=== PATIENT | male | born 1945 | race Caucasian/White ===

== ENCOUNTER 2016-10-15 07:33 | Day surgery (SDC) | payer MEDICARE, OTHER ==
[~2016-10-15 07:33] MED LIST: LACTATED RINGERS 1,000 ML IV ONE; SIMETHICONE 40 MG/0.6 ML 30 ML BOTTLE PO ONE
[2016-10-15] MEDS ORDERED: MIDAZOLAM 2 MG/2 ML VIAL IVP ONE (08:10)
[2016-10-15] MEDS ORDERED: fentaNYL 250 MCG/5 ML VIAL IVP ONE (08:10)
== END 2016-10-15 07:34 | disposition home or self-care (01) ==
PROC: 0DBP8ZX Excision of Rectum, Via Natural or Artificial Opening Endoscopic, Diagnostic (ICD-10-PCS; principal; 2016-10-15 08:30)
DX: Z12.11 Encounter for screening for malignant neoplasm of colon (principal); K62.1 Rectal polyp; K64.8 Other hemorrhoids; Z80.0 Family history of malignant neoplasm of digestive organs
CPT/HCPCS: 45380; A9270; J3010; J7120

== ENCOUNTER 2017-04-08 12:19 | Outpatient (CLI) | payer MEDICARE, OTHER | END 2017-04-08 12:20 | disposition critical access hospital (66) | LOC: EMS 12:19 | PROVIDERS: ATTEND Surgery | DX: R40.4 Transient alteration of awareness (principal); W01.198A Fall on same level from slipping, tripping and stumbling with subsequent striking against other object, initial encounter; Y93.89 Activity, other specified; Y92.89 Other specified places as the place of occurrence of the external cause | CPT/HCPCS: A0425; A0427 ==

== ENCOUNTER 2017-04-08 12:23 | Emergency (ER) | payer MEDICARE, OTHER ==
--- NOTE | 2017-04-08 12:38 | ED Physician Documentation ---
PD HPI Fall - Stated complaint Stated Complaint: GLF - Chief complaint Chief Complaint: General - History obtained from History obtained from: Patient, EMS - History of Present Illness Mechanism of injury: Lost balance Fall distance: Standing position (fell backward) Where injury occurred: Home Injury(ies) location: Head Associated symptoms: LOC (few seconds, about 30 seconds, per family, then was dazed for minutes more. Seemed cleared by EMS arrival.). No: Neck pain, Weakness, Paresthesias, Dyspnea, Nausea / vomiting Worsens with: Palpation Contributing factors: No: Anticoagulated, Intoxicated Similar symptoms before: Has not had sx before Recently seen: Not recently seen Review of Systems Constitutional: denies: Fever, Chills Nose: denies: Rhinorrhea / runny nose, Congestion Throat: denies: Sore throat Cardiac: denies: Chest pain / pressure Respiratory: denies: Cough GI: denies: Abdominal Pain, Nausea, Vomiting Skin: reports: Abrasion (s). denies: Laceration (s) Neurologic: denies: Focal weakness, Numbness, Headache PD PAST MEDICAL HISTORY - Past Medical History Past Medical History: Yes Cardiovascular: None Respiratory: None Neuro: Multiple sclerosis GI: None : None HEENT: None Psych: None Musculoskeletal: Osteoporosis Derm: None Other Past Medical History: MS - Past Surgical History General: Colonoscopy Ortho: Spine surgery - Present Medications Home Medications: Ambulatory Orders Medication Instructions Recorded Confirmed Interferon Beta-1A [Avonex Pen] 30 mcg IM ONCE 10/12/16 04/08/17 Levothyroxine Sodium [Synthroid] 112 mcg PO DAILY 10/12/16 04/08/17 Multivitamin [Multiple Vitamins] 1 each PO DAILY 10/12/16 04/08/17 Calcium Acetate 667 mg PO DAILY 04/08/17 04/08/17 - Allergies Allergies/Adverse Reactions: Allergies Allergy/AdvReac Type Severity Reaction Status Date / Time No Known Drug Allergies Allergy Verified 10/12/16 14:10 - Social History Does the pt smoke?: No Smoking Status: Never smoker PD ED PE NORMAL - Vitals Vital signs reviewed: Yes - General General: Alert and oriented X 3, No acute distress, Well developed/nourished - HEENT HEENT: PERRL, EOMI, Other (mild tenderness with abrasion occiput. ) - Neck Neck: Supple, no meningeal sign, No bony TTP, No adenopathy, Other (full ROM without neck pain nor neuro symptoms. Alert and conversant. ) - Cardiac Cardiac: RRR, No murmur - Respiratory Respiratory: Clear bilaterally - Abdomen Abdomen: Soft, Non tender - Back Back: No spinal TTP - Derm Derm: Normal color, Warm and dry - Extremities Extremities: No tenderness to palpate, Normal ROM s pain - Neuro Neuro: Alert and oriented X 3, auto servicer 2-12 intact, No motor deficit, No sensory deficit, Normal speech, Other - Psych Psych: Normal mood, Normal affect Results - Vitals Vitals: Oxygen O2 Source Room air - Rads (name of study) head CT Radiology: Prelim report reviewed (normal for age. No bleeding. ) PD MEDICAL DECISION MAKING - ED course Complexity details: reviewed results, considered differential (brief concussive symptoms and seems okay now. CT normal. No blood thinners. ), d/w patient Departure - Departure Disposition: 01 Home, Self Care Clinical Impression: Fall from slip, trip, or stumble Qualifiers: Encounter type: initial encounter Qualified Code(s): W01.0XXA - Fall on same level from slipping, tripping and stumbling without subsequent striking against object, initial encounter Mild concussion Qualifiers: Encounter type: initial encounter Loss of consciousness presence/duration: with LOC of 30 min or less Qualified Code(s): S06.0X1A - Concussion with loss of consciousness of 30 minutes or less, initial encounter Condition: Stable Record reviewed to determine appropriate education?: Yes Instructions: ED Concussion Follow-Up: Johana Cortes MD [Primary Care Provider] - Comments: Tylenol if needed for headache or pains. Cleanse the abrasion on her scalp twice daily and apply some antibiotic ointment or some ointment so does not get dry and hard. Recheck if signs of worse head injury. Expect likely some mild headaches, slight confusion, worsened balance mildly for 2-3 days. Discharge Date/Time: 04/08/17 14:06
--- NOTE | 2017-04-08 13:39 | CT Preliminary Report ---
Exam: CT Head W/O IMPRESSION: 1. Chronic white matter disease without significant change given difference in technique compared to 2008. 2. No acute hemorrhage or fracture. 3. Ethmoid sinus inflammatory disease. [facility] SITE ID: [id number]
--- NOTE | 2017-04-08 13:42 | CT Report ---
EXAM: CT HEAD EXAM DATE: 04/08/2017 01:28 PM. CLINICAL HISTORY: Fall with struck head, some concussive sxs. COMPARISON: Brain MRI 01/09/2008. TECHNIQUE: Multiaxial CT images were obtained from the foramen magnum to the vertex. IV contrast: Non e. Reformats: Coronal. In accordance with CT protocol optimization, one or more of the following dose reduction techniques w ere utilized for this exam: automated exposure control, adjustment of mA and/or KV based on patient s ize, or use of iterative reconstructive technique. FINDINGS: Parenchyma: There is mild to moderate periventricular white matter hypodensity. Negative for acute he morrhage. No midline shift or mass effect. Extraaxial Spaces: No abnormal subdural or epidural fluid collection. Ventricles: Normal in size and position. Sinuses: There is ethmoid sinus mucosal thickening. Mastoid sinuses are clear. Bones: No evidence of fracture or calvarial defect. Other: None. IMPRESSION: 1. Chronic white matter disease without significant change given difference in technique compared to 2007. 2. No acute hemorrhage or fracture. 3. Ethmoid sinus inflammatory disease. [facility] Referring Provider Line: [phone] SITE ID: [id number]
[2017-04-08 14:00] VITALS: BP 143/81
== END 2017-04-08 14:06 | disposition home or self-care (01) ==
LOC: EDUNIT# → ED 12:23
DX: S06.0X1A Concussion with loss of consciousness of 30 minutes or less, initial encounter (principal); S00.01XA Abrasion of scalp, initial encounter; W01.0XXA Fall on same level from slipping, tripping and stumbling without subsequent striking against object, initial encounter; Y92.019 Unspecified place in single-family (private) house as the place of occurrence of the external cause; G35 Multiple sclerosis; M81.0 Age-related osteoporosis without current pathological fracture
CPT/HCPCS: 70450; 99283

== ENCOUNTER 2019-12-28 18:51 | Outpatient (CLI) | payer MEDICARE | END 2019-12-28 18:52 | disposition home or self-care (01) | LOC: COV 18:51 | PROVIDERS: ATTEND Family Medicine | DX: R05 Cough (principal); R19.7 Diarrhea, unspecified | CPT/HCPCS: 81599 ==

== ENCOUNTER 2021-06-10 11:51 | Emergency (ER) | payer MEDICARE ==
[2021-06-10 12:02] VITALS: BP 134/72
--- NOTE | 2021-06-10 12:26 | ED Physician Documentation ---
History of Present Illness - Stated complaint Stated Complaint: CATH ISSUES - Chief complaint Chief Complaint: General - History obtained from History obtained from: Patient - Additonal information Additional information: He has had a catheter in for about a week now for BPH and urinary retention. He needs a new leg bag because the leg bag is leaking. The catheter is not leaking itself. Review of Systems Constitutional: reports: Reviewed and negative Eyes: reports: Reviewed and negative Ears: reports: Reviewed and negative Nose: reports: Reviewed and negative PD PAST MEDICAL HISTORY - Past Medical History Cardiovascular: None Respiratory: None GI: None : None HEENT: None Psych: None Musculoskeletal: Osteoporosis Derm: None - Past Surgical History General: Colonoscopy Ortho: Spine surgery - Present Medications Home Medications: Ambulatory Orders Medication Instructions Recorded Confirmed Interferon Beta-1A [Avonex Pen] 30 mcg IM ONCE 10/12/16 04/08/17 Levothyroxine Sodium [Synthroid] 112 mcg PO DAILY 10/12/16 04/08/17 Multivitamin [Multiple Vitamins] 1 each PO DAILY 10/12/16 04/08/17 Calcium Acetate 667 mg PO DAILY 04/08/17 04/08/17 - Allergies Allergies/Adverse Reactions: Allergies Allergy/AdvReac Type Severity Reaction Status Date / Time No Known Drug Allergies Allergy Verified 06/10/21 12:01 - Social History Does the pt smoke?: No Smoking Status: Never smoker PD ED PE NORMAL - Vitals Vital signs reviewed: Yes - General General: Alert and oriented X 3, No acute distress - Male Male : Other (Boateng catheter in place with some leakage from the leg bag, the leg bag was replaced during examination. There is no leaking near the penis itself.) - Neuro Neuro: Alert and oriented X 3, Normal speech Results - Vitals Vitals: Vital Signs - 24 hr 06/10/21 11:54 Temperature 36.3 C L Heart Rate 66 Respiratory 18 Rate Blood Pressure 134/72 H O2 Saturation 97 Oxygen O2 Source Room air Departure - Departure Disposition: 01 Home, Self Care Clinical Impression: Boateng catheter problem Qualifiers: Encounter type: initial encounter Qualified Code(s): T83.9XXA - Unspecified complication of genitourinary prosthetic device, implant and graft, initial encounter Condition: Good Record reviewed to determine appropriate education?: Yes Instructions: ED Catheter Care Boateng, Leg Bag Care Me
== END 2021-06-10 12:30 | disposition home or self-care (01) ==
LOC: ED 11:51
DX: Z46.89 Encounter for fitting and adjustment of other specified devices (principal); Y73.2 Prosthetic and other implants, materials and accessory gastroenterology and urology devices associated with adverse incidents; N40.1 Benign prostatic hyperplasia with lower urinary tract symptoms; R33.8 Other retention of urine
CPT/HCPCS: 99281; 99283

== ENCOUNTER 2021-08-18 20:17 | Emergency (ER) | payer MEDICARE ==
[2021-08-18 20:24] VITALS: BP 165/82
--- NOTE | 2021-08-18 21:20 | ED Physician Documentation ---
History of Present Illness - Stated complaint Stated Complaint: OBSTRUCTED CAMACHO CATH - Chief complaint Chief Complaint: Abd Pain - History obtained from History obtained from: Patient - Additonal information Additional information: 75-year-old man with history of BPH with chronic indwelling camacho presents with inability to drain the Camacho since about 1 PM today. Denies fever, back pain, abdominal pain, hematuria. Does endorse gradual onset increasing suprapubic fullness over the day today. Review of Systems Constitutional: denies: Fever GI: reports: Abdominal Pain : reports: Unable to Void. denies: Hematuria PD PAST MEDICAL HISTORY - Past Medical History Cardiovascular: None Respiratory: None GI: None : None HEENT: None Psych: None Musculoskeletal: Osteoporosis Derm: None - Past Surgical History General: Colonoscopy Ortho: Spine surgery - Present Medications Home Medications: Ambulatory Orders Medication Instructions Recorded Confirmed Interferon Beta-1A [Avonex Pen] 30 mcg IM ONCE 10/12/16 04/08/17 Levothyroxine Sodium [Synthroid] 112 mcg PO DAILY 10/12/16 04/08/17 Multivitamin [Multiple Vitamins] 1 each PO DAILY 10/12/16 04/08/17 Calcium Acetate 667 mg PO DAILY 04/08/17 04/08/17 - Allergies Allergies/Adverse Reactions: Allergies Allergy/AdvReac Type Severity Reaction Status Date / Time No Known Drug Allergies Allergy Verified 08/18/21 20:24 - Social History Does the pt smoke?: No Smoking Status: Never smoker PD ED PE NORMAL - Vitals Vital signs reviewed: Yes - General General: Alert and oriented X 3, No acute distress, Well developed/nourished - HEENT HEENT: Atraumatic, PERRL, EOMI - Abdomen Abdomen: Other (suprapubic fullness, relieved s/p camacho irrigation with immediate release of at least 500cc urine) - Back Back: No CVA TTP - Derm Derm: Normal color, Warm and dry - Extremities Extremities: No deformity - Neuro Neuro: Alert and oriented X 3 Results - Vitals Vitals: Vital Signs - 24 hr 08/18/21 20:21 Temperature 36.3 C L Heart Rate 88 Respiratory 18 Rate Blood Pressure 165/82 H O2 Saturation 97 Oxygen O2 Source Room air PD MEDICAL DECISION MAKING - ED course ED course: 75yM p/w camacho blockage, resolved s/p irrigation. return precautions given. plan to f/u with urology. Departure - Departure Disposition: 01 Home, Self Care Clinical Impression: Malfunction of Camacho catheter Condition: Good Instructions: ED Catheter Care Camacho Comments: You were seen in the emergency department for evaluation of your camacho catheter which was not draining. We irrigated and unblocked it and it is draining well now. Please follow up for your upcoming urology appointment and return to the ED if you have any other issues or concerns. Nice meeting you!
== END 2021-08-18 21:26 | disposition home or self-care (01) ==
LOC: ED 20:17
DX: T83.091A Other mechanical complication of indwelling urethral catheter, initial encounter (principal); R10.9 Unspecified abdominal pain; N40.0 Benign prostatic hyperplasia without lower urinary tract symptoms
CPT/HCPCS: 51798; 99281; 99282

== ENCOUNTER 2021-09-05 20:39 | Emergency (ER) | payer MEDICARE ==
--- NOTE | 2021-09-06 00:08 | ED Physician Documentation ---
History of Present Illness - Stated complaint Stated Complaint: MALE - Chief complaint Chief Complaint: General - History obtained from History obtained from: Patient - Additonal information Additional information: 75-year-old man with chronic urinary retention from BPH presents after having his Boateng removed today. Patient was given coud catheter but was unable to self cath and so came to the emergency department. Asymptomatic aside from some mild suprapubic fullness. Review of Systems Constitutional: denies: Fever, Chills GI: denies: Abdominal Pain : denies: Dysuria, Frequency PD PAST MEDICAL HISTORY - Past Medical History Past Medical History: Yes Cardiovascular: None Respiratory: None GI: None : Retention HEENT: None Psych: None Musculoskeletal: Osteoporosis Derm: None - Past Surgical History General: Colonoscopy Ortho: Spine surgery - Present Medications Home Medications: Ambulatory Orders Medication Instructions Recorded Confirmed Interferon Beta-1A [Avonex Pen] 30 mcg IM ONCE 10/12/16 04/08/17 Levothyroxine Sodium [Synthroid] 112 mcg PO DAILY 10/12/16 04/08/17 Multivitamin [Multiple Vitamins] 1 each PO DAILY 10/12/16 04/08/17 Calcium Acetate 667 mg PO DAILY 04/08/17 04/08/17 - Allergies Allergies/Adverse Reactions: Allergies Allergy/AdvReac Type Severity Reaction Status Date / Time No Known Drug Allergies Allergy Verified 09/05/21 20:41 - Social History Does the pt smoke?: No Smoking Status: Never smoker PD ED PE NORMAL - Vitals Vital signs reviewed: Yes - General General: Alert and oriented X 3, No acute distress, Well developed/nourished - HEENT HEENT: PERRL, EOMI - Abdomen Abdomen: Non tender, Non distended - Derm Derm: Normal color, Warm and dry - Extremities Extremities: No deformity - Neuro Neuro: Alert and oriented X 3 Results - Vitals Vitals: Vital Signs - 24 hr 09/05/21 09/05/21 20:41 22:38 Temperature 36.5 C Heart Rate 76 78 Respiratory 16 16 Rate Blood Pressure 150/80 H 133/79 H O2 Saturation 99 98 Oxygen O2 Source Room air PD MEDICAL DECISION MAKING - ED course ED course: 75-year-old man presents with acute on chronic urinary retention. Catheter placed without difficulty. Return precautions given. Plan to follow-up with his urologist. Departure - Departure Disposition: Home, Self Care Clinical Impression: Acute on chronic urinary retention Condition: Good Instructions: Leg Bag Care Dc Comments: You were seen in the emergency department for Boateng placement. Please follow-up with your urologist. Return to the emergency department if you have new or worsening symptoms or other concerns.
[2021-09-06 00:19] VITALS: BP 135/78
== END 2021-09-06 00:21 | disposition home or self-care (01) ==
LOC: ED 20:39
DX: N40.1 Benign prostatic hyperplasia with lower urinary tract symptoms (principal); R33.8 Other retention of urine
CPT/HCPCS: 51702; 51798; 99282; 99283

== ENCOUNTER 2022-02-09 08:00 | Outpatient (CLI) | payer MEDICARE ==
[2022-02-09 16:13] LABS: EOSINOPHILS # (AUTO) 0.2 10^3/uL (0.0-0.7); EOSINOPHILS % (AUTO) 5.2 %; HCT - HEMATOCRIT 43.2 % (42.0-52.0); HGB - HEMOGLOBIN 14.1 g/dL (14.0-18.0); LYMPHOCYTES # (AUTO) 1.3 10^3/uL (1.5-3.5); LYMPHOCYTES % (AUTO) 32.7 %; MEAN CORPUSCULAR HEMOGLOBIN 29.4 pg (27.0-31.0); MEAN CORPUSCULAR HGB CONC 32.6 g/dL (32.0-36.0); MEAN CORPUSCULAR VOLUME 90.2 fL (80.0-94.0); MEAN PLATELET VOLUME 10.7 fL (7.4-11.4); MONOCYTES # (AUTO) 0.6 10^3/uL (0.0-1.0); MONOCYTES % (AUTO) 15.5 %; NEUTROPHILS # (AUTO) 1.8 10^3/uL (1.5-6.6); NEUTROPHILS % (AUTO) 45.3 %; PLT - PLATELET COUNT 245 10^3/uL (130-450); RED BLOOD COUNT 4.79 10^6/uL (4.70-6.10); RED CELL DISTRIBUTION WIDTH 13.8 % (12.0-15.0); WHITE BLOOD COUNT 3.9 x10^3/uL (4.8-10.8)
[2022-02-09 16:30] LABS: ALBUMIN 4.2 g/dL (3.2-5.5); ALBUMIN/GLOBULIN RATIO 1.3 (1.0-2.2); CALCIUM 9.1 mg/dL (8.5-10.3); CREATININE 0.6 mg/dL (0.6-1.2); POTASSIUM 4.3 mmol/L (3.5-5.0); TOTAL PROTEIN 7.5 g/dL (6.7-8.2)
== END 2022-02-09 23:59 | disposition home or self-care (01) ==
LOC: LAB.R 08:00
PROVIDERS: ATTEND Internal Medicine
DX: Z00.00 Encounter for general adult medical examination without abnormal findings (principal); N40.0 Benign prostatic hyperplasia without lower urinary tract symptoms; E03.9 Hypothyroidism, unspecified; R73.01 Impaired fasting glucose; G35 Multiple sclerosis; M85.80 Other specified disorders of bone density and structure, unspecified site; Z79.899 Other long term (current) drug therapy; E55.9 Vitamin D deficiency, unspecified
CPT/HCPCS: 80053; 82306; 84153; 84443; 85025

== ENCOUNTER 2023-01-11 20:41 | Outpatient (CLI) | payer MEDICARE | END 2023-01-11 20:42 | disposition EMS.NT | LOC: EMS 20:41 | DX: R55 Syncope and collapse (principal) ==

== ENCOUNTER 2024-05-04 10:36 | Emergency (ER) | payer MEDICARE ==
--- NOTE | 2024-05-04 11:21 | ED Physician Documentation ---
History of Present Illness - Stated complaint Stated Complaint: BACK PX,RT SHOULDER PX - Chief complaint Chief Complaint: Back Pain - History obtained from History obtained from: Patient, Family - Additonal information Additional information: 78-year-old gentleman with history of MS currently stable without immunologic therapy presents accompanied by daughter. Prior to patient arrival Dr. Mulligan who is his next-door neighbor came by and told me some information about him to. 3 weeks ago he fell. Since then he has been having severe right shoulder pain and difficulty with range of motion but he also got COVID a few weeks ago which he feels he is better from, but admits to poor appetite with weight loss of unclear amount. He says he had a routine physical a few weeks ago with normal exam and basic labs at that time. He has had increasing dependence on using walking sticks to help with balance and shuffling gait. PD PAST MEDICAL HISTORY - Past Medical History Cardiovascular: None Respiratory: None Neuro: Multiple sclerosis GI: None : Retention HEENT: None Psych: None Musculoskeletal: Osteoporosis, Chronic back pain Derm: None - Past Surgical History General: Colonoscopy Ortho: Spine surgery - Present Medications Home Medications: Ambulatory Orders Medication Instructions Recorded Confirmed Interferon Beta-1A [Avonex Pen] 30 mcg IM ONCE 10/12/16 04/08/17 Levothyroxine Sodium [Synthroid] 112 mcg PO DAILY 10/12/16 04/08/17 Multivitamin [Multiple Vitamins] 1 each PO DAILY 10/12/16 04/08/17 Calcium Acetate 667 mg PO DAILY 04/08/17 04/08/17 Ciprofloxacin HCl [Cipro] 500 mg PO BID #20 tablet 05/04/24 - Allergies Allergies/Adverse Reactions: Allergies Allergy/AdvReac Type Severity Reaction Status Date / Time No Known Drug Allergies Allergy Verified 05/04/24 11:05 - Social History Does the pt smoke?: No Smoking Status: Never smoker Does the pt drink ETOH?: Yes Does the pt have substance abuse?: No PD ED PE NORMAL - Vitals Vital signs reviewed: Yes - General General: Alert and oriented X 3, No acute distress - HEENT HEENT: PERRL, EOMI - Neck Neck: Supple, no meningeal sign, No bony TTP - Cardiac Cardiac: RRR, No murmur - Respiratory Respiratory: No respiratory distress, Clear bilaterally - Abdomen Abdomen: Non tender - Back Back: No spinal TTP - Extremities Extremities: Other (Right shoulder is severely tender without deformity. He can abduct to about 90 degrees and no better.) - Neuro Neuro: Alert and oriented X 3, loan review analyst 2-12 intact, Normal speech Eye Opening: Spontaneous Motor: Obeys Commands Verbal: Oriented GCS Score: 15 - Psych Psych: Normal mood, Normal affect Results - Vitals Vitals: Vital Signs - 24 hr 05/04/24 05/04/24 10:57 13:48 Temperature 37.2 C 36.8 C Heart Rate 88 86 Respiratory 18 18 Rate Blood Pressure 130/95 H 111/56 L O2 Saturation 95 96 Oxygen O2 Source Room air - Labs Labs: Laboratory Tests 05/04/24 05/04/24 05/04/24 11:35 11:35 13:28 WBC 13.6 H RBC 4.87 Hgb 14.2 Hct 41.2 L MCV 84.6 MCH 29.2 MCHC 34.5 RDW 14.7 Plt Count 105 L MPV 11.2 Neut # (Auto) 12.1 H Lymph # (Auto) 0.4 L Allen # (Auto) 0.8 Eos # (Auto) 0.0 Baso # (Auto) 0.1 Absolute Nucleated RBC 0.00 Nucleated RBC % 0.0 Sodium 131 L Potassium 4.3 Chloride 98 L Carbon Dioxide 27 Anion Gap 6.0 BUN 58 H Creatinine 1.1 Estimated GFR (MDRD) 65 L Glucose 138 H Calcium 8.6 Total Bilirubin 2.3 H AST 42 ALT 33 Alkaline Phosphatase 206 H Total Protein 6.2 L Albumin 3.0 L Globulin 3.2 Albumin/Globulin Ratio 0.9 L Urine Color DARK YELLOW Urine Clarity CLOUDY Urine pH 8.0 H Ur Specific [place] 1.015 Urine Protein 100 H Urine Glucose (UA) NEGATIVE Urine Ketones NEGATIVE Urine Occult Blood LARGE H Urine Nitrite POSITIVE H Urine Bilirubin SMALL H Urine Urobilinogen 1 (NORMAL) Ur Leukocyte Esterase LARGE H Urine RBC TNTC H Urine WBC >25 H Ur Squamous Epith Cells NONE SEEN Amorphous Sediment Few Urine Bacteria Many H Urine Mucus Moderate Strands Ur Microscopic Review INDICATED Urine Culture Comments INDICATED - Rads (name of study) Three-view x-ray of the right shoulder demonstrates severe glenohumeral osteoarthritis without acute abnormality Relevant Findings:: Final report received, EMP independent interpretation of test PD Medical Decision Making - ED course ED course: 78-year-old gentleman with severe right shoulder pain and back pain, weight loss and worsening gait. Workup demonstrates leukocytosis, CMP notable for mild hyponatremia with mild elevation in bilirubin and alkaline phosphatase. CT imaging demonstrates potentially chronic aspiration or bronchitis. He thinks bronchitis from recent COVID. Also multiple kidney and bladder stones with potentially obstructing stone on the right and a very large nonobstructing stone on the left. He does self cath for large prostate. Subsequently given the pyuria present I discussed the case by phone with Dr. Arnett, our urologist and he reviewed the images. He does not feel that the patient needs urgent intervention or cystoscopy and I agree and that the patient certainly does not appear toxic but agreed with antibiotics and outpatient follow-up. Departure - Departure Disposition: Home, Self Care Clinical Impression: Pyelonephritis, Kidney stone on right side, Kidney stone on left side Osteoarthritis, shoulder Qualifiers: Osteoarthritis type: primary Laterality: right Qualified Code(s): M19.011 - Primary osteoarthritis, right shoulder Condition: Good Record reviewed to determine appropriate education?: Yes Instructions: Pyelonephritis Dc Follow-Up: Darrel Arnett MD [Provider Admit Priv/Credential] - [facility] [Provider Group] Prescriptions: Ciprofloxacin HCl [Cipro] 500 mg PO BID #20 tablet Comments: For the osteoarthritis I would recommend Tylenol over Aleve. That said you been taking Aleve without apparent ill effect so that seems okay as well. Tylenol does have less side effects though. You do have the kidney infection in the kidney stones. I have talked with our urologist who wants to see you in the clinic, and we are performing a urine culture. If a resistant organism is identified we will call you. That said you should still start the current antibiotics with second dose being tonight, first dose given in the emergency department. As far as the shoulder goes you can follow-up with our orthopedic surgeons for further evaluation and treatment. Return for new or worsening symptoms. Discharge Date/Time: 05/04/24 14:37
[2024-05-04] MEDS: ACETAMINOPHEN 500 MG TABLET PO STA (11:29)
--- NOTE | 2024-05-04 11:36 | XRAY Report ---
PROCEDURE: Shoulder 2+V RT INDICATIONS: R shoulder pain TECHNIQUE: 3 views of the shoulder were acquired. COMPARISON: None. FINDINGS: Bones: No fractures or dislocations. No suspicious bony lesions. Severe glenohumeral joint degenera tive change with osteophytosis and joint space loss. Visualized ribs appear intact. Soft tissues: No suspicious soft tissue calcifications. The visualized lungs are within normal limi ts. IMPRESSION: Severe glenohumeral joint degenerative arthritis. No acute bony abnormality. Reviewed by: Saurabh Duenas MD on 05/04/2024 11:35 AM PDT Approved by: Saurabh Duenas MD on 05/04/2024 11:35 AM PDT Station ID: [id number]
[2024-05-04 11:43] LABS: BASOPHILS # (AUTO) 0.1 10^3/uL (0.0-0.1); BASOPHILS % (AUTO) 0.6 %; EOSINOPHILS % (AUTO) 0.3 %; HCT - HEMATOCRIT 41.2 % (42.0-52.0); HGB - HEMOGLOBIN 14.2 g/dL (14.0-18.0); LYMPHOCYTES # (AUTO) 0.4 10^3/uL (1.5-3.5); LYMPHOCYTES % (AUTO) 2.7 %; MEAN CORPUSCULAR HEMOGLOBIN 29.2 pg (27.0-31.0); MEAN CORPUSCULAR HGB CONC 34.5 g/dL (32.0-36.0); MEAN CORPUSCULAR VOLUME 84.6 fL (80.0-94.0); MEAN PLATELET VOLUME 11.2 fL (7.4-11.4); MONOCYTES # (AUTO) 0.8 10^3/uL (0.0-1.0); MONOCYTES % (AUTO) 5.9 %; NEUTROPHILS # (AUTO) 12.1 10^3/uL (1.5-6.6); NEUTROPHILS % (AUTO) 89.1 %; PLT - PLATELET COUNT 105 10^3/uL (130-450); RED BLOOD COUNT 4.87 10^6/uL (4.70-6.10); RED CELL DISTRIBUTION WIDTH 14.7 % (12.0-15.0); WHITE BLOOD COUNT 13.6 x10^3/uL (4.8-10.8)
[2024-05-04 11:56] LABS: ALBUMIN/GLOBULIN RATIO 0.9 (1.0-2.2); BILIRUBIN,TOTAL 2.3 mg/dL (0.2-1.0); CALCIUM 8.6 mg/dL (8.5-10.3); CREATININE 1.1 mg/dL (0.6-1.3); POTASSIUM 4.3 mmol/L (3.5-4.5); TOTAL PROTEIN 6.2 g/dL (6.4-8.9)
--- NOTE | 2024-05-04 13:05 | CT Report ---
PROCEDURE: Abdomen/Pelvis WO INDICATIONS: weight loss, back pain TECHNIQUE: A CT scan of the abdomen and pelvis was performed without the use of intravenous contrast. Images we re recorded and evaluated at appropriate window settings. Reformats: coronal and sagittal. For radiat ion dose reduction, the following was used: automated exposure control, adjustment of mA and/or kV ac cording to patient size. COMPARISON: None. FINDINGS: Image quality: Diagnostic. Lower chest: Separately dictated. Liver: Hepatic cyst in segment 2/3. Additional subcentimeter hypoattenuating lesions are present, too small to characterize by CT, but probably small cysts. Gallbladder: Surgically absent. Biliary tree: No intrahepatic or extrahepatic dilation, accounting for age. Spleen: No splenomegaly. Pancreas: No pancreatic ductal dilation. Adrenals: No adrenal nodule. Kidneys and ureters: The right kidney is edematous, the microcatheter hydronephrosis. There is a 3 mm stone in the extrarenal pelvis (series 2, image 72). Additional moderate burden of small nonobstruct ing nephrolithiasis. 2.2 x 1.3 cm stone within the left extrarenal pelvis of the left kidney, without hydronephrosis. The right renal pelvis appears hyperattenuating. Stomach, bowel and peritoneum: No gastric or small bowel dilation. No abnormal wall thickening. No pa thologic free fluid. Lymph nodes: No central or retroperitoneal adenopathy. Vessels: No infrarenal aortic aneurysm. Reproductive organs: Prostatomegaly. Bladder: Bladder wall thickness is normal, accounting for underdistention. Numerous punctate bladder stones. Pelvic lymph nodes: No adenopathy by size criteria. Bones: No aggressive osseous abnormality. Degenerative changes of the spine. Other: No significant ventral or inguinal hernia. IMPRESSION: 3 mm stone in the right renal pelvis, resulting in moderate hydronephrosis. This is probably obstruct ing. Alternatively, there could be an obstructing mass in the right renal pelvis given weight loss an d hyperattenuation of the renal pelvis. Blood products is also a consideration. Consider urology refe rral for further management, as CT IVP or direct visualization may be necessary. Numerous bladder stones. 2.2 x 1.3 cm stone in the left extra renal pelvis, without hydronephrosis. Reviewed by: Brenden Cortez MD on 05/04/2024 1:04 PM PDT Approved by: Brenden Cortez MD on 05/04/2024 1:04 PM PDT Station ID: [id number]
--- NOTE | 2024-05-04 13:12 | CT Report ---
PROCEDURE: Chest WO INDICATIONS: weight loss, back pain TECHNIQUE: A CT scan of the chest was performed. Intravenous contrast media was not administered. Images were re corded and evaluated at appropriate window settings. Reformats: axial MIP of the chest, coronal and s agittal. For radiation dose reduction, the following was used: automated exposure control, adjustment of mA and/or kV according to patient size. COMPARISON: Same day CT abdomen pelvis FINDINGS: Image quality: Diagnostic. Chest wall and lower neck: No thyroid nodule which requires sonographic follow up. No axillary or sup raclavicular adenopathy by size. Lungs and pleura: No consolidation. No pleural effusions. No pneumothorax. Dependent tree-in-bud nod ules and centrilobular nodules in the upper lobes. Mild bibasilar atelectasis. Mediastinum: Heart size is normal. No pericardial effusion. No large vessel abnormality. No mediastin al adenopathy by size criteria. Three-vessel coronary artery calcifications. Bones: No aggressive osseous abnormality. Upper Abdomen: Separately dictated. IMPRESSION: Dependent tree-in-bud nodules and centrilobular nodules in the upper lobes. Findings favor either asp iration or infectious bronchiolitis. Correlate with risk factors for aspiration. Consider 3 month fol low-up to ensure resolution. Please see same day abdominal CT for further discussion. Reviewed by: Brenden Cortez MD on 05/04/2024 1:11 PM PDT Approved by: Brenden Cortez MD on 05/04/2024 1:11 PM PDT Station ID: [id number]
[2024-05-04 13:40] LABS: BILIRUBIN,URINE SMALL (NEGATIVE); GLUCOSE, URINE (UA) NEGATIVE (NEGATIVE); KETONES,URINE (UA) NEGATIVE (NEGATIVE); LEUKOCYTE ESTERASE, URINE LARGE (NEGATIVE); NITRITE,URINE POSITIVE (NEGATIVE); OCCULT BLOOD,URINE LARGE (NEGATIVE); PROTEIN,URINE 100 mg/dL (NEGATIVE); UROBILINOGEN,URINE 1 (NORMAL) E.U./dL (NORMAL)
[2024-05-04 13:42] LABS: CLARITY,URINE CLOUDY (CLEAR)
[2024-05-04 13:59] VITALS: BP 111/56; O2SAT 96
[2024-05-04] MEDS: CIPROFLOXACIN 250 MG TABLET PO STA (14:02)
[2024-05-04 14:23] LABS: AMORPHOUS SEDIMENT,UR Few /LPF; BACTERIA,URINE Many /HPF (None Seen); MUCUS,URINE Moderate Strands; RBC,URINE TNTC /HPF (0-5); SQUAMOUS EPITHELIAL CELL,UR NONE SEEN (<= Few); WBC,URINE >25 /HPF (0-3)
== END 2024-05-04 14:37 | disposition home or self-care (01) ==
LOC: ED 10:36
DX: N12 Tubulo-interstitial nephritis, not specified as acute or chronic (principal); N20.0 Calculus of kidney; M19.011 Primary osteoarthritis, right shoulder
CPT/HCPCS: 36415; 71250; 73030; 74176; 80053; 81001; 85025; 87077; 87086; 87181; 99284; A9270; 81003

== ENCOUNTER 2024-05-05 10:43 | Outpatient (CLI) | payer MEDICARE | END 2024-05-05 10:44 | disposition critical access hospital (66) | LOC: EMS 10:43 | DX: R25.1 Tremor, unspecified (principal); M54.50 Low back pain, unspecified; R44.8 Other symptoms and signs involving general sensations and perceptions | CPT/HCPCS: A0425; A0429 ==

== ENCOUNTER 2024-05-05 10:48 | Inpatient (IN) | payer MEDICARE ==
--- NOTE | 2024-05-05 11:15 | ED Physician Documentation ---
History of Present Illness - Stated complaint Stated Complaint: BACK PX/KIDNEY STONES - Chief complaint Chief Complaint: General - History obtained from History obtained from: Patient, EMS - Additonal information Additional information: 78-year-old gentleman with history of chronic stable MS and large prostate necessitating self cathing. I saw him yesterday for variety of complaints, but he was found to have modest leukocytosis with potentially obstructing right high ureterolith and a positive urinalysis. Urology was consulted and he was placed on Cipro. This morning he is very weak and started having shaking chills. Still has a lot of back pain but really only with movement, declines pain medication at rest. No measured fever at home. PD PAST MEDICAL HISTORY - Past Medical History Past Medical History: Yes Cardiovascular: None Respiratory: None Neuro: Multiple sclerosis GI: None : Retention, Kidney stones HEENT: None Psych: None Musculoskeletal: Osteoporosis, Chronic back pain Derm: None - Past Surgical History Past Surgical History: Yes General: Colonoscopy Ortho: Spine surgery - Present Medications Home Medications: Ambulatory Orders Medication Instructions Recorded Confirmed Levothyroxine Sodium [Synthroid] 112 mcg PO DAILY 10/12/16 05/05/24 Ciprofloxacin HCl [Cipro] 500 mg PO BID #20 tablet 05/04/24 05/05/24 Tamsulosin [Flomax] 0.8 mg PO DAILY 05/05/24 05/05/24 methocarbamoL [Methocarbamol] 750 mg PO TID PRN 05/05/24 05/05/24 - Allergies Allergies/Adverse Reactions: Allergies Allergy/AdvReac Type Severity Reaction Status Date / Time No Known Drug Allergies Allergy Verified 05/05/24 10:55 - Social History Does the pt smoke?: No Smoking Status: Never smoker Does the pt drink ETOH?: Yes Does the pt have substance abuse?: No PD ED PE NORMAL - Vitals Vital signs reviewed: Yes - General General: Alert and oriented X 3, Other (He appears weak and ill albeit not toxic per se.) - Neck Neck: Supple, no meningeal sign, No bony TTP - Cardiac Cardiac: Other (Mild resting tachycardia, regular without murmur) - Respiratory Respiratory: No respiratory distress, Clear bilaterally - Abdomen Abdomen: Non tender - Extremities Extremities: No edema, No calf tenderness / cord - Neuro Neuro: Alert and oriented X 3 Results - Vitals Vitals: Vital Signs - 24 hr 05/05/24 05/05/24 10:55 11:04 Temperature 36.7 C Heart Rate 109 H 105 H Respiratory 16 28 H Rate Blood Pressure 183/65 H 138/52 H O2 Saturation 98 95 Oxygen O2 Source Room air - Labs Labs: Laboratory Tests 05/05/24 05/05/24 05/05/24 11:23 11:23 11:23 WBC 12.2 H RBC 5.01 Hgb 14.4 Hct 41.8 L MCV 83.4 MCH 28.7 MCHC 34.4 RDW 14.9 Plt Count 98 L MPV 11.4 Sodium 133 L Potassium 4.6 H Chloride 101 Carbon Dioxide 22 Anion Gap 10.0 BUN 58 H Creatinine 1.0 Estimated GFR (MDRD) 72 L Glucose 80 Lactic Acid < 0.2 L Calcium 8.3 L Total Bilirubin 3.3 H AST 42 ALT 38 Alkaline Phosphatase 361 H Total Protein 6.1 L Albumin 2.9 L Globulin 3.2 Albumin/Globulin Ratio 0.9 L PD Medical Decision Making - ED course ED course: This is a 78-year-old gentleman with BPH who self caths with stable MS who I saw yesterday for a variety of complaints but he did have a positive urinalysis and a small potentially obstructing stone on the right. Today he returns weaker with shaking chills and is tachypneic and tachycardic and appears ill. Repeat blood work was done with white count about the same, he has no abdominal tenderness. I discussed the case again with Dr. Arnett, her urologist by phone who recommends admission on IV antibiotics after blood cultures and plans for an intervention later in the day and spoke with the hospitalist at 11:57 AM. Departure - Departure Disposition: 66 [facility] DC/Xfer Clinical Impression: Kidney stone on right side, Pyelonephritis Condition: Serious Forms: PCP List
[2024-05-05 11:36] LABS: BASOPHILS % (AUTO) 0.6 %; EOSINOPHILS % (AUTO) 0.1 %; HCT - HEMATOCRIT 41.8 % (42.0-52.0); HGB - HEMOGLOBIN 14.4 g/dL (14.0-18.0); LYMPHOCYTES % (AUTO) 2.4 %; MEAN CORPUSCULAR HEMOGLOBIN 28.7 pg (27.0-31.0); MEAN CORPUSCULAR HGB CONC 34.4 g/dL (32.0-36.0); MEAN CORPUSCULAR VOLUME 83.4 fL (80.0-94.0); MEAN PLATELET VOLUME 11.4 fL (7.4-11.4); MONOCYTES % (AUTO) 0.6 %; NEUTROPHILS % (AUTO) 94.2 %; PLT - PLATELET COUNT 98 10^3/uL (130-450); RED BLOOD COUNT 5.01 10^6/uL (4.70-6.10); RED CELL DISTRIBUTION WIDTH 14.9 % (12.0-15.0); WHITE BLOOD COUNT 12.2 x10^3/uL (4.8-10.8)
[2024-05-05 11:40] LABS: ABNORMAL LYMPHS % (MANUAL) 0 %
[2024-05-05 11:47] LABS: ALBUMIN 2.9 g/dL (3.2-5.5); ALBUMIN/GLOBULIN RATIO 0.9 (1.0-2.2); BILIRUBIN,TOTAL 3.3 mg/dL (0.2-1.0); CALCIUM 8.3 mg/dL (8.5-10.3); POTASSIUM 4.6 mmol/L (3.5-4.5); TOTAL PROTEIN 6.1 g/dL (6.4-8.9)
[2024-05-05] MEDS: cefTRIAXone 1 GM VIAL IVP STA (12:00)
[2024-05-05] MEDS ORDERED: SODIUM CHLORIDE 0.9% 1,000 ML IV STA (12:05)
[2024-05-05 12:16] LABS: BAND NEUTROPHILS % (MANUAL) 22 %; DIFFERENTIAL COMMENT MANUAL DIFFERENTIAL; LYMPHOCYTES # (MANUAL) 0.7 10^3/uL (1.5-3.5); LYMPHOCYTES % (MANUAL) 2 %; NEUTROPHILS # (MANUAL) 11.5 10^3/uL (1.5-6.6); RBC MORPHOLOGY (MULTIPLE) 2+ ANISOCYTOSIS (NORMAL); REACTIVE LYMPHS % (MANUAL) 4 %
[2024-05-05] MEDS: SODIUM CHLORIDE 0.9% 1,000 ML IV STA (12:17)
--- NOTE | 2024-05-05 14:26 | CONSULTATION NOTE ---
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 He states he has had urological issues with longstanding kidney stones and did require interventions including ureteroscopy and stents in the past. He has not had any issues for several years. He does have BPH and urinary retention requiring clean intermittent catheterization which he performs himself. More recently he has had an acute deconditioning and worsening of symptoms. He states he is significantly fatigued along with worsening right-sided back pain over the last few weeks. He did have a fall a few weeks ago. He has also shoulder pain. He was diagnosed with COVID a few weeks ago and has had poor appetite since then as well. Family members and friends were worried about his deconditioning and sent him to the ER yesterday. This showed evidence of a mild leukocytosis along with concern for UTI. He did have a CT scan which showed a 2 cm left UPJ stone without any evidence of obstruction. He also had a 3 mm right UPJ stone with possible evidence of obstruction. His CT scan was reviewed by myself which showed an edematous right kidney with inflammation. The stone did not seem obstructing to my view. I recommended treating him with empiric antibiotics as he was otherwise hemodynamically stable and afebrile. He was sent home on ciprofloxacin. I called his daughter today to get him in to be seen on . However, since then he has worsened with shaking chills at home. For this reason he was sent to the ER. Here he was tachycardic and tachypneic. Though his blood pressure was elevated and strong. He is afebrile. The urine culture from yesterday grew out gram-negative rods. At the time my evaluation he feels much better after some IV fluids and a dose of Rocephin History - Past Medical History Cardiovascular: reports: None Respiratory: reports: None Neuro: reports: Multiple sclerosis GI: reports: None : reports: Retention, Kidney stones HEENT: reports: None Psych: reports: None Musculoskeletal: reports: Osteoporosis, Chronic back pain Derm: reports: None MRSA Hx?: No - Past Surgical History General: reports: Colonoscopy Ortho: reports: Spine surgery Meds/Allgy - Home Medications Home Medications: Ambulatory Orders Medication Instructions Recorded Confirmed Levothyroxine Sodium [Synthroid] 112 mcg PO DAILY 10/12/16 05/05/24 Ciprofloxacin HCl [Cipro] 500 mg PO BID #20 tablet 05/04/24 05/05/24 Tamsulosin [Flomax] 0.8 mg PO DAILY 05/05/24 05/05/24 methocarbamoL [Methocarbamol] 750 mg PO TID PRN 05/05/24 05/05/24 - Allergies Allergies/Adverse Reactions: Allergies Allergy/AdvReac Type Severity Reaction Status Date / Time No Known Drug Allergies Allergy Verified 05/05/24 10:55 Exam - Vital Signs Vital Signs: Vital Signs x48h Temp Pulse Resp BP Pulse Ox 05/05/24 12:38 104 H 20 113/60 94 05/05/24 11:04 105 H 28 H 138/52 H 95 05/05/24 10:55 36.7 C 109 H 16 183/65 H 98 - Physical Exam General Appearance: positive: No acute distress Respiratory: positive: No respiratory distress Cardiovascular: positive: Tachycardia Conclusion and Plan - Lab Results Laboratory Results 05/05/24 11:23: Lactic Acid < 0.2 L 05/05/24 11:23: Sodium 133 L, Potassium 4.6 H, Chloride 101, Carbon Dioxide 22, Anion Gap 10.0, BUN 58 H, Creatinine 1.0, Estimated GFR (MDRD) 72 L, Glucose 80, Calcium 8.3 L, Total Bilirubin 3.3 H, AST 42, ALT 38, Alkaline Phosphatase 361 H, Total Protein 6.1 L, Albumin 2.9 L, Globulin 3.2, Albumin/Globulin Ratio 0.9 L 05/05/24 11:23: WBC 12.2 H, RBC 5.01, Hgb 14.4, Hct 41.8 L, MCV 83.4, MCH 28.7, MCHC 34.4, RDW 14.9, Plt Count 98 L, MPV 11.4, Neut # (Auto) Not Reportable, Lymph # (Auto) Not Reportable, Yates # (Auto) Not Reportable, Eos # (Auto) Not Reportable, Baso # (Auto) Not Reportable, Absolute Nucleated RBC Not Reportable, Total Counted 100, Band Neuts % (Manual) 22 H, Reactive Lymphs % (Man) 4, Abnorm Lymph % (Manual) 0, Nucleated RBC % Not Reportable, Neutrophils # (Manual) 11.5 H, Lymphocytes # (Manual) 0.7 L, Monocytes # (Manual) 0.0, Eosinophils # (Manual) 0.0, Basophils # (Manual) 0.0, Differential Comment MANUAL DIFFERENTIAL, RBC Morph Micro Appear 2+ ANISOCYTOSIS - Diagnostic Imaging Results Diagnostic Imaging Results: positive: Read independently - Diagnosis Diagnosis: UTI, right UPJ stone - Consultation Note Consultation Note: 78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 Has nonobstructing left-sided renal stone as well - Plan Plan: We discussed with his daughter his current medical concerns. I am not fully convinced that he has an obstructive process going on, that being said, he is not improving with empiric antibiotics. I think he should be admitted for further monitoring and management. Blood cultures have been sent. Switching to Rocephin is a good empiric antibiotic management. I will take him to the OR today for cystoscopy, right ureteral stent placement to remove that obstructive picture is a major concern. Specific risks of infection, bleeding, injury to adjacent structures, need for additional procedures were discussed. We also discussed that we may not be able to get the stent in place given his large prostate and possibly J-hook and ureter. At that point we would have a serious question of whether or not we should send him for nephrostomy tube placement. As we do not have access for that here The patient states understanding and consents to the above plan. He has been marked and consented. He last ate some toast at 9:30 AM so we will aim for 4:30 PM He will be admitted to medicine. I will leave a catheter after the procedure.
--- NOTE | 2024-05-05 14:36 | ANESTHESIA ---
Pre-Anesthesia VS, & Labs - Diagnosis Diagnosis UTI, right UPJ stone - Procedure R ureteral stent, cystoscopy Vital Signs: Temp Pulse Resp BP Pulse Ox O2 Flow Rate 36.7 C 104 H 20 113/60 94 05/05/24 10:55 05/05/24 12:38 05/05/24 12:38 05/05/24 12:38 05/05/24 12:38 Height: 5 ft 6 in Weight (kg): 77.5 kg Body Mass Index: 27.6 BMI Classification: Overweight - NPO >8 hours - Lab Results Current Lab Results: Laboratory Tests 05/05/24 11:23: Lactic Acid < 0.2 L 05/05/24 11:23: Sodium 133 L, Potassium 4.6 H, Chloride 101, Carbon Dioxide 22, Anion Gap 10.0, BUN 58 H, Creatinine 1.0, Estimated GFR (MDRD) 72 L, Glucose 80, Calcium 8.3 L, Total Bilirubin 3.3 H, AST 42, ALT 38, Alkaline Phosphatase 361 H , Total Protein 6.1 L, Albumin 2.9 L, Globulin 3.2, Albumin/Globulin Ratio 0.9 L 05/05/24 11:23: WBC 12.2 H, RBC 5.01, Hgb 14.4, Hct 41.8 L, MCV 83.4, MCH 28.7, MCHC 34.4, RDW 14.9, Plt Count 98 L, MPV 11.4, Neut # (Auto) Not Reportable, Lymph # (Auto) Not Reportable, Brooke # (Auto) Not Reportable, Eos # (Auto) Not Reportable, Baso # (Auto) Not Reportable, Absolute Nucleated RBC Not Reportable, Total Counted 100, Band Neuts % (Manual) 22 H, Reactive Lymphs % (Man) 4, Abnorm Lymph % (Manual) 0, Nucleated RBC % Not Reportable, Neutrophils # (Manual) 11.5 H, Lymphocytes # (Manual) 0.7 L, Monocytes # (Manual) 0.0, Eosinophils # (Manual) 0.0, Basophils # (Manual) 0.0, Differential Comment MANUAL DIFFERE NTIAL, RBC Morph Micro Appear 2+ ANISOCYTOSIS Lab results reviewed: Yes Fish Bones: 05/05/24 11:23 05/05/24 11:23 Home Medications and Allergies Home Medications: Ambulatory Orders Tamsulosin [Flomax] 0.8 mg PO DAILY 05/05/24 methocarbamoL [Methocarbamol] 750 mg PO TID PRN 05/05/24 Levothyroxine Sodium [Synthroid] 112 mcg PO DAILY 10/12/16 Tamsulosin [Flomax] 0.8 mg PO DAILY 05/05/24 methocarbamoL [Methocarbamol] 750 mg PO TID PRN 05/05/24 Allergies/Adverse Reactions: Allergies Allergy/AdvReac Type Severity Reaction Status Date / Time No Known Drug Allergies Allergy Verified 05/05/24 10:55 Anes History & Medical History - Anesthetic History Anesthesia Complications: reports: No previous complications Family history of Anesthesia Complications: Denies Family history of Malignant Hyperthermia: Denies - Medical History Cardiovascular: reports: None Pulmonary: reports: None Gastrointestinal: reports: None Urinary: reports: Benign prostate hypertrophy, Retention, Kidney stones Neuro: reports: Multiple sclerosis (chronic stable) Musculoskeletal: reports: Osteoporosis, Chronic back pain Endocrine/Autoimmune: reports: HyPOthyroidism Skin: reports: None Smoking Status: Never smoker History of Cancer?: No - Surgical History General: reports: Colonoscopy Urologic: reports: Kidney stents, Ureterolithotomy (stones) Orthopedic: reports: Spine surgery Exam General: Alert, Oriented x3, Cooperative Dental: WNL Mouth Openin Fingerbreadth Neck Mobility: Normal (cervical fusion) Mallampati classification: II Respiratory: Lungs clear, Normal breath sounds, No respiratory distress Cardiovascular: Regular rate Neurological: Normal speech Mental/Cognitive Status: Alert/Oriented X3, Normal for patient Cognitive Status: Within normal limits Plan Anesthesia Type: General Consent for Procedure(s) Verified and Reviewed: Yes Code Status: Attempt Resuscitation ASA classification: 3-Severe systemic disease Is this case an emergency?: Yes
--- NOTE | 2024-05-05 14:48 | HISTORY & PHYSICAL EXAMINATION ---
Chief Complaint - Chief Complaint Chief Complaint: Shaking chills for 1 day, and few weeks of low back pain. History of Present Illness - Admitted From Admitted From:: ED - History Obtained From Records Reviewed: Old chart History obtained from: Patient and ER staff - History of Present Illness HPI Comment/Other: This is a 78-year-old male with past medical history of multiple sclerosis and chronic back pain on muscle relaxant hypothyroidism on Synthroid and BPH who has urinary retention requiring clean intermittent cauterization by himself and recent COVID few weeks ago with poor appetite presents to ED after being discharged yesterday with diagnosis of UTI and nephrolithiasis on ciprofloxacin. Patient with chronic history of back pain and right shoulder pain arthritic in nature with recent worsening of back pain was recently yesterday evaluated in ER with the above findings of UTI and kidney stones evaluated by urologist sent home presents back with shaking chills and low-grade fever of 100.4. Patient at this time denies any headache eye pain ear pain nausea vomiting chest pain shortness of breath denies any diarrhea constipation GI bleed admits to chronic bleed secondary to self cauterization. Denies any weakness or sensory changes. Patient while in ER yesterday had a CT scan that showed bilateral upj stone 2 cm on the left and 3 mm on the right with right kidney showing to be edematous with inflammation and possible obstruction. Recent urine culture has grown gram-negative rods. History - Past Medical History Cardiovascular: reports: None Respiratory: reports: None Neuro: reports: Multiple sclerosis (chronic stable) Endocrine/Autoimmune: reports: HyPOthyroidism GI: reports: None : reports: Benign prostate hypertrophy, Retention, Kidney stones HEENT: reports: None Psych: reports: None Musculoskeletal: reports: Osteoporosis, Chronic back pain Derm: reports: None MRSA Hx?: No - Past Surgical History General: reports: Colonoscopy Ortho: reports: Spine surgery Meds/Allgy - Home Medications Home Medications: Ambulatory Orders Medication Instructions Recorded Confirmed Levothyroxine Sodium [Synthroid] 112 mcg PO DAILY 10/12/16 05/05/24 Ciprofloxacin HCl [Cipro] 500 mg PO BID #20 tablet 05/04/24 05/05/24 Tamsulosin [Flomax] 0.8 mg PO DAILY 05/05/24 05/05/24 methocarbamoL [Methocarbamol] 750 mg PO TID PRN 05/05/24 05/05/24 - Allergies Allergies/Adverse Reactions: Allergies Allergy/AdvReac Type Severity Reaction Status Date / Time No Known Drug Allergies Allergy Verified 05/05/24 10:55 Review of Systems - Constitutional Constitutional: reports: Fatigue, Chills, Malaise, Weakness, Poor appetite - Eyes Eyes: denies: Pain - Ears, Nose & Throat Ears, Nose & Throat: denies: Ear pain - Cardiovascular Cariovascular: denies: Chest pain - Respiratory Respiratory: denies: SOB at rest - Gastrointestinal Gastrointestinal: reports: Poor appetite. denies: Abdominal pain, Constipation, Diarrhea, Nausea, Vomiting - Genitourinary Genitourinary: reports: Hematuria, Incontinence, Flank pain - Musculoskeletal Musculoskeletal: reports: Back pain - Neurological Neurological: reports: General weakness Prior Level of Functionality: Patient ambulatory Exam - Vital Signs Vital Signs: Vital Signs x48h Temp Pulse Resp BP Pulse Ox 05/05/24 12:38 104 H 20 113/60 94 05/05/24 11:04 105 H 28 H 138/52 H 95 05/05/24 10:55 36.7 C 109 H 16 183/65 H 98 - Physical Exam General Appearance: positive: No acute distress, Alert Eyes Bilateral: positive: PERRL, EOMI ENT: positive: Dry mucous membranes Neck: positive: Trachea midline Respiratory: positive: No respiratory distress, Breath sounds nml Cardiovascular: positive: Regular rate & rhythm, No murmur Abdomen: positive: Non-tender, Nml bowel sounds, No distention. negative: Tenderness, Guarding, Rebound Back: negative: CVA tenderness (R), CVA tenderness (L) Skin: positive: Warm Extremities: positive: Nml appearance, No pedal edema Neurologic/Psychiatric: positive: Oriented x3, Motor nml Sepsis Event Note (H) - Evaluation Current Stage of Sepsis: Sepsis Possible source of Sepsis: positive: Genitourinary - Sepsis Criteria Sepsis Criteria: Recorded Heart Rate greater than 90 bpm, Recorded Respiratory Rate greater than 20, WBC count greater than 12,000 or less than 4000, Hematologic: platelets < 100,000; INR > 1.5, or a PTT>60 seconds Conclusion/Plan - Problem List (1) Sepsis Conclusion/Plan: IV ceftriaxone Obtain blood cultures Follow-up urine culture Urine culture positive for gram negative rods Aggressive IV hydration Inflammatory markers Recent CT showing nephrolithiasis with right kidney swelling and inflammation, no abscess mentioned. (2) UTI (urinary tract infection) Conclusion/Plan: Urine culture positive for gram-negative rods will follow-up on culture ID and sensitivity Continue ceftriaxone 1 g IV twice daily Follow-up with inflammatory markers (3) Nephrolithiasis Conclusion/Plan: Urology consulted Keep n.p.o. per urology for possible cystoscopy with stent placement If unable to stent nephrostomy tube at higher level of care will be considered History of cystoscopy with stent placement secondary to nephrolithiasis in the past Will continue IV hydration, monitor creatinine (4) Hypothyroidism Conclusion/Plan: Obtain TSH Continue home dose Synthroid (5) Multiple sclerosis Conclusion/Plan: History of immunomodulatory meds in the past Continue muscle relaxant currently Continue pain management Once stable PT OT (6) BPH (benign prostatic hyperplasia) Conclusion/Plan: Continue home dose tamsulosin Most likely Boateng by urology after procedure For the moment clean intermittent catheterization (7) Azotemia Conclusion/Plan: Will continue with NS hydration Hyponatremia likely secondary to hypotonic hyponatremia secondary to decreased p.o. intake Hyperkalemia likely related to dehydration will continue with IV hydration and follow-up on potassium level in the morning With elevated BUN secondary to dehydration will continue NS hydration monitor BUN and creatinine in a.m. - Lab Results Lab results reviewed: Yes Ilya Bones: 05/05/24 11:23 05/05/24 11:23 Core Measures - Anticipated LOS I expect patient to be DC'd or transferred within 96 hours.: Yes - DVT/VTE - Prophylaxis VTE/DVT Device ordered at admit?: Yes VTE/DVT Prophylaxis med ordered at admit?: No Not Ordered - Medical Reason: Contraindicated
[2024-05-05] MEDS ORDERED: SODIUM CHLORIDE FLUSH 0.9% 10 ML SYRINGE IVP PRN (15:15)
[2024-05-05] MEDS ORDERED: ONDANSETRON 4 MG/2 ML VIAL IVP PRN ×2 (15:22→17:07)
[2024-05-05] MEDS ORDERED: ACETAMINOPHEN 325 MG TABLET PO PRN (15:22)
[2024-05-05] MEDS ORDERED: hydrALAZINE INJ 20 MG/ML VIAL IVP PRN (15:40)
[2024-05-05] MEDS ORDERED: iohexoL-240 10 ML VIAL IVP ONE (16:06)
[2024-05-05] MEDS ORDERED: LIDOCAINE 2% URO-JET 5 ML SYRINGE UR ONE (16:06)
[2024-05-05] MEDS ORDERED: PROPOFOL 200 MG/20 ML VIAL IVP ONE (16:12)
[2024-05-05] MEDS ORDERED: LIDOCAINE-PF 2% 10 ML AMP SUBQ ONE (16:12)
[2024-05-05] MEDS ORDERED: fentaNYL 100 MCG/2 ML VIAL ONE (16:12)
[2024-05-05] MEDS: LIDOCAINE 2% URO-JET 5 ML SYRINGE UR ONE (16:26)
[2024-05-05] MEDS ORDERED: ePHEDrine 50 MG/ML VIAL IVP ONE (16:31)
[2024-05-05] MEDS: iohexoL-240 10 ML VIAL IVP ONE (16:38)
[2024-05-05] MEDS: LACTATED RINGERS 400 ML IV ONE (16:50)
--- NOTE | 2024-05-05 16:53 | OPERATIVE REPORT ---
Operative Report - General Admit Date: 05/05/24 Procedure Date: 05/05/24 Planned Procedure: Cystoscopy, right ureteral stent Pre-Op Diagnosis: Right UPJ stone and UTI Procedure Performed: Cystoscopy, right retrograde pyelogram, right ureteral stent Post Op Diagnosis: Right UPJ stone and UTI - Procedure Note Primary Surgeon: Melquiades Anesthesia Provider: CATRACHITO Medrano Anesthesia Technique: General LMA Pathology: none Estimated Blood Loss (mL): 0 Findings: Diffusely erythematous bladder Trilobar hypertrophy of prostate No hydronephrosis seen Complications: none - Other Other Information/Narrative: After informed consent was obtained the patient was brought to the OR and laid in the supine position. The patient was anesthetized per anesthesia protocols and prepped draped in usual sterile fashion in the dorsolithotomy position. A formal timeout was performed reconfirming the patient, procedure and laterality. A 22 Beninese cystoscope was advanced easily into urinary bladder. He was noted to have trilobar hypertrophy with a moderate median lobe. He had 2+ trabeculations of his bladder. His right ureteral orifice was on the trigone at the expected location. A sensor wire was able to cannulate this without issue. This was able to easily traverse up into the kidney under fluoroscopic guidance. A 5 Beninese ureteral catheter was placed over this. The sensor wire was removed and there was no evidence of a hydronephrotic drip. A gentle retrograde pyelogram was performed which showed no hydronephrosis, but we were clearly in the upper pole. The sensor wire was replaced and a 6 Beninese 24 cm stent was placed with good curling noted in the kidney and good curling noted in the bladder. A Uro-Jet was placed and a 20 Beninese two-way Boateng catheter was placed into the bladder. This concluded the procedure and the patient tolerated procedure well. He was brought to PACU without further incident. He will be admitted to the medical service for further evaluation and monitoring of his fatigue and likely urinary tract infection. Definitive stone management will be performed as an outpatient
[2024-05-05] MEDS ORDERED: MORPHINE 2 MG/ML CARPUJECT IVP PRN (17:07)
[2024-05-05] MEDS ORDERED: ATROPINE ABBOJECT 1 MG/10 ML SYRINGE IVP PRN (17:07)
[2024-05-05] MEDS ORDERED: ePHEDrine 50 MG/ML VIAL IVP PRN (17:07)
[2024-05-05] MEDS ORDERED: METOCLOPRAMIDE 10 MG/2 ML VIAL IVP PRN (17:07)
[2024-05-05] MEDS ORDERED: NALOXONE 0.4 MG/ML VIAL IVP PRN (17:07)
[2024-05-05] MEDS ORDERED: HYDROmorphone 0.5 MG/0.5 ML SYRINGE IVP PRN (17:07)
[2024-05-05] MEDS ORDERED: fentaNYL 100 MCG/2 ML VIAL IVP PRN (17:07)
--- NOTE | 2024-05-05 17:28 | ANESTHESIA POST OP EVALUATION ---
Anesthesia Post Eval - Post Anesthesia Eval Vitals: Last Vital Signs Temp 36.8 C 05/05/24 17:15 Pulse 96 05/05/24 17:15 Resp 16 05/05/24 17:15 BP 108/65 05/05/24 17:15 Pulse Ox 95 05/05/24 17:15 O2 Flow Rate CV Function Including HR & BP: Stable Pain Control: Satisfactory Nausea & Vomiting: Negative Mental Status: Baseline Respiratory Status: Airway Patent Hydration Status: Satisfactory Anesthesia Complications: None
[2024-05-05] MEDS: SODIUM CHLORIDE 0.9% 1,000 ML IV SCH (17:37)
[2024-05-05] MEDS: SODIUM CHLORIDE FLUSH 0.9% 10 ML SYRINGE IVP SCH (17:37)
[2024-05-05] MEDS ORDERED: LACTATED RINGERS 1,000 ML IV SCH (18:00)
[2024-05-05] MEDS: cefTRIAXone 1 GM in SODIUM CHLORIDE 0.9% MINIBAG 100 ML IV SCH (20:10)
[2024-05-05] MEDS ORDERED: cefTRIAXone 1 GM VIAL IVP SCH (21:00)
[2024-05-06 06:04] LABS: BASOPHILS % (AUTO) 0.2 %; EOSINOPHILS # (AUTO) 0.1 10^3/uL (0.0-0.7); EOSINOPHILS % (AUTO) 0.4 %; HCT - HEMATOCRIT 34.6 % (42.0-52.0); HGB - HEMOGLOBIN 12.1 g/dL (14.0-18.0); LYMPHOCYTES # (AUTO) 0.8 10^3/uL (1.5-3.5); LYMPHOCYTES % (AUTO) 6.1 %; MEAN CORPUSCULAR HEMOGLOBIN 29.3 pg (27.0-31.0); MEAN CORPUSCULAR VOLUME 83.8 fL (80.0-94.0); MEAN PLATELET VOLUME 11.6 fL (7.4-11.4); MONOCYTES % (AUTO) 7.8 %; NEUTROPHILS % (AUTO) 84.1 %; PLT - PLATELET COUNT 124 10^3/uL (130-450); RED BLOOD COUNT 4.13 10^6/uL (4.70-6.10); RED CELL DISTRIBUTION WIDTH 15.4 % (12.0-15.0)
[2024-05-06 06:24] LABS: CALCIUM 7.6 mg/dL (8.5-10.3); CREATININE 0.8 mg/dL (0.6-1.3)
[2024-05-06] MEDS: TAMSULOSIN 0.4 MG CAPSULE PO SCH (08:31)
[2024-05-06] MEDS: PANTOPRAZOLE 40 MG VIAL IVP SCH (08:33)
[2024-05-06] MEDS: LEVOTHYROXINE 112 MCG TABLET PO SCH (08:33)
[2024-05-06] MEDS: methocarbamoL 500 MG TABLET PO PRN (10:00)
--- NOTE | 2024-05-06 10:07 | PROVIDER PROGRESS NOTE ---
Subjective - General Admit Date: 05/05/24 Procedure Date: 05/05/24 Post Op Days: 1 Procedure Performed: Cystoscopy, right ureteral stent, right retrograde pyelogram - Review of Systems Drain Type: camacho Drain Output Description: CYU General: positive: Other (Patient sleeping comfortably at bedside this morning) Objective - Patient Data Reviewed Vital Signs: Yes Vital Signs: Vital Signs x48h Temp Pulse Resp BP Pulse Ox 05/06/24 09:00 36.7 C 82 18 117/69 95 05/06/24 05:29 36.6 C 82 16 123/68 95 Weight: Weight 05/04/24 05/05/24 05/06/24 23:59 23:59 23:59 Weight (kg) 77.5 kg Intake & Output: Intake and Output Totals x24h 05/04/24 05/05/24 05/06/24 23:59 23:59 23:59 Intake Total 1100 2300 Output Total 225 800 Balance 875 1500 - Lab Results Lab Results: 05/06/24 05:24 05/06/24 05:24 Other Lab Results: Lab Results x24hrs 05/06/24 05/06/24 05/06/24 Range/Units 05:24 05:24 05:24 WBC (4.8-10.8) x10^3/uL RBC (4.70-6.10) 10^6/uL Hgb (14.0-18.0) g/dL Hct (42.0-52.0) % MCV (80.0-94.0) fL MCH (27.0-31.0) pg MCHC (32.0-36.0) g/dL RDW (12.0-15.0) % Plt Count (130-450) 10^3/uL MPV (7.4-11.4) fL Neut # (Auto) Lymph # (Auto) Power # (Auto) Eos # (Auto) Baso # (Auto) Absolute Nucleated RBC Total Counted Band Neuts % (Manual) (0 - 10) % Reactive Lymphs % (Man) % Abnorm Lymph % (Manual) % Nucleated RBC % Neutrophils # (Manual) (1.5-6.6) 10^3/uL Lymphocytes # (Manual) (1.5-3.5) 10^3/uL Monocytes # (Manual) (0.0-1.0) 10^3/uL Eosinophils # (Manual) (0-0.7) 10^3/uL Basophils # (Manual) (0-0.1) 10^3/uL Differential Comment RBC Morph Micro Appear (NORMAL) ESR 63 H (0-20) mm/Hr Sodium 136 (135-145) mmol/L Potassium 4.0 (3.5-4.5) mmol/L Chloride 107 (101-111) mmol/L Carbon Dioxide 21 (21-32) mmol/L Anion Gap 8.0 (6-13) BUN 47 H (6-20) mg/dL Creatinine 0.8 (0.6-1.3) mg/dL Estimated GFR (MDRD) 93 (>89) Glucose 89 (74-104) mg/dL Lactic Acid (0.5-2.2) mmol/L Calcium 7.6 L (8.5-10.3) mg/dL Total Bilirubin (0.2-1.0) mg/dL AST (10-42) IU/L ALT (10-60) IU/L Alkaline Phosphatase (42-121) IU/L Total Protein (6.4-8.9) g/dL Albumin (3.2-5.5) g/dL Globulin (2.1-4.2) g/dL Albumin/Globulin Ratio (1.0-2.2) Procalcitonin Immunoas 16.49 H* (<0.5) ng/mL 05/06/24 05/05/24 05/05/24 Range/Units 05:24 11:23 11:23 WBC 13.0 H (4.8-10.8) x10^3/uL RBC 4.13 L (4.70-6.10) 10^6/uL Hgb 12.1 L (14.0-18.0) g/dL Hct 34.6 L (42.0-52.0) % MCV 83.8 (80.0-94.0) fL MCH 29.3 (27.0-31.0) pg MCHC 35.0 (32.0-36.0) g/dL RDW 15.4 H (12.0-15.0) % Plt Count 124 L (130-450) 10^3/uL MPV 11.6 H (7.4-11.4) fL Neut # (Auto) 11.0 H Lymph # (Auto) 0.8 L Power # (Auto) 1.0 Eos # (Auto) 0.1 Baso # (Auto) 0.0 Absolute Nucleated RBC 0.00 Total Counted Band Neuts % (Manual) (0 - 10) % Reactive Lymphs % (Man) % Abnorm Lymph % (Manual) % Nucleated RBC % 0.0 Neutrophils # (Manual) (1.5-6.6) 10^3/uL Lymphocytes # (Manual) (1.5-3.5) 10^3/uL Monocytes # (Manual) (0.0-1.0) 10^3/uL Eosinophils # (Manual) (0-0.7) 10^3/uL Basophils # (Manual) (0-0.1) 10^3/uL Differential Comment RBC Morph Micro Appear (NORMAL) ESR (0-20) mm/Hr Sodium 133 L (135-145) mmol/L Potassium 4.6 H (3.5-4.5) mmol/L Chloride 101 (101-111) mmol/L Carbon Dioxide 22 (21-32) mmol/L Anion Gap 10.0 (6-13) BUN 58 H (6-20) mg/dL Creatinine 1.0 (0.6-1.3) mg/dL Estimated GFR (MDRD) 72 L (>89) Glucose 80 (74-104) mg/dL Lactic Acid < 0.2 L (0.5-2.2) mmol/L Calcium 8.3 L (8.5-10.3) mg/dL Total Bilirubin 3.3 H (0.2-1.0) mg/dL AST 42 (10-42) IU/L ALT 38 (10-60) IU/L Alkaline Phosphatase 361 H (42-121) IU/L Total Protein 6.1 L (6.4-8.9) g/dL Albumin 2.9 L (3.2-5.5) g/dL Globulin 3.2 (2.1-4.2) g/dL Albumin/Globulin Ratio 0.9 L (1.0-2.2) Procalcitonin Immunoas (<0.5) ng/mL 05/05/24 Range/Units 11:23 WBC 12.2 H (4.8-10.8) x10^3/uL RBC 5.01 (4.70-6.10) 10^6/uL Hgb 14.4 (14.0-18.0) g/dL Hct 41.8 L (42.0-52.0) % MCV 83.4 (80.0-94.0) fL MCH 28.7 (27.0-31.0) pg MCHC 34.4 (32.0-36.0) g/dL RDW 14.9 (12.0-15.0) % Plt Count 98 L (130-450) 10^3/uL MPV 11.4 (7.4-11.4) fL Neut # (Auto) Not Reportable Lymph # (Auto) Not Reportable Power # (Auto) Not Reportable Eos # (Auto) Not Reportable Baso # (Auto) Not Reportable Absolute Nucleated RBC Not Reportable Total Counted 100 Band Neuts % (Manual) 22 H (0 - 10) % Reactive Lymphs % (Man) 4 % Abnorm Lymph % (Manual) 0 % Nucleated RBC % Not Reportable Neutrophils # (Manual) 11.5 H (1.5-6.6) 10^3/uL Lymphocytes # (Manual) 0.7 L (1.5-3.5) 10^3/uL Monocytes # (Manual) 0.0 (0.0-1.0) 10^3/uL Eosinophils # (Manual) 0.0 (0-0.7) 10^3/uL Basophils # (Manual) 0.0 (0-0.1) 10^3/uL Differential Comment MANUAL DIFFERENTIAL RBC Morph Micro Appear 2+ ANISOCYTOSIS (NORMAL) ESR (0-20) mm/Hr Sodium (135-145) mmol/L Potassium (3.5-4.5) mmol/L Chloride (101-111) mmol/L Carbon Dioxide (21-32) mmol/L Anion Gap (6-13) BUN (6-20) mg/dL Creatinine (0.6-1.3) mg/dL Estimated GFR (MDRD) (>89) Glucose (74-104) mg/dL Lactic Acid (0.5-2.2) mmol/L Calcium (8.5-10.3) mg/dL Total Bilirubin (0.2-1.0) mg/dL AST (10-42) IU/L ALT (10-60) IU/L Alkaline Phosphatase (42-121) IU/L Total Protein (6.4-8.9) g/dL Albumin (3.2-5.5) g/dL Globulin (2.1-4.2) g/dL Albumin/Globulin Ratio (1.0-2.2) Procalcitonin Immunoas (<0.5) ng/mL - Current Medications Current Medications: Current Medications Generic Name Dose Route Start Last Admin Trade Name Freq PRN Reason Stop Dose Admin Sodium Chloride 1,000 mls @ 100 mls/hr 05/05/24 16:00 05/06/24 09:54 Normal Saline 0.9% IV Infused .Q10H MINA Infusion Ceftriaxone Sodium 1 gm/ 100 mls @ 200 mls/hr 05/05/24 21:00 05/06/24 08:33 Sodium Chloride IV 200 mls/hr BID MINA Administration Levothyroxine Sodium 112 mcg 05/06/24 09:00 05/06/24 08:33 Levothyroxine 112 Mcg Tablet PO 112 mcg DAILY MINA Administration Methocarbamol 750 mg 05/05/24 15:40 05/06/24 10:00 Methocarbamol 500 Mg Tablet PO 750 mg TID PRN Administration Spasms Pantoprazole Sodium 40 mg 05/06/24 09:00 05/06/24 08:33 Pantoprazole 40 Mg Vial IVP 40 mg DAILY MINA Administration Sodium Chloride 10 ml 05/05/24 17:00 05/06/24 08:35 Sodium Chloride Flush 0.9% 10 Ml Syringe IVP 10 ml 0100,0900,1700 MINA Administration Tamsulosin HCl 0.8 mg 05/06/24 09:00 05/06/24 08:31 Tamsulosin 0.4 Mg Capsule PO 0.8 mg DAILY MINA Administration - Physical Exam General Appearance: positive: No acute distress Abdomen: positive: Other (Camacho in place with clear yellow urine) Comments/Other: Vitals improved with improvement in tachycardia and normotensive overnight. Urine output normal. Urine culture growing out Klebsiella oxytoca greater than 100,000 CFU's which was sensitive to all antibiotics except for ampicillin. He has been appropriately on ceftriaxone. His blood cultures also have grown out Klebsiella in the PCR and there are gram-negative rods growing. ABX Reporting Has patient been on IV antibiotics over the past 48 hours?: Yes Impression/Plan - Problem List Problem List: 78-year-old male with multiple sclerosis, neurogenic bladder who intermittently catheterizes, bilateral renal stones with question of obstruction of a right- sided small UPJ stone. Admitted for UTI and pyelonephritis and is now confirmed bacteremia with gram-negative cheng Klebsiella. Had cystoscopy and right ureteral stent placed on May 05. Seems to be improving with antibiotics and IV fluids Camacho catheter working well. I recommend 14 days of culture confirmed antibiotic coverage. I think he should go home with a Camacho catheter in place. Given this serious issue I think that he should likely consider chronic catheter in the future. Ultimate timing of discharge will be deferred to medical team but likely in the next few days. I will have him follow-up with me in the coming weeks to discuss further options for his kidney stones
[2024-05-06] MEDS ORDERED: LEVOTHYROXINE 112 MCG TABLET PO SCH (10:40)
--- NOTE | 2024-05-06 11:22 | PROVIDER PROGRESS NOTE ---
Subjective - Prog Note Date Prog Note Date: 05/06/24 Prog Note Time: 11:19 - Subjective Subjective: Patient awake feels better hungry complains of chronic right shoulder pain and chronic low back pain Current Medications - Current Medications Current Medications: Active Medications Acetaminophen (Acetaminophen 325 Mg Tablet) 650 mg PO Q4HR PRN PRN Reason: Pain 1 to 4, or Fever Hydralazine HCl (Hydralazine Inj 20 Mg/Ml Vial) 10 mg IVP Q6H PRN PRN Reason: Blood Pressure Sodium Chloride (Normal Saline 0.9%) 1,000 mls @ 100 mls/hr IV .Q10H [facility] Last Infusion: 05/06/24 09:54 Dose: Infused Ceftriaxone Sodium 1 gm/ (Sodium Chloride) 100 mls @ 200 mls/hr IV BID [facility] Last Admin: 05/06/24 08:33 Dose: 200 mls/hr Levothyroxine Sodium (Levothyroxine 112 Mcg Tablet) 112 mcg PO QDAC [facility] Methocarbamol (Methocarbamol 500 Mg Tablet) 750 mg PO TID PRN PRN Reason: Spasms Last Admin: 05/06/24 10:00 Dose: 750 mg Morphine Sulfate (Morphine 2 Mg/Ml Carpuject) 2 mg IVP Q2HR PRN PRN Reason: Pain 8 to 10 Ondansetron HCl (Ondansetron 4 Mg/2 Ml Vial) 4 mg IVP Q6HR PRN PRN Reason: Nausea / Vomiting Pantoprazole Sodium (Pantoprazole 40 Mg Tablet) 40 mg PO QDAC [facility] Sodium Chloride (Sodium Chloride Flush 0.9% 10 Ml Syringe) 10 ml IVP PRN PRN PRN Reason: NEEDED PER PROVIDER ORDERS Sodium Chloride (Sodium Chloride Flush 0.9% 10 Ml Syringe) 10 ml IVP 0100,0900,1700 [facility] Last Admin: 05/06/24 08:35 Dose: 10 ml Tamsulosin HCl (Tamsulosin 0.4 Mg Capsule) 0.8 mg PO DAILY [facility] Last Admin: 05/06/24 08:31 Dose: 0.8 mg Levothyroxine Sodium [Synthroid] 112 mcg PO DAILY 10/12/16 Tamsulosin [Flomax] 0.8 mg PO DAILY 05/05/24 methocarbamoL [Methocarbamol] 750 mg PO TID PRN 05/05/24 Objective - Vital Signs/Intake & Output Vital Signs: Vital Signs x48h Temp Pulse Resp BP Pulse Ox 05/06/24 09:00 36.7 C 82 18 117/69 95 05/06/24 05:29 36.6 C 82 16 123/68 95 Intake & Output: Intake & Output 05/03/24 05/04/24 05/05/24 05/06/24 23:59 23:59 23:59 23:59 Intake Total 1100 2300 Output Total 225 800 Balance 875 1500 - Objective General Appearance: positive: No acute distress Eyes Bilateral: positive: EOMI ENT: positive: Dry mucous membranes Neck: positive: Trachea midline Respiratory: positive: No respiratory distress, Breath sounds nml Cardiovascular: positive: Regular rate & rhythm, No murmur Abdomen: positive: Non-tender, Nml bowel sounds, No distention. negative: Guarding Skin: positive: Warm Extremities: positive: No pedal edema Neurologic/Psychiatric: positive: Oriented x3, Motor nml - Lab Results Fish Bones: 05/06/24 05:24 05/06/24 05:24 Other Labs: Lab Results x24hrs 05/06/24 05/06/24 05/06/24 Range/Units 05:24 05:24 05:24 WBC (4.8-10.8) x10^3/uL RBC (4.70-6.10) 10^6/uL Hgb (14.0-18.0) g/dL Hct (42.0-52.0) % MCV (80.0-94.0) fL MCH (27.0-31.0) pg MCHC (32.0-36.0) g/dL RDW (12.0-15.0) % Plt Count (130-450) 10^3/uL MPV (7.4-11.4) fL Neut # (Auto) Lymph # (Auto) Early # (Auto) Eos # (Auto) Baso # (Auto) Absolute Nucleated RBC Total Counted Band Neuts % (Manual) (0 - 10) % Reactive Lymphs % (Man) % Abnorm Lymph % (Manual) % Nucleated RBC % Neutrophils # (Manual) (1.5-6.6) 10^3/uL Lymphocytes # (Manual) (1.5-3.5) 10^3/uL Monocytes # (Manual) (0.0-1.0) 10^3/uL Eosinophils # (Manual) (0-0.7) 10^3/uL Basophils # (Manual) (0-0.1) 10^3/uL Differential Comment RBC Morph Micro Appear (NORMAL) ESR 63 H (0-20) mm/Hr Sodium 136 (135-145) mmol/L Potassium 4.0 (3.5-4.5) mmol/L Chloride 107 (101-111) mmol/L Carbon Dioxide 21 (21-32) mmol/L Anion Gap 8.0 (6-13) BUN 47 H (6-20) mg/dL Creatinine 0.8 (0.6-1.3) mg/dL Estimated GFR (MDRD) 93 (>89) Glucose 89 (74-104) mg/dL Lactic Acid (0.5-2.2) mmol/L Calcium 7.6 L (8.5-10.3) mg/dL Total Bilirubin (0.2-1.0) mg/dL AST (10-42) IU/L ALT (10-60) IU/L Alkaline Phosphatase (42-121) IU/L Total Protein (6.4-8.9) g/dL Albumin (3.2-5.5) g/dL Globulin (2.1-4.2) g/dL Albumin/Globulin Ratio (1.0-2.2) Procalcitonin Immunoas 16.49 H* (<0.5) ng/mL 05/06/24 05/05/24 05/05/24 Range/Units 05:24 11:23 11:23 WBC 13.0 H (4.8-10.8) x10^3/uL RBC 4.13 L (4.70-6.10) 10^6/uL Hgb 12.1 L (14.0-18.0) g/dL Hct 34.6 L (42.0-52.0) % MCV 83.8 (80.0-94.0) fL MCH 29.3 (27.0-31.0) pg MCHC 35.0 (32.0-36.0) g/dL RDW 15.4 H (12.0-15.0) % Plt Count 124 L (130-450) 10^3/uL MPV 11.6 H (7.4-11.4) fL Neut # (Auto) 11.0 H Lymph # (Auto) 0.8 L Early # (Auto) 1.0 Eos # (Auto) 0.1 Baso # (Auto) 0.0 Absolute Nucleated RBC 0.00 Total Counted Band Neuts % (Manual) (0 - 10) % Reactive Lymphs % (Man) % Abnorm Lymph % (Manual) % Nucleated RBC % 0.0 Neutrophils # (Manual) (1.5-6.6) 10^3/uL Lymphocytes # (Manual) (1.5-3.5) 10^3/uL Monocytes # (Manual) (0.0-1.0) 10^3/uL Eosinophils # (Manual) (0-0.7) 10^3/uL Basophils # (Manual) (0-0.1) 10^3/uL Differential Comment RBC Morph Micro Appear (NORMAL) ESR (0-20) mm/Hr Sodium 133 L (135-145) mmol/L Potassium 4.6 H (3.5-4.5) mmol/L Chloride 101 (101-111) mmol/L Carbon Dioxide 22 (21-32) mmol/L Anion Gap 10.0 (6-13) BUN 58 H (6-20) mg/dL Creatinine 1.0 (0.6-1.3) mg/dL Estimated GFR (MDRD) 72 L (>89) Glucose 80 (74-104) mg/dL Lactic Acid < 0.2 L (0.5-2.2) mmol/L Calcium 8.3 L (8.5-10.3) mg/dL Total Bilirubin 3.3 H (0.2-1.0) mg/dL AST 42 (10-42) IU/L ALT 38 (10-60) IU/L Alkaline Phosphatase 361 H (42-121) IU/L Total Protein 6.1 L (6.4-8.9) g/dL Albumin 2.9 L (3.2-5.5) g/dL Globulin 3.2 (2.1-4.2) g/dL Albumin/Globulin Ratio 0.9 L (1.0-2.2) Procalcitonin Immunoas (<0.5) ng/mL 05/05/24 Range/Units 11:23 WBC 12.2 H (4.8-10.8) x10^3/uL RBC 5.01 (4.70-6.10) 10^6/uL Hgb 14.4 (14.0-18.0) g/dL Hct 41.8 L (42.0-52.0) % MCV 83.4 (80.0-94.0) fL MCH 28.7 (27.0-31.0) pg MCHC 34.4 (32.0-36.0) g/dL RDW 14.9 (12.0-15.0) % Plt Count 98 L (130-450) 10^3/uL MPV 11.4 (7.4-11.4) fL Neut # (Auto) Not Reportable Lymph # (Auto) Not Reportable Early # (Auto) Not Reportable Eos # (Auto) Not Reportable Baso # (Auto) Not Reportable Absolute Nucleated RBC Not Reportable Total Counted 100 Band Neuts % (Manual) 22 H (0 - 10) % Reactive Lymphs % (Man) 4 % Abnorm Lymph % (Manual) 0 % Nucleated RBC % Not Reportable Neutrophils # (Manual) 11.5 H (1.5-6.6) 10^3/uL Lymphocytes # (Manual) 0.7 L (1.5-3.5) 10^3/uL Monocytes # (Manual) 0.0 (0.0-1.0) 10^3/uL Eosinophils # (Manual) 0.0 (0-0.7) 10^3/uL Basophils # (Manual) 0.0 (0-0.1) 10^3/uL Differential Comment MANUAL DIFFERENTIAL RBC Morph Micro Appear 2+ ANISOCYTOSIS (NORMAL) ESR (0-20) mm/Hr Sodium (135-145) mmol/L Potassium (3.5-4.5) mmol/L Chloride (101-111) mmol/L Carbon Dioxide (21-32) mmol/L Anion Gap (6-13) BUN (6-20) mg/dL Creatinine (0.6-1.3) mg/dL Estimated GFR (MDRD) (>89) Glucose (74-104) mg/dL Lactic Acid (0.5-2.2) mmol/L Calcium (8.5-10.3) mg/dL Total Bilirubin (0.2-1.0) mg/dL AST (10-42) IU/L ALT (10-60) IU/L Alkaline Phosphatase (42-121) IU/L Total Protein (6.4-8.9) g/dL Albumin (3.2-5.5) g/dL Globulin (2.1-4.2) g/dL Albumin/Globulin Ratio (1.0-2.2) Procalcitonin Immunoas (<0.5) ng/mL Sepsis Event Note (H) - Evaluation Current Stage of Sepsis: Sepsis Possible source of Sepsis: positive: Genitourinary - Sepsis Criteria Sepsis Criteria: Recorded Heart Rate greater than 90 bpm, Recorded Respiratory Rate greater than 20, WBC count greater than 12,000 or less than 4000, Hematologic: platelets < 100,000; INR > 1.5, or a PTT>60 seconds Assessment/Plan - Problem List (1) Sepsis Impression: IV ceftriaxone Blood culture positive for KlebsiellOxytoca, resistant to ampicillin Follow-up urine cultureShows Klebsiella oxytoca resistant to ampicillin Urine culture positive for gram negative rods Decrease IV hydration Inflammatory markersNoted to be high Recent CT showing nephrolithiasis with right kidney swelling and inflammation, no abscess mentioned. (2) UTI (urinary tract infection) Conclusion/Plan: Urine culture done on 04 May 2024 shows Klebsiella oxytoca resistant to ampicillin Continue IV ceftriaxone Elevated inflammatory markers (3) Nephrolithiasis Conclusion/Plan: Status post urology evaluation appreciated Status post cystoscopy with right ureteral stent placement Further stone treatment as an outpatient Continue IV hydration Continue IV antibiotic Continue monitoring creatinine Continue pain management Initiate p.o. diet (4) Hypothyroidism Conclusion/Plan: Obtain TSH Continue home dose Synthroid (5) Multiple sclerosis Conclusion/Plan: History of immunomodulatory meds in the past Continue muscle relaxant currently Continue pain management Once stable PT OT (6) BPH (benign prostatic hyperplasia) Conclusion/Plan: Continue home dose tamsulosin Status post Boateng by urology to be DC'd with FoleyAs an outpatient (7) Azotemia Conclusion/Plan: Will continue with NS hydration, Decreased rate Hyponatremia Resolved with IV hydration Hyperkalemia Resolved with IV hydration With elevated BUN secondary to dehydration will continue NS hydration monitor BUN and creatinine in a.m.Decrease IV rate of fluids DVT/GI phylaxis: SCD/PPI
[2024-05-06] MEDS: MORPHINE 2 MG/ML CARPUJECT IVP PRN (12:03)
--- NOTE | 2024-05-06 14:22 | PHARMACY PROGRESS NOTE ---
- Best Possible Medication History Admit Date and Time: 05/05/24 1515 Processed by: Pharmacy (Medication Reconciliation completed by Logistics Planning Manager, Laura) Medications reviewed in ED?: No Medication History completed: Yes Patient Interview: Completed Secondary Source(s): Insurance records As the person ultimately responsible for medication therapy, providers are able to order a medication from an existing home medication list in [facility] via the "Reconcile Routine" prior to Confirmation of that medication by administrative support clerk. Such practice is discouraged except when the physician, in their clinical judgment, deems that a medical need exists for a medication without regard to previous use.
--- NOTE | 2024-05-06 16:43 | XRAY Report ---
PROCEDURE: OR C-Arm Procedure INDICATIONS: STENT PLACEMENT FLUORO TIME: 0.1 MIN 32.37 uGym2 TECHNIQUE: 3 views the pelvis were obtained. COMPARISON: CT abdomen pelvis 05/04/2024 FINDINGS: Calcifications overlie the pelvis. IMPRESSION: Intraoperative lithotripsy. Reviewed by: Yahaira Stock MD on 05/06/2024 4:42 PM PDT Approved by: Yahaira Stock MD on 05/06/2024 4:42 PM PDT Station ID: [id number]
[2024-05-06] MEDS ORDERED: SODIUM CHLORIDE 0.9% IV ONE (17:00)
[2024-05-06] MEDS ORDERED: VANCOMYCIN IV ONE (17:00)
[2024-05-07] MEDS: ACETAMINOPHEN 325 MG TABLET PO PRN (00:02)
[2024-05-07] MEDS ORDERED: VANCOMYCIN INJ 1 GM in SODIUM CHLORIDE 0.9% 250 ML IV SCH (05:00)
[2024-05-07 05:14] LABS: BASOPHILS % (AUTO) 0.2 %; EOSINOPHILS % (AUTO) 0.2 %; HCT - HEMATOCRIT 35.6 % (42.0-52.0); HGB - HEMOGLOBIN 11.9 g/dL (14.0-18.0); LYMPHOCYTES # (AUTO) 1.1 10^3/uL (1.5-3.5); LYMPHOCYTES % (AUTO) 6.5 %; MEAN CORPUSCULAR HEMOGLOBIN 28.2 pg (27.0-31.0); MEAN CORPUSCULAR HGB CONC 33.4 g/dL (32.0-36.0); MEAN CORPUSCULAR VOLUME 84.4 fL (80.0-94.0); MEAN PLATELET VOLUME 10.9 fL (7.4-11.4); MONOCYTES # (AUTO) 1.2 10^3/uL (0.0-1.0); MONOCYTES % (AUTO) 7.1 %; NEUTROPHILS % (AUTO) 83.7 %; PLT - PLATELET COUNT 184 10^3/uL (130-450); RED BLOOD COUNT 4.22 10^6/uL (4.70-6.10); RED CELL DISTRIBUTION WIDTH 15.4 % (12.0-15.0); WHITE BLOOD COUNT 16.7 x10^3/uL (4.8-10.8)
[2024-05-07 05:47] LABS: CALCIUM 7.9 mg/dL (8.5-10.3); CREATININE 0.7 mg/dL (0.6-1.3); CRP - C-REACTIVE PROTEIN 21.1 mg/dL (<0.5)
[2024-05-07] MEDS: PANTOPRAZOLE 40 MG TABLET PO SCH (06:30)
[2024-05-07] MEDS: LEVOTHYROXINE 112 MCG TABLET PO SCH (06:30)
[2024-05-07] MEDS: MEROPENEM 1 GM in SODIUM CHLORIDE 0.9% MINIBAG 100 ML IV SCH (07:54)
--- NOTE | 2024-05-07 08:25 | PROVIDER PROGRESS NOTE ---
Subjective - General Admit Date: 05/05/24 Procedure Date: 05/05/24 Post Op Days: 2 Procedure Performed: Cystoscopy, right ureteral stent, right retrograde pyelogram - Review of Systems Drain Type: camacho Drain Output Description: CYU General: positive: Fever, Other (Patient states he has no pain unless he moves, then he feels pain in his back on the right) Objective - Patient Data Reviewed Vital Signs: Yes Vital Signs: Vital Signs x48h Temp Pulse Resp BP Pulse Ox 05/07/24 07:54 36.7 C 84 20 144/74 H 95 05/07/24 04:58 37.2 C 88 22 141/72 H 95 Weight: Weight 05/05/24 05/06/24 05/07/24 23:59 23:59 23:59 Weight (kg) 77.5 kg Intake & Output: Intake and Output Totals x24h 05/05/24 05/06/24 05/07/24 23:59 23:59 23:59 Intake Total 1100 4140 1156.667 Output Total 225 1325 875 Balance 875 2815 281.667 - Lab Results Lab Results: 05/07/24 04:55 05/07/24 04:55 Other Lab Results: Lab Results x24hrs 05/07/24 05/07/24 05/07/24 Range/Units 04:55 04:55 00:33 WBC 16.7 H (4.8-10.8) x10^3/uL RBC 4.22 L (4.70-6.10) 10^6/uL Hgb 11.9 L (14.0-18.0) g/dL Hct 35.6 L (42.0-52.0) % MCV 84.4 (80.0-94.0) fL MCH 28.2 (27.0-31.0) pg MCHC 33.4 (32.0-36.0) g/dL RDW 15.4 H (12.0-15.0) % Plt Count 184 (130-450) 10^3/uL MPV 10.9 (7.4-11.4) fL Neut # (Auto) 14.0 H (1.5-6.6) 10^3/uL Lymph # (Auto) 1.1 L (1.5-3.5) 10^3/uL Parmer # (Auto) 1.2 H (0.0-1.0) 10^3/uL Eos # (Auto) 0.0 (0.0-0.7) 10^3/uL Baso # (Auto) 0.0 (0.0-0.1) 10^3/uL Absolute Nucleated RBC 0.00 x10^3/uL Nucleated RBC % 0.0 /100WBC ESR (0-20) mm/Hr Sodium 134 L (135-145) mmol/L Potassium 4.0 (3.5-4.5) mmol/L Chloride 108 (101-111) mmol/L Carbon Dioxide 21 (21-32) mmol/L Anion Gap 5.0 L (6-13) BUN 27 H (6-20) mg/dL Creatinine 0.7 (0.6-1.3) mg/dL Estimated GFR (MDRD) 109 (>89) Glucose 143 H (74-104) mg/dL Calcium 7.9 L (8.5-10.3) mg/dL C-Reactive Protein 21.1 H 22.1 H (<0.5) mg/dL TSH (0.34-5.60) uIU/mL 05/07/24 05/06/24 Range/Units 00:33 05:24 WBC (4.8-10.8) x10^3/uL RBC (4.70-6.10) 10^6/uL Hgb (14.0-18.0) g/dL Hct (42.0-52.0) % MCV (80.0-94.0) fL MCH (27.0-31.0) pg MCHC (32.0-36.0) g/dL RDW (12.0-15.0) % Plt Count (130-450) 10^3/uL MPV (7.4-11.4) fL Neut # (Auto) (1.5-6.6) 10^3/uL Lymph # (Auto) (1.5-3.5) 10^3/uL Parmer # (Auto) (0.0-1.0) 10^3/uL Eos # (Auto) (0.0-0.7) 10^3/uL Baso # (Auto) (0.0-0.1) 10^3/uL Absolute Nucleated RBC x10^3/uL Nucleated RBC % /100WBC ESR 81 H (0-20) mm/Hr Sodium (135-145) mmol/L Potassium (3.5-4.5) mmol/L Chloride (101-111) mmol/L Carbon Dioxide (21-32) mmol/L Anion Gap (6-13) BUN (6-20) mg/dL Creatinine (0.6-1.3) mg/dL Estimated GFR (MDRD) (>89) Glucose (74-104) mg/dL Calcium (8.5-10.3) mg/dL C-Reactive Protein (<0.5) mg/dL TSH 2.12 (0.34-5.60) uIU/mL - Current Medications Current Medications: Current Medications Generic Name Dose Route Start Last Admin Trade Name Freq PRN Reason Stop Dose Admin Acetaminophen 650 mg 05/06/24 23:56 05/07/24 06:30 Acetaminophen 325 Mg Tablet PO 650 mg Q4HR PRN Administration Pain 1 to 4, or Fever Sodium Chloride 1,000 mls @ 100 mls/hr 05/05/24 16:00 05/07/24 08:07 Normal Saline 0.9% IV 0 mls/hr .Q10H MINA Infusion Meropenem 1 gm/ Sodium 100 mls @ 200 mls/hr 05/07/24 08:00 05/07/24 07:54 Chloride IV 200 mls/hr Q8H [facility]A Administration Levothyroxine Sodium 112 mcg 05/07/24 07:00 05/07/24 06:30 Levothyroxine 112 Mcg Tablet PO 112 mcg QDAC MINA Administration Methocarbamol 750 mg 05/05/24 15:40 05/06/24 10:00 Methocarbamol 500 Mg Tablet PO 750 mg TID PRN Administration Spasms Morphine Sulfate 2 mg 05/05/24 15:22 05/06/24 12:03 Morphine 2 Mg/Ml Carpuject IVP 2 mg Q2HR PRN Administration Pain 8 to 10 Pantoprazole Sodium 40 mg 05/07/24 07:00 05/07/24 06:30 Pantoprazole 40 Mg Tablet PO 40 mg QDAC MINA Administration Sodium Chloride 10 ml 05/05/24 17:00 05/07/24 01:00 Sodium Chloride Flush 0.9% 10 Ml Syringe IVP 10 ml 0100,0900,1700 MINA Administration Tamsulosin HCl 0.8 mg 05/06/24 09:00 05/06/24 08:31 Tamsulosin 0.4 Mg Capsule PO 0.8 mg DAILY MINA Administration - Physical Exam Comments/Other: Overnight he had a fever 38.3. His blood cultures have previously grown out Klebsiella but now there also grew out gram-positive cocci as well. Ceftriaxone continues but he has also had vancomycin added onto his regimen by his primary team His leukocytosis is worsening from 13,000-16,000 ABX Reporting Has patient been on IV antibiotics over the past 48 hours?: Yes Impression/Plan - Problem List Problem List: 78-year-old male with UTI and bacteremia including gram-negative and gram- positive bacteria. I have concerns that he had a fever last night and his leukocytosis is worsening. I agree with broadening his antibiotics with vancomycin and rechecking his blood cultures. If he has gram-positive cocci truly in his blood then he should have an echocardiogram as well to rule out vegetations soon I recommend a CT abdomen pelvis with IV contrast to assess for any anatomical issues including renal abscesses or perhaps further evidence of obstruction
[2024-05-07] MEDS: VANCOMYCIN INJ 1 GM in SODIUM CHLORIDE 0.9% 250 ML IV SCH (09:19)
--- NOTE | 2024-05-07 11:07 | PHARMACY PROGRESS NOTE ---
- Therapy Status Vancomycin regimen day #: 1 Therapy status: Awaiting steady state Basis for treatment: Empirical Treatment indication: blood cultures growing gram positives, pt clinically not improving Trough goal: auc 400-600 Concurrent antibiotics: meropenem - ROLAND Risk Risk level for Acute Kidney Injury: Moderate - Monitoring and Recommendation Clinical response to treatment: I&O Previous 24 hours 05/05/24 05/06/24 05/07/24 23:59 23:59 23:59 Intake Total 1000 Balance 1000 Lab Results 05/05/24 11:23 BUN 58 H Creatinine 1.0 Estimated GFR (MDRD) 72 L Cultures 05/05/24 11:23 Blood Blood Culture (PCR) - Final 05/05/24 11:23 Blood - Right Arm Blood Culture - Preliminary 05/05/24 11:28 Blood - Left Arm Blood Culture (PCR) - Final 05/05/24 11:28 Blood - Left Arm Blood Culture - Preliminary 05/05/24 11:23 Blood - Right Arm Blood Culture (PCR) - Final Monitoring plan: Daily serum creatinine Areas for additional monitoring: IV to PO when appropriate, Therapy de- escalation based on culture results Pharmacy recommendation: Continue current regime
--- NOTE | 2024-05-07 11:21 | PROVIDER PROGRESS NOTE ---
Subjective - Prog Note Date Prog Note Date: 05/07/24 Prog Note Time: 11:12 - Subjective Subjective: Patient denies any fever denies any dysuria to worsening leukocytosis and a fever noted last night Current Medications - Current Medications Current Medications: Active Medications Acetaminophen (Acetaminophen 325 Mg Tablet) 650 mg PO Q4HR PRN PRN Reason: Pain 1 to 4, or Fever Last Admin: 05/07/24 06:30 Dose: 650 mg Hydralazine HCl (Hydralazine Inj 20 Mg/Ml Vial) 10 mg IVP Q6H PRN PRN Reason: Blood Pressure Sodium Chloride (Normal Saline 0.9%) 1,000 mls @ 100 mls/hr IV .Q10H [facility] Last Infusion: 05/07/24 08:25 Dose: 100 mls/hr Meropenem 1 gm/ Sodium (Chloride) 100 mls @ 200 mls/hr IV Q8H [facility] Last Infusion: 05/07/24 08:25 Dose: Infused Vancomycin HCl 1 gm/ Sodium (Chloride) 250 mls @ 167 mls/hr IV Q12H [facility] Last Infusion: 05/07/24 10:50 Dose: Infused Levothyroxine Sodium (Levothyroxine 112 Mcg Tablet) 112 mcg PO QDAC [facility] Last Admin: 05/07/24 06:30 Dose: 112 mcg Methocarbamol (Methocarbamol 500 Mg Tablet) 750 mg PO TID PRN PRN Reason: Spasms Last Admin: 05/06/24 10:00 Dose: 750 mg Morphine Sulfate (Morphine 2 Mg/Ml Carpuject) 2 mg IVP Q2HR PRN PRN Reason: Pain 8 to 10 Last Admin: 05/06/24 12:03 Dose: 2 mg Ondansetron HCl (Ondansetron 4 Mg/2 Ml Vial) 4 mg IVP Q6HR PRN PRN Reason: Nausea / Vomiting Pantoprazole Sodium (Pantoprazole 40 Mg Tablet) 40 mg PO QDAC [facility] Last Admin: 05/07/24 06:30 Dose: 40 mg Sodium Chloride (Sodium Chloride Flush 0.9% 10 Ml Syringe) 10 ml IVP PRN PRN PRN Reason: NEEDED PER PROVIDER ORDERS Sodium Chloride (Sodium Chloride Flush 0.9% 10 Ml Syringe) 10 ml IVP 0100,09 00,1700 [facility] Last Admin: 05/07/24 09:23 Dose: Not Given Tamsulosin HCl (Tamsulosin 0.4 Mg Capsule) 0.8 mg PO DAILY [facility] Last Admin: 05/07/24 09:23 Dose: 0.8 mg Levothyroxine Sodium [Synthroid] 112 mcg PO DAILY 10/12/16 Tamsulosin [Flomax] 0.4 mg PO BID 05/05/24 Objective - Vital Signs/Intake & Output Vital Signs: Vital Signs x48h Temp Pulse Resp BP Pulse Ox 05/07/24 07:54 36.7 C 84 20 144/74 H 95 05/07/24 04:58 37.2 C 88 22 141/72 H 95 Intake & Output: Intake & Output 05/04/24 05/05/24 05/06/24 05/07/24 23:59 23:59 23:59 23:59 Intake Total 1100 4140 1866.667 Output Total 225 1325 875 Balance 875 2815 991.667 - Objective General Appearance: positive: No acute distress Eyes Bilateral: positive: EOMI ENT: positive: Pharynx nml Neck: positive: Trachea midline Respiratory: positive: Chest non-tender, No respiratory distress Cardiovascular: positive: Regular rate & rhythm, No murmur Abdomen: positive: Non-tender, Nml bowel sounds, No distention. negative: Guarding, Rebound Skin: positive: Warm Extremities: positive: No pedal edema Neurologic/Psychiatric: positive: Oriented x3, Motor nml - Lab Results Fish Bones: 05/07/24 04:55 05/07/24 04:55 Other Labs: Lab Results x24hrs 05/07/24 05/07/24 05/07/24 Range/Units 04:55 04:55 00:33 WBC 16.7 H (4.8-10.8) x10^3/uL RBC 4.22 L (4.70-6.10) 10^6/uL Hgb 11.9 L (14.0-18.0) g/dL Hct 35.6 L (42.0-52.0) % MCV 84.4 (80.0-94.0) fL MCH 28.2 (27.0-31.0) pg MCHC 33.4 (32.0-36.0) g/dL RDW 15.4 H (12.0-15.0) % Plt Count 184 (130-450) 10^3/uL MPV 10.9 (7.4-11.4) fL Neut # (Auto) 14.0 H (1.5-6.6) 10^3/uL Lymph # (Auto) 1.1 L (1.5-3.5) 10^3/uL [place] # (Auto) 1.2 H (0.0-1.0) 10^3/uL Eos # (Auto) 0.0 (0.0-0.7) 10^3/uL Baso # (Auto) 0.0 (0.0-0.1) 10^3/uL Absolute Nucleated RBC 0.00 x10^3/uL Nucleated RBC % 0.0 /100WBC ESR (0-20) mm/Hr Sodium 134 L (135-145) mmol/L Potassium 4.0 (3.5-4.5) mmol/L Chloride 108 (101-111) mmol/L Carbon Dioxide 21 (21-32) mmol/L Anion Gap 5.0 L (6-13) BUN 27 H (6-20) mg/dL Creatinine 0.7 (0.6-1.3) mg/dL Estimated GFR (MDRD) 109 (>89) Glucose 143 H (74-104) mg/dL Calcium 7.9 L (8.5-10.3) mg/dL C-Reactive Protein 21.1 H 22.1 H (<0.5) mg/dL TSH (0.34-5.60) uIU/mL 05/07/24 05/06/24 Range/Units 00:33 05:24 WBC (4.8-10.8) x10^3/uL RBC (4.70-6.10) 10^6/uL Hgb (14.0-18.0) g/dL Hct (42.0-52.0) % MCV (80.0-94.0) fL MCH (27.0-31.0) pg MCHC (32.0-36.0) g/dL RDW (12.0-15.0) % Plt Count (130-450) 10^3/uL MPV (7.4-11.4) fL Neut # (Auto) (1.5-6.6) 10^3/uL Lymph # (Auto) (1.5-3.5) 10^3/uL [place] # (Auto) (0.0-1.0) 10^3/uL Eos # (Auto) (0.0-0.7) 10^3/uL Baso # (Auto) (0.0-0.1) 10^3/uL Absolute Nucleated RBC x10^3/uL Nucleated RBC % /100WBC ESR 81 H (0-20) mm/Hr Sodium (135-145) mmol/L Potassium (3.5-4.5) mmol/L Chloride (101-111) mmol/L Carbon Dioxide (21-32) mmol/L Anion Gap (6-13) BUN (6-20) mg/dL Creatinine (0.6-1.3) mg/dL Estimated GFR (MDRD) (>89) Glucose (74-104) mg/dL Calcium (8.5-10.3) mg/dL C-Reactive Protein (<0.5) mg/dL TSH 2.12 (0.34-5.60) uIU/mL Sepsis Event Note (H) - Evaluation Current Stage of Sepsis: Sepsis Possible source of Sepsis: positive: Genitourinary - Sepsis Criteria Sepsis Criteria: Recorded Heart Rate greater than 90 bpm, Recorded Respiratory Rate greater than 20, WBC count greater than 12,000 or less than 4000, Hematologic: platelets < 100,000; INR > 1.5, or a PTT>60 seconds Assessment/Plan - Problem List (1) Sepsis Impression: IV ceftriaxone Blood culture positive for KlebsiellOxytoca, resistant to ampicillin, Final PCR blood culture no growth, 2 preliminary blood culture positive for gram-positive cocci in cluster Follow-up urine cultureShows Klebsiella oxytoca resistant to ampicillin IV hydration Inflammatory markersNoted to be high Recent CT showing nephrolithiasis with right kidney swelling and inflammation, no abscess mentioned. Patient with worsening leukocytosis and fever overnight discussed with urology suggest CT of abdomen pelvis with contrast to evaluate for potential abscesses Will DC ceftriaxone and initiate broad-spectrum antibiotic with meropenem and vancomycin until further blood culture speciation is done, will repeat new set of blood cultures. (2) UTI (urinary tract infection) Conclusion/Plan: Urine culture done on 04 May 2024 shows Klebsiella oxytoca resistant to ampicillin Antibiotic broadened to meropenem and vancomycin Elevated inflammatory markers Repeat UA (3) Nephrolithiasis Conclusion/Plan: Status post urology evaluation appreciated Status post cystoscopy with right ureteral stent placement Further stone treatment as an outpatient Continue IV hydration Continue IV antibiotic Continue monitoring creatinine Continue pain management Initiate p.o. diet (4) Hypothyroidism Conclusion/Plan: Obtain TSH Continue home dose Synthroid (5) Multiple sclerosis Conclusion/Plan: History of immunomodulatory meds in the past Continue muscle relaxant currently Continue pain management Once stable PT OT (6) BPH (benign prostatic hyperplasia) Conclusion/Plan: Continue home dose tamsulosin Status post Boateng by urology to be DC'd with FoleyAs an outpatient (7) Azotemia Conclusion/Plan: Will continue with NS hydration, Hyponatremia Resolved with IV hydration Hyperkalemia Resolved with IV hydration With elevated BUN secondary to dehydration will continue NS hydration monitor BUN and creatinine in a.m.Improving DVT/GI phylaxis: SCD/PPI
[2024-05-07] MEDS ORDERED: iohexoL-300 100 ML VIAL ONE (11:54)
[2024-05-07 14:20] LABS: BILIRUBIN,URINE NEGATIVE (NEGATIVE); GLUCOSE, URINE (UA) NEGATIVE (NEGATIVE); KETONES,URINE (UA) NEGATIVE (NEGATIVE); LEUKOCYTE ESTERASE, URINE MODERATE (NEGATIVE); NITRITE,URINE NEGATIVE (NEGATIVE); OCCULT BLOOD,URINE LARGE (NEGATIVE); PROTEIN,URINE 30 mg/dL (NEGATIVE); UROBILINOGEN,URINE 1 (NORMAL) E.U./dL (NORMAL)
[2024-05-07 14:25] LABS: CLARITY,URINE HAZY (CLEAR)
[2024-05-07 14:32] LABS: RBC,URINE TNTC /HPF (0-5); SQUAMOUS EPITHELIAL CELL,UR NONE SEEN (<= Few); WBC,URINE >25 /HPF (0-3)
[2024-05-07 14:33] LABS: BACTERIA,URINE Few /HPF (None Seen)
--- NOTE | 2024-05-07 15:01 | CT Report ---
PROCEDURE: Abdomen/Pelvis W INDICATIONS: Evaluate for abscess CONTRAST: 100ml [id number]. TECHNIQUE: After the administration of intravenous contrast, a CT scan of the abdomen and pelvis was performed. Images were recorded and evaluated at appropriate window settings. Reformats: coronal and sagittal. F or radiation dose reduction, the following was used: automated exposure control, adjustment of mA and /or kV according to patient size. COMPARISON: 05/04/2024. FINDINGS: Image quality: Diagnostic. Lower chest: Development of minimal bilateral pleural effusions. Animal bibasilar atelectasis. Liver: No solid mass. Gallbladder: No radiopaque stones or wall thickening. Biliary tree: No intrahepatic or extrahepatic dilation, accounting for age. Spleen: No splenomegaly. Pancreas: No pancreatic ductal dilation. Adrenals: No adrenal nodule. Kidneys and ureters: Interval placement of a right ureteral stent. However, the inferior pigtail is l ikely outside of the bladder and the distal ureter. There is development of right perinephric fluid s uggesting likely calyceal rupture. Again noted is a large nonobstructing left renal pelvic stone. No left hydronephrosis. Stomach, bowel and peritoneum: No gastric or small bowel dilation. No abnormal wall thickening. No pa thologic free fluid. Lymph nodes: No central or retroperitoneal adenopathy. Vessels: No infrarenal aortic aneurysm. Patent portal vein. PELVIS Reproductive organs: Severe prostatomegaly. Bladder: Interval placement of a Boateng catheter, decompressing the bladder. There is mild bladder wal l thickening. Pelvic lymph nodes: No pelvic adenopathy by size criteria. Bones: No aggressive osseous abnormality. Other: No significant ventral or inguinal hernia. IMPRESSION: 1. Severe prostatomegaly with interval placement of a Boateng catheter. 2. Interval right double-J ureteral stent placement, the inferior pigtail of which appears to potenti ally be in the distal ureter and not the bladder. There is right perinephric fluid suggesting calyceal rupture. There is no right hydronephrosis. 3. Large nonobstructing left renal pelvic stone. 4. Large fecal load. 5. Development of minimal bilateral pleural effusions. There is also minimal bibasilar atelectasis.. Reviewed by: Saurabh Duenas MD on 05/07/2024 3:00 PM PDT Approved by: Saurabh Duenas MD on 05/07/2024 3:00 PM PDT Station ID: [id number]
[2024-05-07] MEDS: iohexoL-300 100 ML VIAL IVP ONE (15:51)
[2024-05-07] MEDS: LACTULOSE 10 GM /15 ML UDC PO SCH (18:30)
[2024-05-08 05:13] LABS: BASOPHILS % (AUTO) 0.2 %; EOSINOPHILS # (AUTO) 0.1 10^3/uL (0.0-0.7); EOSINOPHILS % (AUTO) 0.7 %; HCT - HEMATOCRIT 33.2 % (42.0-52.0); HGB - HEMOGLOBIN 11.4 g/dL (14.0-18.0); LYMPHOCYTES # (AUTO) 1.1 10^3/uL (1.5-3.5); LYMPHOCYTES % (AUTO) 6.2 %; MEAN CORPUSCULAR HEMOGLOBIN 29.1 pg (27.0-31.0); MEAN CORPUSCULAR HGB CONC 34.3 g/dL (32.0-36.0); MEAN CORPUSCULAR VOLUME 84.7 fL (80.0-94.0); MEAN PLATELET VOLUME 10.3 fL (7.4-11.4); MONOCYTES # (AUTO) 0.9 10^3/uL (0.0-1.0); MONOCYTES % (AUTO) 4.7 %; NEUTROPHILS # (AUTO) 15.5 10^3/uL (1.5-6.6); NEUTROPHILS % (AUTO) 86.1 %; PLT - PLATELET COUNT 221 10^3/uL (130-450); RED BLOOD COUNT 3.92 10^6/uL (4.70-6.10); RED CELL DISTRIBUTION WIDTH 15.2 % (12.0-15.0)
[2024-05-08 05:30] LABS: CALCIUM 7.7 mg/dL (8.5-10.3); CREATININE 0.6 mg/dL (0.6-1.3); POTASSIUM 3.8 mmol/L (3.5-4.5)
--- NOTE | 2024-05-08 07:56 | POST OP PROGRESS NOTE ---
Subjective - General Admit Date: 05/05/24 Procedure Date: 05/05/24 Post Op Days: 3 Procedure Performed: Cystoscopy, right ureteral stent, right retrograde pyelogram - Review of Systems Drain Type: camacho Drain Output Description: CYU - Other Other Information/Narrative: No issues overnight, no BM
--- NOTE | 2024-05-08 07:59 | PROVIDER PROGRESS NOTE ---
Subjective - General Admit Date: 05/05/24 Procedure Date: 05/05/24 Post Op Days: 3 Procedure Performed: Cystoscopy, right ureteral stent, right retrograde pyelogram - Review of Systems Drain Type: camacho Drain Output Description: CYU - Other Other Information/Narrative: No issues overnight, no BM Objective - Patient Data Reviewed Vital Signs: Yes Vital Signs: Vital Signs x48h Temp Pulse Resp BP Pulse Ox 05/08/24 00:27 36.9 C 92 20 137/76 H 93 Intake & Output: Intake and Output Totals x24h 05/06/24 05/07/24 05/08/24 23:59 23:59 23:59 Intake Total 4140 3343.334 1100 Output Total 1325 2225 900 Balance 2815 1118.334 200 - Lab Results Lab Results: 05/08/24 05:00 05/08/24 05:00 Other Lab Results: Lab Results x24hrs 05/08/24 05/08/24 05/08/24 Range/Units 05:00 05:00 05:00 WBC (4.8-10.8) x10^3/uL RBC (4.70-6.10) 10^6/uL Hgb (14.0-18.0) g/dL Hct (42.0-52.0) % MCV (80.0-94.0) fL MCH (27.0-31.0) pg MCHC (32.0-36.0) g/dL RDW (12.0-15.0) % Plt Count (130-450) 10^3/uL MPV (7.4-11.4) fL Neut # (Auto) (1.5-6.6) 10^3/uL Lymph # (Auto) (1.5-3.5) 10^3/uL [place] # (Auto) (0.0-1.0) 10^3/uL Eos # (Auto) (0.0-0.7) 10^3/uL Baso # (Auto) (0.0-0.1) 10^3/uL Absolute Nucleated RBC x10^3/uL Nucleated RBC % /100WBC Sodium 132 L (135-145) mmol/L Potassium 3.8 (3.5-4.5) mmol/L Chloride 105 (101-111) mmol/L Carbon Dioxide 21 (21-32) mmol/L Anion Gap 6.0 (6-13) BUN 18 (6-20) mg/dL Creatinine 0.6 (0.6-1.3) mg/dL Estimated GFR (MDRD) 130 (>89) Glucose 106 H (74-104) mg/dL Calcium 7.7 L (8.5-10.3) mg/dL C-Reactive Protein 16.7 H (<0.5) mg/dL Procalcitonin Immunoas 3.86 H* (<0.5) ng/mL Urine Color Urine Clarity (CLEAR) Urine pH (5.0-7.5) PH Ur Specific [place] (1.002-1.030) Urine Protein (NEGATIVE) mg/dL Urine Glucose (UA) (NEGATIVE) mg/dL Urine Ketones (NEGATIVE) mg/dL Urine Occult Blood (NEGATIVE) Urine Nitrite (NEGATIVE) Urine Bilirubin (NEGATIVE) Urine Urobilinogen (NORMAL) E.U./dL Ur Leukocyte Esterase (NEGATIVE) Urine RBC (0-5) /HPF Urine WBC (0-3) /HPF Ur Squamous Epith Cells (<= Few) Urine Bacteria (None Seen) /HPF Urine Culture Comments 05/08/24 05/07/24 Range/Units 05:00 14:00 WBC 18.0 H (4.8-10.8) x10^3/uL RBC 3.92 L (4.70-6.10) 10^6/uL Hgb 11.4 L (14.0-18.0) g/dL Hct 33.2 L (42.0-52.0) % MCV 84.7 (80.0-94.0) fL MCH 29.1 (27.0-31.0) pg MCHC 34.3 (32.0-36.0) g/dL RDW 15.2 H (12.0-15.0) % Plt Count 221 (130-450) 10^3/uL MPV 10.3 (7.4-11.4) fL Neut # (Auto) 15.5 H (1.5-6.6) 10^3/uL Lymph # (Auto) 1.1 L (1.5-3.5) 10^3/uL [place] # (Auto) 0.9 (0.0-1.0) 10^3/uL Eos # (Auto) 0.1 (0.0-0.7) 10^3/uL Baso # (Auto) 0.0 (0.0-0.1) 10^3/uL Absolute Nucleated RBC 0.00 x10^3/uL Nucleated RBC % 0.0 /100WBC Sodium (135-145) mmol/L Potassium (3.5-4.5) mmol/L Chloride (101-111) mmol/L Carbon Dioxide (21-32) mmol/L Anion Gap (6-13) BUN (6-20) mg/dL Creatinine (0.6-1.3) mg/dL Estimated GFR (MDRD) (>89) Glucose (74-104) mg/dL Calcium (8.5-10.3) mg/dL C-Reactive Protein (<0.5) mg/dL Procalcitonin Immunoas (<0.5) ng/mL Urine Color DARK YELLOW Urine Clarity HAZY (CLEAR) Urine pH 6.0 (5.0-7.5) PH Ur Specific [place] 1.020 (1.002-1.030) Urine Protein 30 H (NEGATIVE) mg/dL Urine Glucose (UA) NEGATIVE (NEGATIVE) mg/dL Urine Ketones NEGATIVE (NEGATIVE) mg/dL Urine Occult Blood LARGE H (NEGATIVE) Urine Nitrite NEGATIVE (NEGATIVE) Urine Bilirubin NEGATIVE (NEGATIVE) Urine Urobilinogen 1 (NORMAL) (NORMAL) E.U./dL Ur Leukocyte Esterase MODERATE H (NEGATIVE) Urine RBC TNTC H (0-5) /HPF Urine WBC >25 H (0-3) /HPF Ur Squamous Epith Cells NONE SEEN (<= Few) Urine Bacteria Few (None Seen) /HPF Urine Culture Comments INDICATED - Imaging Results Radiology Imaging: positive: Final report received, EMP read indepedently - Current Medications Current Medications: Current Medications Generic Name Dose Route Start Last Admin Trade Name Freq PRN Reason Stop Dose Admin Acetaminophen 650 mg 05/06/24 23:56 05/07/24 06:30 Acetaminophen 325 Mg Tablet PO 650 mg Q4HR PRN Administration Pain 1 to 4, or Fever Sodium Chloride 1,000 mls @ 100 mls/hr 05/05/24 16:00 05/08/24 04:29 Normal Saline 0.9% IV 100 mls/hr .Q10H [facility] Administration Meropenem 1 gm/ Sodium 100 mls @ 200 mls/hr 05/07/24 08:00 05/08/24 02:56 Chloride IV Infused Q8H [facility] Infusion Vancomycin HCl 1 gm/ Sodium 250 mls @ 167 mls/hr 05/07/24 08:00 05/07/24 22:54 Chloride IV Infused Q12H [facility] Infusion Levothyroxine Sodium 112 mcg 05/07/24 07:00 05/08/24 06:42 Levothyroxine 112 Mcg Tablet PO 112 mcg QDAC [facility] Administration Methocarbamol 750 mg 05/05/24 15:40 05/06/24 10:00 Methocarbamol 500 Mg Tablet PO 750 mg TID PRN Administration Spasms Morphine Sulfate 2 mg 05/05/24 15:22 05/07/24 21:01 Morphine 2 Mg/Ml Carpuject IVP 2 mg Q2HR PRN Administration Pain 8 to 10 Pantoprazole Sodium 40 mg 05/07/24 07:00 05/08/24 06:42 Pantoprazole 40 Mg Tablet PO 40 mg QDAC [facility] Administration Sodium Chloride 10 ml 05/05/24 17:00 05/08/24 00:49 Sodium Chloride Flush 0.9% 10 Ml Syringe IVP 10 ml 0100,0900,1700 [facility] Administration Tamsulosin HCl 0.8 mg 05/06/24 09:00 05/07/24 09:23 Tamsulosin 0.4 Mg Capsule PO 0.8 mg DAILY [facility] Administration - Physical Exam General Appearance: positive: No acute distress Abdomen: positive: Other (CYU in camacho) ABX Reporting Has patient been on IV antibiotics over the past 48 hours?: Yes Impression/Plan - Problem List Problem List: Yesterday we obtained a CT abdomen pelvis with contrast to assess for any subtle reasons for his continued leukocytosis and his fever 2 nights ago. This was a benign scan however did reveal large volume constipation. He has not had a bow el movement in several days. He is passing flatus. He remains afebrile. His vitals are more stable. He has excellent urine output. His lab work is notable for continued worsening of his leukocytosis from 16.7 to 18. However his procalcitonin is much improved from 16.52 days ago to 3.9 and his CRP is down from 22to 16.7 He remains good spirits. I recommend aggressive bowel regimen today. I recommend leaving the catheter in place I recommend continuing ceftriaxone and vancomycin empirically until we get results of our secondary blood cultures along with urine and blood sensitivities. I recommend echocardiogram his heart to evaluate for any concerns or vegetations We will continue to follow
[2024-05-08] MEDS: SENNA 8.6 MG TABLET PO SCH (11:12)
--- NOTE | 2024-05-08 11:44 | PROVIDER PROGRESS NOTE ---
Subjective - Prog Note Date Prog Note Date: 05/08/24 Prog Note Time: 11:33 - Subjective Subjective: Patient supine in bed currently in no acute pain, no dysuria, small bowel movement yesterday Current Medications - Current Medications Current Medications: Active Medications Acetaminophen (Acetaminophen 325 Mg Tablet) 650 mg PO Q4HR PRN PRN Reason: Pain 1 to 4, or Fever Last Admin: 05/07/24 06:30 Dose: 650 mg Hydralazine HCl (Hydralazine Inj 20 Mg/Ml Vial) 10 mg IVP Q6H PRN PRN Reason: Blood Pressure Meropenem 1 gm/ Sodium (Chloride) 100 mls @ 200 mls/hr IV Q8H [facility] Last Infusion: 05/08/24 11:12 Dose: Infused Vancomycin HCl 1 gm/ Sodium (Chloride) 250 mls @ 167 mls/hr IV Q12H [facility] Last Admin: 05/08/24 11:13 Dose: 167 mls/hr Levothyroxine Sodium (Levothyroxine 112 Mcg Tablet) 112 mcg PO QDAC [facility] Last Admin: 05/08/24 06:42 Dose: 112 mcg Methocarbamol (Methocarbamol 500 Mg Tablet) 750 mg PO TID PRN PRN Reason: Spasms Last Admin: 05/08/24 08:15 Dose: 750 mg Morphine Sulfate (Morphine 2 Mg/Ml Carpuject) 2 mg IVP Q2HR PRN PRN Reason: Pain 8 to 10 Last Admin: 05/07/24 21:01 Dose: 2 mg Ondansetron HCl (Ondansetron 4 Mg/2 Ml Vial) 4 mg IVP Q6HR PRN PRN Reason: Nausea / Vomiting Pantoprazole Sodium (Pantoprazole 40 Mg Tablet) 40 mg PO QDAC [facility] Last Admin: 05/08/24 06:42 Dose: 40 mg Senna (Senna 8.6 Mg Tablet) 17.2 mg PO BID [facility] Stop: 05/09/24 21:01 Last Admin: 05/08/24 11:12 Dose: 17.2 mg Sodium Chloride (Sodium Chloride Flush 0.9% 10 Ml Syringe) 10 ml IVP PRN PRN PRN Reason: NEEDED PER PROVIDER ORDERS Sodium Chloride (Sodium Chloride Flush 0.9% 10 Ml Syringe) 10 ml IVP 0100,0900,1700 [facility] Last Admin: 05/08/24 08:15 Dose: 10 ml Tamsulosin HCl (Tamsulosin 0.4 Mg Capsule) 0.8 mg PO DAILY [facility] Last Admin: 05/08/24 08:15 Dose: 0.8 mg Levothyroxine Sodium [Synthroid] 112 mcg PO DAILY 10/12/16 Tamsulosin [Flomax] 0.4 mg PO BID 05/05/24 Objective - Vital Signs/Intake & Output Reviewed Vital Signs: Yes Vital Signs: Vital Signs x48h Temp Pulse Resp BP Pulse Ox 05/08/24 08:18 36.5 C 84 20 130/74 94 Intake & Output: Intake & Output 05/05/24 05/06/24 05/07/24 05/08/24 23:59 23:59 23:59 23:59 Intake Total 1100 4140 3343.334 1440 Output Total 225 1325 2225 900 Balance 875 2815 1118.334 540 - Objective General Appearance: positive: No acute distress Eyes Bilateral: positive: EOMI ENT: positive: Dry mucous membranes Neck: positive: Trachea midline Respiratory: positive: No respiratory distress, Breath sounds nml Cardiovascular: positive: Regular rate & rhythm, No murmur Abdomen: positive: Non-tender, Nml bowel sounds, No distention. negative: Guarding, Rebound Skin: positive: Warm Extremities: positive: No pedal edema Neurologic/Psychiatric: positive: Oriented x3, Motor nml - Lab Results Fish Bones: 05/08/24 05:00 05/08/24 05:00 Other Labs: Lab Results x24hrs 05/08/24 05/08/24 05/08/24 Range/Units 05:00 05:00 05:00 WBC (4.8-10.8) x10^3/uL RBC (4.70-6.10) 10^6/uL Hgb (14.0-18.0) g/dL Hct (42.0-52.0) % MCV (80.0-94.0) fL MCH (27.0-31.0) pg MCHC (32.0-36.0) g/dL RDW (12.0-15.0) % Plt Count (130-450) 10^3/uL MPV (7.4-11.4) fL Neut # (Auto) (1.5-6.6) 10^3/uL Lymph # (Auto) (1.5-3.5) 10^3/uL [place] # (Auto) (0.0-1.0) 10^3/uL Eos # (Auto) (0.0-0.7) 10^3/uL Baso # (Auto) (0.0-0.1) 10^3/uL Absolute Nucleated RBC x10^3/uL Nucleated RBC % /100WBC Sodium 132 L (135-145) mmol/L Potassium 3.8 (3.5-4.5) mmol/L Chloride 105 (101-111) mmol/L Carbon Dioxide 21 (21-32) mmol/L Anion Gap 6.0 (6-13) BUN 18 (6-20) mg/dL Creatinine 0.6 (0.6-1.3) mg/dL Estimated GFR (MDRD) 130 (>89) Glucose 106 H (74-104) mg/dL Calcium 7.7 L (8.5-10.3) mg/dL C-Reactive Protein 16.7 H (<0.5) mg/dL Procalcitonin Immunoas 3.86 H* (<0.5) ng/mL Urine Color Urine Clarity (CLEAR) Urine pH (5.0-7.5) PH Ur Specific [place] (1.002-1.030) Urine Protein (NEGATIVE) mg/dL Urine Glucose (UA) (NEGATIVE) mg/dL Urine Ketones (NEGATIVE) mg/dL Urine Occult Blood (NEGATIVE) Urine Nitrite (NEGATIVE) Urine Bilirubin (NEGATIVE) Urine Urobilinogen (NORMAL) E.U./dL Ur Leukocyte Esterase (NEGATIVE) Urine RBC (0-5) /HPF Urine WBC (0-3) /HPF Ur Squamous Epith Cells (<= Few) Urine Bacteria (None Seen) /HPF Urine Culture Comments 05/08/24 05/07/24 Range/Units 05:00 14:00 WBC 18.0 H (4.8-10.8) x10^3/uL RBC 3.92 L (4.70-6.10) 10^6/uL Hgb 11.4 L (14.0-18.0) g/dL Hct 33.2 L (42.0-52.0) % MCV 84.7 (80.0-94.0) fL MCH 29.1 (27.0-31.0) pg MCHC 34.3 (32.0-36.0) g/dL RDW 15.2 H (12.0-15.0) % Plt Count 221 (130-450) 10^3/uL MPV 10.3 (7.4-11.4) fL Neut # (Auto) 15.5 H (1.5-6.6) 10^3/uL Lymph # (Auto) 1.1 L (1.5-3.5) 10^3/uL [place] # (Auto) 0.9 (0.0-1.0) 10^3/uL Eos # (Auto) 0.1 (0.0-0.7) 10^3/uL Baso # (Auto) 0.0 (0.0-0.1) 10^3/uL Absolute Nucleated RBC 0.00 x10^3/uL Nucleated RBC % 0.0 /100WBC Sodium (135-145) mmol/L Potassium (3.5-4.5) mmol/L Chloride (101-111) mmol/L Carbon Dioxide (21-32) mmol/L Anion Gap (6-13) BUN (6-20) mg/dL Creatinine (0.6-1.3) mg/dL Estimated GFR (MDRD) (>89) Glucose (74-104) mg/dL Calcium (8.5-10.3) mg/dL C-Reactive Protein (<0.5) mg/dL Procalcitonin Immunoas (<0.5) ng/mL Urine Color DARK YELLOW Urine Clarity HAZY (CLEAR) Urine pH 6.0 (5.0-7.5) PH Ur Specific [place] 1.020 (1.002-1.030) Urine Protein 30 H (NEGATIVE) mg/dL Urine Glucose (UA) NEGATIVE (NEGATIVE) mg/dL Urine Ketones NEGATIVE (NEGATIVE) mg/dL Urine Occult Blood LARGE H (NEGATIVE) Urine Nitrite NEGATIVE (NEGATIVE) Urine Bilirubin NEGATIVE (NEGATIVE) Urine Urobilinogen 1 (NORMAL) (NORMAL) E.U./dL Ur Leukocyte Esterase MODERATE H (NEGATIVE) Urine RBC TNTC H (0-5) /HPF Urine WBC >25 H (0-3) /HPF Ur Squamous Epith Cells NONE SEEN (<= Few) Urine Bacteria Few (None Seen) /HPF Urine Culture Comments INDICATED ABX Reporting Has patient been on IV antibiotics over the past 48 hours?: Yes Sepsis Event Note (H) - Evaluation Current Stage of Sepsis: Sepsis Possible source of Sepsis: positive: Genitourinary - Sepsis Criteria Sepsis Criteria: Recorded Heart Rate greater than 90 bpm, Recorded Respiratory Rate greater than 20, WBC count greater than 12,000 or less than 4000, Hematologic: platelets < 100,000; INR > 1.5, or a PTT>60 seconds Assessment/Plan - Problem List (1) Sepsis Impression: Patient with 2 blood culture sets with primary result positive for gram-negative as well as gram-positive cocci in cluster,will continue vancomycin until urine culture available, last blood culture on 05/07/2024 no growth. Still leukocytosis but decrease inflammatory markers with CRP and procalcitonin levels Will continue following up on urine culture and blood cultures CT showing right kidney swelling and inflammation but no abscess formation but a calyceal rupture IV ceftriaxoneChanged to meropenem and vancomycin Blood culture positive for KlebsiellOxytoca, resistant to ampicillin, Final PCR blood culture no growth, 2 preliminary blood culture positive for gram-positive cocci in cluster Follow-up urine cultureShows Klebsiella oxytoca resistant to ampicillin IV hydration Inflammatory markersNoted to be high (2) UTI (urinary tract infection) Conclusion/Plan: Urine culture done on 04 May 2024 shows Klebsiella oxytoca resistant to ampicillin Antibiotic broadened to meropenem and vancomycin Elevated inflammatory markers Repeat UA (3) Nephrolithiasis Conclusion/Plan: Status post urology evaluation appreciated Status post cystoscopy with right ureteral stent placement Further stone treatment as an outpatient dc Continue IV hydrationSince hyponatremia Continue IV antibiotic Continue monitoring creatinine Continue pain management Initiate p.o. diet (4) Hypothyroidism Conclusion/Plan: TSHNormal at 2.12 Continue home dose Synthroid (5) Multiple sclerosis Conclusion/Plan: History of immunomodulatory meds in the past Continue muscle relaxant currently Continue pain management PT OT (6) BPH (benign prostatic hyperplasia) Conclusion/Plan: Continue home dose tamsulosin Status post Boateng by urology to be DC'd with FoleyAs an outpatient (7) Azotemia Conclusion/Plan: Resolved, will DC IV fluids since patient hyponatremic DVT/GI phylaxis: SCD/PPI
[2024-05-09 05:46] LABS: BASOPHILS # (AUTO) 0.1 10^3/uL (0.0-0.1); BASOPHILS % (AUTO) 0.3 %; EOSINOPHILS # (AUTO) 0.1 10^3/uL (0.0-0.7); EOSINOPHILS % (AUTO) 0.7 %; HGB - HEMOGLOBIN 11.5 g/dL (14.0-18.0); LYMPHOCYTES # (AUTO) 1.1 10^3/uL (1.5-3.5); LYMPHOCYTES % (AUTO) 7.4 %; MEAN CORPUSCULAR HEMOGLOBIN 29.2 pg (27.0-31.0); MEAN CORPUSCULAR HGB CONC 34.8 g/dL (32.0-36.0); MEAN CORPUSCULAR VOLUME 83.8 fL (80.0-94.0); MEAN PLATELET VOLUME 10.2 fL (7.4-11.4); MONOCYTES # (AUTO) 0.9 10^3/uL (0.0-1.0); MONOCYTES % (AUTO) 5.8 %; NEUTROPHILS # (AUTO) 12.3 10^3/uL (1.5-6.6); NEUTROPHILS % (AUTO) 83.3 %; PLT - PLATELET COUNT 312 10^3/uL (130-450); RED BLOOD COUNT 3.94 10^6/uL (4.70-6.10); RED CELL DISTRIBUTION WIDTH 14.7 % (12.0-15.0); WHITE BLOOD COUNT 14.7 x10^3/uL (4.8-10.8)
[2024-05-09 05:59] LABS: CALCIUM 7.8 mg/dL (8.5-10.3); CREATININE 0.5 mg/dL (0.6-1.3); POTASSIUM 3.7 mmol/L (3.5-4.5)
[2024-05-09] MEDS: NAPROXEN 250 MG TABLET PO ONE (08:46)
--- NOTE | 2024-05-09 09:11 | PROVIDER PROGRESS NOTE ---
Subjective - Prog Note Date Prog Note Date: 05/09/24 Prog Note Time: 09:09 - Subjective Subjective: Patient supine in bed complaints of low back pain requesting naproxen. Denies fever nausea vomiting or dysuria. Current Medications - Current Medications Current Medications: Active Medications Acetaminophen (Acetaminophen 325 Mg Tablet) 650 mg PO Q4HR PRN PRN Reason: Pain 1 to 4, or Fever Last Admin: 05/07/24 06:30 Dose: 650 mg Hydralazine HCl (Hydralazine Inj 20 Mg/Ml Vial) 10 mg IVP Q6H PRN PRN Reason: Blood Pressure Meropenem 1 gm/ Sodium (Chloride) 100 mls @ 200 mls/hr IV Q8H [facility] Last Admin: 05/09/24 08:46 Dose: 200 mls/hr Levothyroxine Sodium (Levothyroxine 112 Mcg Tablet) 112 mcg PO QDAC [facility] Last Admin: 05/09/24 06:27 Dose: 112 mcg Methocarbamol (Methocarbamol 500 Mg Tablet) 750 mg PO TID PRN PRN Reason: Spasms Last Admin: 05/08/24 08:15 Dose: 750 mg Morphine Sulfate (Morphine 2 Mg/Ml Carpuject) 2 mg IVP Q2HR PRN PRN Reason: Pain 8 to 10 Last Admin: 05/08/24 19:23 Dose: 2 mg Multi-Ingredient Ointment (Zinc Oxide 20% Oint 30 Gm Tube) 1 applic TOP PRN PRN PRN Reason: Skin Care Ondansetron HCl (Ondansetron 4 Mg/2 Ml Vial) 4 mg IVP Q6HR PRN PRN Reason: Nausea / Vomiting Pantoprazole Sodium (Pantoprazole 40 Mg Tablet) 40 mg PO QDAC [facility] Last Admin: 05/09/24 06:27 Dose: 40 mg Senna (Senna 8.6 Mg Tablet) 17.2 mg PO BID [facility] Stop: 05/09/24 21:01 Last Admin: 05/09/24 08:47 Dose: Not Given Sodium Chloride (Sodium Chloride Flush 0.9% 10 Ml Syringe) 10 ml IVP PRN PRN PRN Reason: NEEDED PER PROVIDER ORDERS Sodium Chloride (Sodium Chloride Flush 0.9% 10 Ml Syringe) 10 ml IVP 0100,0900,1700 [facility] Last Admin: 05/09/24 08:47 Dose: 10 ml Tamsulosin HCl (Tamsulosin 0.4 Mg Capsule) 0.8 mg PO DAILY [facility] Last Admin: 05/09/24 08:46 Dose: 0.8 mg Levothyroxine Sodium [Synthroid] 112 mcg PO DAILY 10/12/16 Tamsulosin [Flomax] 0.4 mg PO BID 05/05/24 Objective - Vital Signs/Intake & Output Reviewed Vital Signs: Yes Vital Signs: Vital Signs x48h Temp Pulse Resp BP Pulse Ox 05/09/24 07:50 36.7 C 86 18 140/79 H 95 Intake & Output: Intake & Output 05/06/24 05/07/24 05/08/24 05/09/24 23:59 23:59 23:59 23:59 Intake Total 4140 3343.334 3711.667 350 Output Total 1325 2225 2750 1200 Balance 2815 1118.334 961.669 -850 - Objective General Appearance: positive: No acute distress Eyes Bilateral: positive: EOMI Neck: positive: Trachea midline Respiratory: positive: No respiratory distress, Breath sounds nml Cardiovascular: positive: Regular rate & rhythm, No murmur Abdomen: positive: Non-tender, Nml bowel sounds, No distention. negative: Guarding, Rebound Skin: positive: Warm Extremities: positive: No pedal edema Neurologic/Psychiatric: positive: Oriented x3 - Lab Results Fish Bones: 05/09/24 05:30 05/09/24 05:30 Other Labs: Lab Results x24hrs 05/09/24 05/09/24 05/09/24 Range/Units 05:30 05:30 05:30 WBC (4.8-10.8) x10^3/uL RBC (4.70-6.10) 10^6/uL Hgb (14.0-18.0) g/dL Hct (42.0-52.0) % MCV (80.0-94.0) fL MCH (27.0-31.0) pg MCHC (32.0-36.0) g/dL RDW (12.0-15.0) % Plt Count (130-450) 10^3/uL MPV (7.4-11.4) fL Neut # (Auto) (1.5-6.6) 10^3/uL Lymph # (Auto) (1.5-3.5) 10^3/uL [place] # (Auto) (0.0-1.0) 10^3/uL Eos # (Auto) (0.0-0.7) 10^3/uL Baso # (Auto) (0.0-0.1) 10^3/uL Absolute Nucleated RBC x10^3/uL Nucleated RBC % /100WBC ESR 43 H (0-20) mm/Hr Sodium 131 L (135-145) mmol/L Potassium 3.7 (3.5-4.5) mmol/L Chloride 103 (101-111) mmol/L Carbon Dioxide 23 (21-32) mmol/L Anion Gap 5.0 L (6-13) BUN 17 (6-20) mg/dL Creatinine 0.5 L (0.6-1.3) mg/dL Estimated GFR (MDRD) 160 (>89) Glucose 109 H (74-104) mg/dL Calcium 7.8 L (8.5-10.3) mg/dL C-Reactive Protein 14.7 H (<0.5) mg/dL 05/09/24 Range/Units 05:30 WBC 14.7 H (4.8-10.8) x10^3/uL RBC 3.94 L (4.70-6.10) 10^6/uL Hgb 11.5 L (14.0-18.0) g/dL Hct 33.0 L (42.0-52.0) % MCV 83.8 (80.0-94.0) fL MCH 29.2 (27.0-31.0) pg MCHC 34.8 (32.0-36.0) g/dL RDW 14.7 (12.0-15.0) % Plt Count 312 (130-450) 10^3/uL MPV 10.2 (7.4-11.4) fL Neut # (Auto) 12.3 H (1.5-6.6) 10^3/uL Lymph # (Auto) 1.1 L (1.5-3.5) 10^3/uL [place] # (Auto) 0.9 (0.0-1.0) 10^3/uL Eos # (Auto) 0.1 (0.0-0.7) 10^3/uL Baso # (Auto) 0.1 (0.0-0.1) 10^3/uL Absolute Nucleated RBC 0.00 x10^3/uL Nucleated RBC % 0.0 /100WBC ESR (0-20) mm/Hr Sodium (135-145) mmol/L Potassium (3.5-4.5) mmol/L Chloride (101-111) mmol/L Carbon Dioxide (21-32) mmol/L Anion Gap (6-13) BUN (6-20) mg/dL Creatinine (0.6-1.3) mg/dL Estimated GFR (MDRD) (>89) Glucose (74-104) mg/dL Calcium (8.5-10.3) mg/dL C-Reactive Protein (<0.5) mg/dL ABX Reporting Has patient been on IV antibiotics over the past 48 hours?: Yes Sepsis Event Note (H) - Evaluation Current Stage of Sepsis: Sepsis Possible source of Sepsis: positive: Genitourinary - Sepsis Criteria Sepsis Criteria: Recorded Heart Rate greater than 90 bpm, Recorded Respiratory Rate greater than 20, WBC count greater than 12,000 or less than 4000, Hematologic: platelets < 100,000; INR > 1.5, or a PTT>60 seconds Assessment/Plan - Problem List (1) Sepsis Impression: Patient with 2 blood culture sets with primary result positive for gram-negative as well as gram-positive cocci in cluster,will continue vancomycin until urine culture available, last blood culture on 05/07/2024 no growth. Still leukocytosis but decrease inflammatory markers with CRP and procalcitonin levels Will continue following up on urine culture and blood cultures CT showing right kidney swelling and inflammation but no abscess formation but a calyceal rupture IV ceftriaxoneChanged to meropenem and vancomycin Blood culture positive for KlebsiellOxytoca, resistant to ampicillin, Final PCR blood culture no growth, 2 preliminary blood culture positive for gram-positive cocci in cluster Follow-up urine cultureShows Klebsiella oxytoca resistant to ampicillin Off ofIV hydrationSince hyponatremic Inflammatory markersNoted to be high Discussed with microbiology no Staph aureus but possibility of anaerobic versus contamination regarding the gram-positive cocci in cluster noted, will DC vancomycin initiate Flagyl. And follow-up on blood culture sensitivity. (2) UTI (urinary tract infection) Conclusion/Plan: Urine culture done on 04 May 2024 shows Klebsiella oxytoca resistant to ampicillin Antibiotic broadened to meropenem and vancomycin, Will DC vancomycin as no Staph aureus, Per my discussion with microbiology department Elevated inflammatory markers Repeat UA NegativeCulture (3) Nephrolithiasis Conclusion/Plan: Status post urology evaluation appreciated Status post cystoscopy with right ureteral stent placement Further stone treatment as an outpatient dc Continue IV hydrationSince hyponatremia Continue IV antibiotic Continue monitoring creatinine Continue pain management Initiate p.o. diet (4) Hypothyroidism Conclusion/Plan: TSHNormal at 2.12 Continue home dose Synthroid (5) Multiple sclerosis Conclusion/Plan: History of immunomodulatory meds in the past Continue muscle relaxant currently Continue pain management PT OT (6) BPH (benign prostatic hyperplasia) Conclusion/Plan: Continue home dose tamsulosin Status post Boateng by urology to be DC'd with FoleyAs an outpatient (7) Azotemia Conclusion/Plan: Resolved, will DC IV fluids since patient hyponatremic Will obtain serum Osmo urine Osmo and urine sodium, Normal TSH DVT/GI phylaxis: SCD/PPI
[2024-05-09] MEDS ORDERED: metroNIDAZOLE 500 MG/100 ML 500 MG/100 ML BAG IV SCH (10:00)
--- NOTE | 2024-05-09 15:31 | PROVIDER PROGRESS NOTE ---
Subjective - General Admit Date: 05/05/24 Procedure Date: 05/05/24 Post Op Days: 4 Procedure Performed: Cystoscopy, right ureteral stent, right retrograde pyelogram - Review of Systems Drain Type: camacho Drain Output Description: CYU General: positive: Other (No issues overnight besides his persistent back pain) Objective - Patient Data Vital Signs: Vital Signs x48h Temp Pulse Resp BP Pulse Ox 05/09/24 07:50 36.7 C 86 18 140/79 H 95 Weight: Weight 05/07/24 05/08/24 05/09/24 23:59 23:59 23:59 Weight (kg) 77.5 kg Intake & Output: Intake and Output Totals x24h 05/07/24 05/08/24 05/09/24 23:59 23:59 23:59 Intake Total 3343.334 3711.667 1410 Output Total 2225 2750 2400 Balance 1118.334 961.667 -990 - Lab Results Lab Results: 05/09/24 05:30 05/09/24 05:30 Other Lab Results: Lab Results x24hrs 05/09/24 05/09/24 05/09/24 Range/Units 09:35 05:30 05:30 WBC (4.8-10.8) x10^3/uL RBC (4.70-6.10) 10^6/uL Hgb (14.0-18.0) g/dL Hct (42.0-52.0) % MCV (80.0-94.0) fL MCH (27.0-31.0) pg MCHC (32.0-36.0) g/dL RDW (12.0-15.0) % Plt Count (130-450) 10^3/uL MPV (7.4-11.4) fL Neut # (Auto) (1.5-6.6) 10^3/uL Lymph # (Auto) (1.5-3.5) 10^3/uL [place] # (Auto) (0.0-1.0) 10^3/uL Eos # (Auto) (0.0-0.7) 10^3/uL Baso # (Auto) (0.0-0.1) 10^3/uL Absolute Nucleated RBC x10^3/uL Nucleated RBC % /100WBC ESR 43 H (0-20) mm/Hr Sodium (135-145) mmol/L Potassium (3.5-4.5) mmol/L Chloride (101-111) mmol/L Carbon Dioxide (21-32) mmol/L Anion Gap (6-13) BUN (6-20) mg/dL Creatinine (0.6-1.3) mg/dL Estimated GFR (MDRD) (>89) Glucose (74-104) mg/dL Calcium (8.5-10.3) mg/dL C-Reactive Protein 14.7 H (<0.5) mg/dL Urine Sodium 93.0 mmol/L 05/09/24 05/09/24 Range/Units 05:30 05:30 WBC 14.7 H (4.8-10.8) x10^3/uL RBC 3.94 L (4.70-6.10) 10^6/uL Hgb 11.5 L (14.0-18.0) g/dL Hct 33.0 L (42.0-52.0) % MCV 83.8 (80.0-94.0) fL MCH 29.2 (27.0-31.0) pg MCHC 34.8 (32.0-36.0) g/dL RDW 14.7 (12.0-15.0) % Plt Count 312 (130-450) 10^3/uL MPV 10.2 (7.4-11.4) fL Neut # (Auto) 12.3 H (1.5-6.6) 10^3/uL Lymph # (Auto) 1.1 L (1.5-3.5) 10^3/uL [place] # (Auto) 0.9 (0.0-1.0) 10^3/uL Eos # (Auto) 0.1 (0.0-0.7) 10^3/uL Baso # (Auto) 0.1 (0.0-0.1) 10^3/uL Absolute Nucleated RBC 0.00 x10^3/uL Nucleated RBC % 0.0 /100WBC ESR (0-20) mm/Hr Sodium 131 L (135-145) mmol/L Potassium 3.7 (3.5-4.5) mmol/L Chloride 103 (101-111) mmol/L Carbon Dioxide 23 (21-32) mmol/L Anion Gap 5.0 L (6-13) BUN 17 (6-20) mg/dL Creatinine 0.5 L (0.6-1.3) mg/dL Estimated GFR (MDRD) 160 (>89) Glucose 109 H (74-104) mg/dL Calcium 7.8 L (8.5-10.3) mg/dL C-Reactive Protein (<0.5) mg/dL Urine Sodium mmol/L - Current Medications Current Medications: Current Medications Generic Name Dose Route Start Last Admin Trade Name Freq PRN Reason Stop Dose Admin Acetaminophen 650 mg 05/06/24 23:56 05/07/24 06:30 Acetaminophen 325 Mg Tablet PO 650 mg Q4HR PRN Administration Pain 1 to 4, or Fever Meropenem 1 gm/ Sodium 100 mls @ 200 mls/hr 05/07/24 08:00 05/09/24 09:16 Chloride IV Infused Q8H [facility] Infusion Levothyroxine Sodium 112 mcg 05/07/24 07:00 05/09/24 06:27 Levothyroxine 112 Mcg Tablet PO 112 mcg QDAC [facility] Administration Methocarbamol 750 mg 05/05/24 15:40 05/08/24 08:15 Methocarbamol 500 Mg Tablet PO 750 mg TID PRN Administration Spasms Morphine Sulfate 2 mg 05/05/24 15:22 05/09/24 14:51 Morphine 2 Mg/Ml Carpuject IVP 2 mg Q2HR PRN Administration Pain 8 to 10 Pantoprazole Sodium 40 mg 05/07/24 07:00 05/09/24 06:27 Pantoprazole 40 Mg Tablet PO 40 mg QDAC [facility] Administration Senna 17.2 mg 05/08/24 10:00 05/09/24 08:47 Senna 8.6 Mg Tablet PO 05/09/24 21:01 Not Given BID [facility] Sodium Chloride 10 ml 05/05/24 17:00 05/09/24 08:47 Sodium Chloride Flush 0.9% 10 Ml Syringe IVP 10 ml 0100,0900,1700 [facility] Administration Tamsulosin HCl 0.8 mg 05/06/24 09:00 05/09/24 08:46 Tamsulosin 0.4 Mg Capsule PO 0.8 mg DAILY [facility] Administration - Physical Exam Comments/Other: afebrile hds overnight Switched off of vancomycin to meropenem monotherapy Impression/Plan - Problem List Problem List: Dr Jauregui is recovering well now. leukocytosis is improving. Afebrile. I recommend 14 day total course of antibiotics. meropenem is reasonable but oral formulation would be ideal. I recommend keeping catheter in for discharge I will have him followup with me in a few weeks to discuss definitive stone management Urology signing off, call with questions
--- NOTE | 2024-05-09 21:10 | CT Report ---
PROCEDURE: Pelvis WO INDICATIONS: low back pain TECHNIQUE: Noncontrast 3 mm axial sections acquired through the bony pelvis, with coronal and sagittal reformatt ing. For radiation dose reduction, the following was used: automated exposure control, adjustment of mA and/or kV according to patient size. COMPARISON: CT abdomen and pelvis with contrast 05/07/2024 FINDINGS: Image quality: Excellent. Bones: Diffuse osseous demineralization, which limits the sensitivity of fracture detection. No fract ure or dislocation. Joints: Multilevel intervertebral disc height loss of the visualized lower lumbar spine along with en dplate sclerosis and osteophyte formation. Multilevel facet arthropathy at the lower lumbar spine. Muscles: Mild diffuse muscle atrophy. Tendons: Enthesopathy of the bilateral hamstring tendon origins at the initial tuberosities. Vessels: Mild aortoiliac atherosclerosis. Lymph nodes: No bilateral inguinal or visualize retroperitoneal lymphadenopathy Other soft tissues: Right nephrostomy tube with the pigtail at the ureterovesicular junction with leeanna dentified abnormal contour of the right kidney (4/). Decompressed urinary bladder with a Boateng krystyna ter. Mild anasarca along the flank regions. Fluid in the distal colon, which can be seen in the setti ng of diarrhea. Small volume pelvic ascites. IMPRESSION: 1.Multilevel lumbar osteoarthritis. 2.No fracture or dislocation. Reviewed by: Ronan Mendez MD on 05/09/2024 9:09 PM PDT Approved by: Ronan Mendez MD on 05/09/2024 9:09 PM PDT Station ID: [id number]
--- NOTE | 2024-05-09 22:03 | MRI Report ---
PROCEDURE: Lumbar Spine WO INDICATIONS: Low back pain TECHNIQUE: Noncontrast sagittal T1 spin echo and T2 fast echo, sagittal STIR, axial T1 and T2 fast spin echo thr ough the lumbar spine. In cases with scoliosis, additional coronal T2 fast spin echo may be performe d. COMPARISON: CT of abdomen and pelvis dated 05/07/2024 05/04/2024. FINDINGS: Image quality: Excellent. Alignment and Curvature: There is normal bony alignment. Bone Marrow: Heterogeneous marrow signal throughout lumbar spine is seen. No gross marrow edema. No a cute vertebral body compression fractures. Spinal Cord: Conus medullaris terminates at the L1 level. Visualized cord demonstrates normal signa l and size. Paraspinous Soft Tissues: No paravertebral masses. T12-L1: Disc desiccation. Diffuse disc bulge and bilateral facet arthrosis with [id number] viet tral canal stenosis and mild right-sided neural foraminal narrowing. L1-L2: Disc desiccation and loss of disc height. Broad-based disc bulge and bilateral facet arthro sis causing moderate central canal stenosis and moderate left worse than right bilateral neuroforamin al narrowing. Bulging disc likely contacting bilateral L1 nerve roots. L2-L3: Disc desiccation and loss of disc height. Broad-based disc bulge and bilateral facet arthro sis with moderate central canal stenosis, severe left-sided neural foraminal narrowing and moderate r ight-sided neural foraminal narrowing. There is compression of bilateral L2 nerve roots. L3-L4: Disc desiccation and loss of disc height. Broad-based disc bulge and bilateral facet arthros is causing moderate central canal stenosis and severe bilateral neural foraminal narrowing. There is compression of bilateral L3 nerve roots. L4-L5: Loss of disc height and disc desiccation. Broad-based disc bulge and bilateral facet arthros is with hypertrophy of ligamentum flavum causing severe central canal stenosis and bilateral neural f oraminal narrowing. There is likely compression of both L4 and L5 nerve roots. L5-S1: Disc height and disc desiccation. Diffuse disc bulge and bilateral facet arthrosis with hype rtrophy of ligamentum flavum causing mild central canal stenosis and moderate to severe bilateral master ral foraminal narrowing with likely compression of bilateral L5 nerve roots. IMPRESSION: 1. Heterogeneous marrow signal likely represent hematopoietic marrow. No definite marrow edema. No ac thelma vertebral body compression fracture. 2. 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 Reviewed by: Gerson Miguel MD on 05/09/2024 10:02 PM PDT Approved by: Gerson Miguel MD on 05/09/2024 10:02 PM PDT Station ID: [id number]
[2024-05-10] MEDS: ZINC OXIDE 20% OINT 30 GM TUBE TOP PRN (02:34)
[2024-05-10 05:34] LABS: BASOPHILS % (AUTO) 0.2 %; EOSINOPHILS # (AUTO) 0.3 10^3/uL (0.0-0.7); EOSINOPHILS % (AUTO) 2.2 %; HCT - HEMATOCRIT 32.4 % (42.0-52.0); HGB - HEMOGLOBIN 11.2 g/dL (14.0-18.0); LYMPHOCYTES % (AUTO) 7.9 %; MEAN CORPUSCULAR HEMOGLOBIN 29.2 pg (27.0-31.0); MEAN CORPUSCULAR HGB CONC 34.6 g/dL (32.0-36.0); MEAN CORPUSCULAR VOLUME 84.6 fL (80.0-94.0); MEAN PLATELET VOLUME 10.1 fL (7.4-11.4); MONOCYTES # (AUTO) 0.6 10^3/uL (0.0-1.0); MONOCYTES % (AUTO) 4.4 %; NEUTROPHILS # (AUTO) 10.7 10^3/uL (1.5-6.6); PLT - PLATELET COUNT 424 10^3/uL (130-450); RED BLOOD COUNT 3.83 10^6/uL (4.70-6.10); RED CELL DISTRIBUTION WIDTH 14.7 % (12.0-15.0); WHITE BLOOD COUNT 12.9 x10^3/uL (4.8-10.8)
[2024-05-10 05:48] LABS: CALCIUM 7.9 mg/dL (8.5-10.3); CREATININE 0.5 mg/dL (0.6-1.3); CRP - C-REACTIVE PROTEIN 13.8 mg/dL (<0.5); POTASSIUM 3.6 mmol/L (3.5-4.5)
--- NOTE | 2024-05-10 08:36 | PROVIDER PROGRESS NOTE ---
Subjective - Prog Note Date Prog Note Date: 05/10/24 Prog Note Time: 08:32 - Subjective Subjective: Patient supine in bed in no acute distress, pain controlled Current Medications - Current Medications Current Medications: Active Medications Acetaminophen (Acetaminophen 325 Mg Tablet) 650 mg PO Q4HR PRN PRN Reason: Pain 1 to 4, or Fever Last Admin: 05/07/24 06:30 Dose: 650 mg Hydralazine HCl (Hydralazine Inj 20 Mg/Ml Vial) 10 mg IVP Q6H PRN PRN Reason: Blood Pressure Meropenem 1 gm/ Sodium (Chloride) 100 mls @ 200 mls/hr IV Q8H [facility] Last Infusion: 05/10/24 00:30 Dose: Infused Levothyroxine Sodium (Levothyroxine 112 Mcg Tablet) 112 mcg PO QDAC [facility] Last Admin: 05/10/24 06:00 Dose: 112 mcg Methocarbamol (Methocarbamol 500 Mg Tablet) 750 mg PO TID PRN PRN Reason: Spasms Last Admin: 05/08/24 08:15 Dose: 750 mg Morphine Sulfate (Morphine 2 Mg/Ml Carpuject) 2 mg IVP Q2HR PRN PRN Reason: Pain 8 to 10 Last Admin: 05/10/24 02:32 Dose: 2 mg Multi-Ingredient Ointment (Zinc Oxide 20% Oint 30 Gm Tube) 1 applic TOP PRN PRN PRN Reason: Skin Care Last Admin: 05/10/24 02:34 Dose: 1 applic Ondansetron HCl (Ondansetron 4 Mg/2 Ml Vial) 4 mg IVP Q6HR PRN PRN Reason: Nausea / Vomiting Pantoprazole Sodium (Pantoprazole 40 Mg Tablet) 40 mg PO QDAC [facility] Last Admin: 05/10/24 06:00 Dose: 40 mg Sodium Chloride (Sodium Chloride Flush 0.9% 10 Ml Syringe) 10 ml IVP PRN PRN PRN Reason: NEEDED PER PROVIDER ORDERS Sodium Chloride (Sodium Chloride Flush 0.9% 10 Ml Syringe) 10 ml IVP 0100,0900,1700 [facility] Last Admin: 05/09/24 23:53 Dose: 10 ml Tamsulosin HCl (Tamsulosin 0.4 Mg Capsule) 0.8 mg PO DAILY [facility] Last Admin: 05/09/24 08:46 Dose: 0.8 mg Levothyroxine Sodium [Synthroid] 112 mcg PO DAILY 10/12/16 Tamsulosin [Flomax] 0.4 mg PO BID 05/05/24 Objective - Vital Signs/Intake & Output Reviewed Vital Signs: Yes Intake & Output: Intake & Output 05/07/24 05/08/24 05/09/24 05/10/24 23:59 23:59 23:59 23:59 Intake Total 3343.334 3711.667 2080 450 Output Total 2229 2750 6400 750 Balance 1118.334 961.668 -4320 -300 - Objective General Appearance: positive: No acute distress Eyes Bilateral: positive: EOMI Neck: positive: Trachea midline Respiratory: positive: No respiratory distress, Breath sounds nml Cardiovascular: positive: Regular rate & rhythm, No murmur Abdomen: positive: Non-tender, Nml bowel sounds, No distention. negative: Guarding, Rebound Skin: positive: Warm Extremities: positive: No pedal edema - Lab Results Fish Bones: 05/10/24 05:11 05/10/24 05:11 Other Labs: Lab Results x24hrs 05/10/24 05/10/24 05/10/24 Range/Units 05:11 05:11 05:11 WBC 12.9 H (4.8-10.8) x10^3/uL RBC 3.83 L (4.70-6.10) 10^6/uL Hgb 11.2 L (14.0-18.0) g/dL Hct 32.4 L (42.0-52.0) % MCV 84.6 (80.0-94.0) fL MCH 29.2 (27.0-31.0) pg MCHC 34.6 (32.0-36.0) g/dL RDW 14.7 (12.0-15.0) % Plt Count 424 (130-450) 10^3/uL MPV 10.1 (7.4-11.4) fL Neut # (Auto) 10.7 H (1.5-6.6) 10^3/uL Lymph # (Auto) 1.0 L (1.5-3.5) 10^3/uL [place] # (Auto) 0.6 (0.0-1.0) 10^3/uL Eos # (Auto) 0.3 (0.0-0.7) 10^3/uL Baso # (Auto) 0.0 (0.0-0.1) 10^3/uL Absolute Nucleated RBC 0.00 x10^3/uL Nucleated RBC % 0.0 /100WBC ESR 34 H (0-20) mm/Hr Sodium 131 L (135-145) mmol/L Potassium 3.6 (3.5-4.5) mmol/L Chloride 102 (101-111) mmol/L Carbon Dioxide 25 (21-32) mmol/L Anion Gap 4.0 L (6-13) BUN 16 (6-20) mg/dL Creatinine 0.5 L (0.6-1.3) mg/dL Estimated GFR (MDRD) 160 (>89) Glucose 102 (74-104) mg/dL Calcium 7.9 L (8.5-10.3) mg/dL C-Reactive Protein 13.8 H (<0.5) mg/dL Urine Sodium mmol/L 05/09/24 Range/Units 09:35 WBC (4.8-10.8) x10^3/uL RBC (4.70-6.10) 10^6/uL Hgb (14.0-18.0) g/dL Hct (42.0-52.0) % MCV (80.0-94.0) fL MCH (27.0-31.0) pg MCHC (32.0-36.0) g/dL RDW (12.0-15.0) % Plt Count (130-450) 10^3/uL MPV (7.4-11.4) fL Neut # (Auto) (1.5-6.6) 10^3/uL Lymph # (Auto) (1.5-3.5) 10^3/uL [place] # (Auto) (0.0-1.0) 10^3/uL Eos # (Auto) (0.0-0.7) 10^3/uL Baso # (Auto) (0.0-0.1) 10^3/uL Absolute Nucleated RBC x10^3/uL Nucleated RBC % /100WBC ESR (0-20) mm/Hr Sodium (135-145) mmol/L Potassium (3.5-4.5) mmol/L Chloride (101-111) mmol/L Carbon Dioxide (21-32) mmol/L Anion Gap (6-13) BUN (6-20) mg/dL Creatinine (0.6-1.3) mg/dL Estimated GFR (MDRD) (>89) Glucose (74-104) mg/dL Calcium (8.5-10.3) mg/dL C-Reactive Protein (<0.5) mg/dL Urine Sodium 93.0 mmol/L ABX Reporting Has patient been on IV antibiotics over the past 48 hours?: Yes Sepsis Event Note (H) - Evaluation Current Stage of Sepsis: Sepsis Possible source of Sepsis: positive: Genitourinary - Sepsis Criteria Sepsis Criteria: Recorded Heart Rate greater than 90 bpm, Recorded Respiratory Rate greater than 20, WBC count greater than 12,000 or less than 4000, Hematologic: platelets < 100,000; INR > 1.5, or a PTT>60 seconds Assessment/Plan - Problem List (1) Sepsis Impression: Patient with 2 blood culture sets with primary result positive for gram-negative as well as gram-positive cocci in cluster,will continue vancomycin until urine culture available, last blood culture on 05/07/2024 no growth. Still leukocytosis but decrease inflammatory markers with CRP and procalcitonin levels Will continue following up on urine culture and blood cultures CT showing right kidney swelling and inflammation but no abscess formation but a calyceal rupture IV ceftriaxoneChanged to meropenem and vancomycin Blood culture positive for KlebsiellOxytoca, resistant to ampicillin, Final PCR blood culture no growth, 2 preliminary blood culture positive for gram-positive cocci in cluster Follow-up urine cultureShows Klebsiella oxytoca resistant to ampicillin Off ofIV hydrationSince hyponatremic Inflammatory markersNoted to be high Discussed with microbiology no Staph aureus but possibility of anaerobic versus contamination regarding the gram-positive cocci in cluster noted, will DC vancomycin initiate Flagyl. And follow-up on blood culture sensitivity. Continue meropenem as it covers anaerobes, will await final blood cultures sensitivity, 14 days total of antibiotic. (2) UTI (urinary tract infection) Conclusion/Plan: Urine culture done on 04 May 2024 shows Klebsiella oxytoca resistant to ampicillin Antibiotic broadened to meropenem and vancomycin, Will DC vancomycin as no Staph aureus, Per my discussion with microbiology department Elevated inflammatory markers Repeat UA NegativeCulture (3) Nephrolithiasis Conclusion/Plan: Status post urology evaluation appreciated Status post cystoscopy with right ureteral stent placement Further stone treatment as an outpatient dc Continue IV hydrationSince hyponatremia Continue IV antibiotic Continue monitoring creatinine Continue pain management Initiate p.o. diet (4) Hypothyroidism Conclusion/Plan: TSHNormal at 2.12 Continue home dose Synthroid (5) Multiple sclerosis Conclusion/Plan: History of immunomodulatory meds in the past Continue muscle relaxant currently Continue pain management PT OT (6) BPH (benign prostatic hyperplasia) Conclusion/Plan: Continue home dose tamsulosin Status post Boateng by urology to be DC'd with FoleyAs an outpatient (7) Azotemia Conclusion/Plan: Resolved, will DC IV fluids since patient hyponatremic f/u serum Osmo urine Osmo and urine sodium, Normal TSH DVT/GI phylaxis: SCD/PPI
[2024-05-11 05:08] LABS: BASOPHILS % (AUTO) 0.4 %; EOSINOPHILS # (AUTO) 0.3 10^3/uL (0.0-0.7); EOSINOPHILS % (AUTO) 2.4 %; HGB - HEMOGLOBIN 10.6 g/dL (14.0-18.0); LYMPHOCYTES % (AUTO) 9.2 %; MEAN CORPUSCULAR HGB CONC 34.2 g/dL (32.0-36.0); MEAN CORPUSCULAR VOLUME 84.9 fL (80.0-94.0); MEAN PLATELET VOLUME 9.9 fL (7.4-11.4); MONOCYTES # (AUTO) 0.7 10^3/uL (0.0-1.0); MONOCYTES % (AUTO) 6.7 %; NEUTROPHILS # (AUTO) 8.6 10^3/uL (1.5-6.6); PLT - PLATELET COUNT 499 10^3/uL (130-450); RED BLOOD COUNT 3.65 10^6/uL (4.70-6.10); RED CELL DISTRIBUTION WIDTH 14.6 % (12.0-15.0)
[2024-05-11 05:17] LABS: CALCIUM 7.9 mg/dL (8.5-10.3); CREATININE 0.5 mg/dL (0.6-1.3); POTASSIUM 3.6 mmol/L (3.5-4.5)
--- NOTE | 2024-05-11 09:28 | PROVIDER PROGRESS NOTE ---
Subjective - Prog Note Date Prog Note Date: 05/11/24 (n) Prog Note Time: 09:23 - Subjective Subjective: Patient supine in bed in no acute distress currently denies any acute pain. Current Medications - Current Medications Current Medications: Active Medications Acetaminophen (Acetaminophen 325 Mg Tablet) 650 mg PO Q4HR PRN PRN Reason: Pain 1 to 4, or Fever Last Admin: 05/07/24 06:30 Dose: 650 mg Hydralazine HCl (Hydralazine Inj 20 Mg/Ml Vial) 10 mg IVP Q6H PRN PRN Reason: Blood Pressure Meropenem 1 gm/ Sodium (Chloride) 100 mls @ 200 mls/hr IV Q8H [facility] Last Admin: 05/11/24 08:12 Dose: 200 mls/hr Levothyroxine Sodium (Levothyroxine 112 Mcg Tablet) 112 mcg PO QDAC [facility] Last Admin: 05/11/24 06:13 Dose: 112 mcg Methocarbamol (Methocarbamol 500 Mg Tablet) 750 mg PO TID PRN PRN Reason: Spasms Last Admin: 05/08/24 08:15 Dose: 750 mg Morphine Sulfate (Morphine 2 Mg/Ml Carpuject) 2 mg IVP Q2HR PRN PRN Reason: Pain 8 to 10 Last Admin: 05/11/24 06:14 Dose: 2 mg Multi-Ingredient Ointment (Zinc Oxide 20% Oint 30 Gm Tube) 1 applic TOP PRN PRN PRN Reason: Skin Care Last Admin: 05/10/24 02:34 Dose: 1 applic Ondansetron HCl (Ondansetron 4 Mg/2 Ml Vial) 4 mg IVP Q6HR PRN PRN Reason: Nausea / Vomiting Pantoprazole Sodium (Pantoprazole 40 Mg Tablet) 40 mg PO QDAC [facility] Last Admin: 05/11/24 06:13 Dose: 40 mg Sodium Chloride (Sodium Chloride Flush 0.9% 10 Ml Syringe) 10 ml IVP PRN PRN PRN Reason: NEEDED PER PROVIDER ORDERS Sodium Chloride (Sodium Chloride Flush 0.9% 10 Ml Syringe) 10 ml IVP 0100,0900,1700 [facility] Last Admin: 05/11/24 08:12 Dose: 10 ml Tamsulosin HCl (Tamsulosin 0.4 Mg Capsule) 0.8 mg PO DAILY [facility] Last Admin: 05/11/24 08:12 Dose: 0.8 mg Levothyroxine Sodium [Synthroid] 112 mcg PO DAILY 10/12/16 Tamsulosin [Flomax] 0.4 mg PO BID 05/05/24 Objective - Vital Signs/Intake & Output Reviewed Vital Signs: Yes Intake & Output: Intake & Output 05/08/24 05/09/24 05/10/24 05/11/24 23:59 23:59 23:59 23:59 Intake Total 3711.667 2080 1590 400 Output Total 2750 6400 2875 700 Balance 961.667 -4320 -1285 -300 - Objective General Appearance: positive: No acute distress Eyes Bilateral: positive: PERRL ENT: positive: No signs of dehydration Neck: positive: Trachea midline Respiratory: positive: No respiratory distress, Breath sounds nml Cardiovascular: positive: Regular rate & rhythm, No murmur Abdomen: positive: Non-tender, Nml bowel sounds, No distention. negative: Guarding, Rebound Skin: positive: Warm Extremities: positive: No pedal edema Neurologic/Psychiatric: positive: Oriented x3, Motor nml - Lab Results Fish Bones: 05/11/24 04:31 05/11/24 04:31 Other Labs: Lab Results x24hrs 05/11/24 05/11/24 05/11/24 Range/Units 04:31 04:31 04:31 WBC 11.0 H (4.8-10.8) x10^3/uL RBC 3.65 L (4.70-6.10) 10^6/uL Hgb 10.6 L (14.0-18.0) g/dL Hct 31.0 L (42.0-52.0) % MCV 84.9 (80.0-94.0) fL MCH 29.0 (27.0-31.0) pg MCHC 34.2 (32.0-36.0) g/dL RDW 14.6 (12.0-15.0) % Plt Count 499 H (130-450) 10^3/uL MPV 9.9 (7.4-11.4) fL Neut # (Auto) 8.6 H (1.5-6.6) 10^3/uL Lymph # (Auto) 1.0 L (1.5-3.5) 10^3/uL [place] # (Auto) 0.7 (0.0-1.0) 10^3/uL Eos # (Auto) 0.3 (0.0-0.7) 10^3/uL Baso # (Auto) 0.0 (0.0-0.1) 10^3/uL Absolute Nucleated RBC 0.00 x10^3/uL Nucleated RBC % 0.0 /100WBC Sodium 129 L (135-145) mmol/L Potassium 3.6 (3.5-4.5) mmol/L Chloride 99 L (101-111) mmol/L Carbon Dioxide 26 (21-32) mmol/L Anion Gap 4.0 L (6-13) BUN 16 (6-20) mg/dL Creatinine 0.5 L (0.6-1.3) mg/dL Estimated GFR (MDRD) 160 (>89) Glucose 102 (74-104) mg/dL Calcium 7.9 L (8.5-10.3) mg/dL C-Reactive Protein 12.7 H (<0.5) mg/dL ABX Reporting Has patient been on IV antibiotics over the past 48 hours?: Yes Sepsis Event Note (H) - Evaluation Current Stage of Sepsis: Sepsis Possible source of Sepsis: positive: Genitourinary - Sepsis Criteria Sepsis Criteria: Recorded Heart Rate greater than 90 bpm, Recorded Respiratory Rate greater than 20, WBC count greater than 12,000 or less than 4000, Hematologic: platelets < 100,000; INR > 1.5, or a PTT>60 seconds Assessment/Plan - Problem List (1) Sepsis Impression: Patient with 2 blood culture sets with primary result positive for gram-negative as well as gram-positive cocci in cluster,will continue vancomycin until urine culture available, last blood culture on 05/07/2024 no growth. Still leukocytosis but decrease inflammatory markers with CRP and procalcitonin levels Will continue following up on urine culture and blood cultures CT showing right kidney swelling and inflammation but no abscess formation but a calyceal rupture IV ceftriaxoneChanged to meropenem and vancomycin Blood culture positive for KlebsiellOxytoca, resistant to ampicillin, Final PCR blood culture no growth, 2 preliminary blood culture positive for gram-positive cocci in cluster Follow-up urine cultureShows Klebsiella oxytoca resistant to ampicillin Off ofIV hydrationSince hyponatremic Inflammatory markersNoted to be high Discussed with microbiology no Staph aureus but possibility of anaerobic versus contamination regarding the gram-positive cocci in cluster noted, will DC vancomycin initiate Flagyl. And follow-up on blood culture sensitivity. Will switch meropenem to p.o. Levaquin based on sensitivity and currently WBC increasing inflammatory marker decreasing and patient expected to be discharged to SNF. (2) UTI (urinary tract infection) Conclusion/Plan: Urine culture done on 04 May 2024 shows Klebsiella oxytoca resistant to ampicillin Antibiotic broadened to meropenem and vancomycin, Will DC vancomycin as no Staph aureus, Per my discussion with microbiology department Elevated inflammatory markers Repeat UA NegativeCulture (3) Nephrolithiasis Conclusion/Plan: Status post urology evaluation appreciated Status post cystoscopy with right ureteral stent placement Further stone treatment as an outpatient dc Continue IV hydrationSince hyponatremia Change IV antibiotic meropenem to p.o. Levaquin today possible discharge to SNF today Continue monitoring creatinine Continue pain management Initiate p.o. diet (4) Hypothyroidism Conclusion/Plan: TSHNormal at 2.12 Continue home dose Synthroid (5) Multiple sclerosis Conclusion/Plan: History of immunomodulatory meds in the past Continue muscle relaxant currently Continue pain management PT OT Will change IV morphine to p.o. narcotic since patient going to SNF Initiate Colace (6) BPH (benign prostatic hyperplasia) Conclusion/Plan: Continue home dose tamsulosin Status post [place] by urology to be DC'd with FoleyAs an outpatient (7) Azotemia Conclusion/Plan: Resolved, will DC IV fluids since patient hyponatremic f/u serum Osmo urine Osmo and urine sodium, Normal TSHAwaiting sodiums studies suspect SIADH DVT/GI phylaxis: SCD/PPI
[2024-05-11] MEDS ORDERED: levoFLOXacin 250 MG TABLET PO SCH (10:00)
[2024-05-11] MEDS: DOCUSATE SODIUM 100 MG CAPSULE PO SCH (11:31)
[2024-05-11] MEDS: levoFLOXacin 250 MG TABLET PO SCH (14:11)
[2024-05-11] MEDS: SACCHAROMYCES BOULARDII 250 MG CAPSULE PO SCH (18:13)
[2024-05-11] MEDS: MULTIVITAMIN W/MINERALS TABLET PO SCH (18:17)
[2024-05-11 19:07] LABS: OSMOLALITY 285 mOsmol/kg (280-301)
[2024-05-11 20:08] LABS: OSMOLALITY URINE 410 mOsmol/kg (.)
[2024-05-12 06:06] LABS: BASOPHILS % (AUTO) 0.4 %; EOSINOPHILS # (AUTO) 0.2 10^3/uL (0.0-0.7); EOSINOPHILS % (AUTO) 1.5 %; HCT - HEMATOCRIT 32.2 % (42.0-52.0); HGB - HEMOGLOBIN 10.9 g/dL (14.0-18.0); LYMPHOCYTES % (AUTO) 9.8 %; MEAN CORPUSCULAR HGB CONC 33.9 g/dL (32.0-36.0); MEAN CORPUSCULAR VOLUME 85.6 fL (80.0-94.0); MEAN PLATELET VOLUME 9.7 fL (7.4-11.4); MONOCYTES # (AUTO) 0.7 10^3/uL (0.0-1.0); MONOCYTES % (AUTO) 7.1 %; NEUTROPHILS # (AUTO) 7.7 10^3/uL (1.5-6.6); NEUTROPHILS % (AUTO) 79.1 %; PLT - PLATELET COUNT 626 10^3/uL (130-450); RED BLOOD COUNT 3.76 10^6/uL (4.70-6.10); RED CELL DISTRIBUTION WIDTH 14.6 % (12.0-15.0); WHITE BLOOD COUNT 9.7 x10^3/uL (4.8-10.8)
[2024-05-12] MEDS: HYDROcod/ACETAM 5/325 MG TABLET PO PRN (06:06)
[2024-05-12 06:18] LABS: CALCIUM 8.3 mg/dL (8.5-10.3); CREATININE 0.5 mg/dL (0.6-1.3); POTASSIUM 3.6 mmol/L (3.5-4.5)
--- NOTE | 2024-05-12 11:52 | PROVIDER PROGRESS NOTE ---
Subjective - Prog Note Date Prog Note Date: 05/12/24 Prog Note Time: 11:49 - Subjective Subjective: Patient is supine in bed no nausea no vomiting no acute pain now Current Medications - Current Medications Current Medications: Active Medications Acetaminophen (Acetaminophen 325 Mg Tablet) 650 mg PO Q4HR PRN PRN Reason: Pain 1 to 4, or Fever Last Admin: 05/07/24 06:30 Dose: 650 mg Hydrocodone Bitart/Acetaminophen (Hydrocod/Acetam 5/325 Mg Tablet) 1 tab PO Q4HR PRN PRN Reason: Moderate Pain (Level 4-6) Last Admin: 05/12/24 06:06 Dose: 1 tab Docusate Sodium (Docusate Sodium 100 Mg Capsule) 100 mg PO DAILY [facility] Last Admin: 05/12/24 07:18 Dose: Not Given Hydralazine HCl (Hydralazine Inj 20 Mg/Ml Vial) 10 mg IVP Q6H PRN PRN Reason: Blood Pressure Levofloxacin (Levofloxacin 250 Mg Tablet) 750 mg PO DAILY [facility] Last Admin: 05/12/24 08:24 Dose: 750 mg Levothyroxine Sodium (Levothyroxine 112 Mcg Tablet) 112 mcg PO QDAC [facility] Last Admin: 05/12/24 06:06 Dose: 112 mcg Methocarbamol (Methocarbamol 500 Mg Tablet) 750 mg PO TID PRN PRN Reason: Spasms Last Admin: 05/08/24 08:15 Dose: 750 mg Multi-Ingredient Ointment (Zinc Oxide 20% Oint 30 Gm Tube) 1 applic TOP PRN PRN PRN Reason: Skin Care Last Admin: 05/10/24 02:34 Dose: 1 applic Multivitamins/Minerals (Multivitamin W/Minerals Tablet) 1 tab PO DAILYWM [facility] Last Admin: 05/12/24 08:24 Dose: 1 tab Ondansetron HCl (Ondansetron 4 Mg/2 Ml Vial) 4 mg IVP Q6HR PRN PRN Reason: Nausea / Vomiting Pantoprazole Sodium (Pantoprazole 40 Mg Tablet) 40 mg PO QDAC [facility] Last Admin: 05/12/24 06:06 Dose: 40 mg Saccharomyces Boulardii (Saccharomyces Boulardii 250 Mg Capsule) 250 mg PO BIDWM [facility] Last Admin: 05/12/24 08:24 Dose: 250 mg Sodium Chloride (Sodium Chloride Flush 0.9% 10 Ml Syringe) 10 ml IVP PRN PRN PRN Reason: NEEDED PER PROVIDER ORDERS Sodium Chloride (Sodium Chloride Flush 0.9% 10 Ml Syringe) 10 ml IVP 0100,0900,1700 [facility] Last Admin: 05/12/24 08:24 Dose: 10 ml Tamsulosin HCl (Tamsulosin 0.4 Mg Capsule) 0.8 mg PO DAILY [facility] Last Admin: 05/12/24 08:24 Dose: 0.8 mg Levothyroxine Sodium [Synthroid] 112 mcg PO DAILY 10/12/16 Tamsulosin [Flomax] 0.4 mg PO BID 05/05/24 Objective - Vital Signs/Intake & Output Reviewed Vital Signs: Yes Vital Signs: Vital Signs x48h Temp Pulse Resp BP 05/12/24 08:35 37.0 C 83 20 139/87 H Intake & Output: Intake & Output 05/09/24 05/10/24 05/11/24 05/12/24 23:59 23:59 23:59 23:59 Intake Total 2080 1590 2740 240 Output Total 6400 2879 5100 850 [facility] -4320 -1285 -2360 -610 - Objective General Appearance: positive: No acute distress Eyes Bilateral: positive: PERRL ENT: positive: Pharynx nml Neck: positive: Trachea midline Respiratory: positive: Breath sounds nml Cardiovascular: positive: Regular rate & rhythm, No murmur Abdomen: positive: Non-tender, Nml bowel sounds, No distention, Tenderness. negative: Guarding, Rebound Skin: positive: Warm Extremities: positive: No pedal edema Neurologic/Psychiatric: positive: Oriented x3 - Lab Results Fish Bones: 05/12/24 05:39 05/12/24 05:39 Other Labs: Lab Results x24hrs 05/12/24 05/12/24 05/09/24 Range/Units 05:39 05:39 Unknown WBC 9.7 (4.8-10.8) x10^3/uL RBC 3.76 L (4.70-6.10) 10^6/uL Hgb 10.9 L (14.0-18.0) g/dL Hct 32.2 L (42.0-52.0) % MCV 85.6 (80.0-94.0) fL MCH 29.0 (27.0-31.0) pg MCHC 33.9 (32.0-36.0) g/dL RDW 14.6 (12.0-15.0) % Plt Count 626 H (130-450) 10^3/uL MPV 9.7 (7.4-11.4) fL Neut # (Auto) 7.7 H (1.5-6.6) 10^3/uL Lymph # (Auto) 1.0 L (1.5-3.5) 10^3/uL [place] # (Auto) 0.7 (0.0-1.0) 10^3/uL Eos # (Auto) 0.2 (0.0-0.7) 10^3/uL Baso # (Auto) 0.0 (0.0-0.1) 10^3/uL Absolute Nucleated RBC 0.00 x10^3/uL Nucleated RBC % 0.0 /100WBC Sodium 131 L (135-145) mmol/L Potassium 3.6 (3.5-4.5) mmol/L Chloride 99 L (101-111) mmol/L Carbon Dioxide 27 (21-32) mmol/L Anion Gap 5.0 L (6-13) BUN 14 (6-20) mg/dL Creatinine 0.5 L (0.6-1.3) mg/dL Estimated GFR (MDRD) 160 (>89) Glucose 105 H (74-104) mg/dL Serum Osmolality 285 (280-301) mOsmol/kg Calcium 8.3 L (8.5-10.3) mg/dL Urine Osmolality 410 (.) mOsmol/kg ABX Reporting Has patient been on IV antibiotics over the past 48 hours?: No Sepsis Event Note (H) - Evaluation Current Stage of Sepsis: Sepsis Possible source of Sepsis: positive: Genitourinary - Sepsis Criteria Sepsis Criteria: Recorded Heart Rate greater than 90 bpm, Recorded Respiratory Rate greater than 20, WBC count greater than 12,000 or less than 4000, Hematologic: platelets < 100,000; INR > 1.5, or a PTT>60 seconds Assessment/Plan - Problem List (1) Sepsis Impression: Patient with 2 blood culture sets with primary result positive for gram-negative as well as gram-positive cocci in cluster,will continue vancomycin until urine culture available, last blood culture on 05/07/2024 no growth. Still leukocytosis but decrease inflammatory markers with CRP and procalcitonin levels Will continue following up on urine culture and blood cultures CT showing right kidney swelling and inflammation but no abscess formation but a calyceal rupture IV ceftriaxoneChanged to meropenem and vancomycin Blood culture positive for KlebsiellOxytoca, resistant to ampicillin, Final PCR blood culture no growth, 2 preliminary blood culture positive for gram-positive cocci in cluster Follow-up urine cultureShows Klebsiella oxytoca resistant to ampicillin Off ofIV hydrationSince hyponatremic Inflammatory markersNoted to be high Discussed with microbiology no Staph aureus but possibility of anaerobic versus contamination regarding the gram-positive cocci in cluster noted, will DC v ancomycin initiate Flagyl. And follow-up on blood culture sensitivity. Will switch meropenem to p.o. Levaquin based on sensitivity and currently WBC increasing inflammatory marker decreasing and patient expected to be discharged to SNF.Likely discharge to SNF today continue p.o. Levaquin. (2) UTI (urinary tract infection) Conclusion/Plan: Urine culture done on 04 May 2024 shows Klebsiella oxytoca resistant to ampicillin Antibiotic broadened to meropenem and vancomycin, Will DC vancomycin as no Staph aureus, Per my discussion with microbiology department Elevated inflammatory markers Repeat UA NegativeCulture (3) Nephrolithiasis Conclusion/Plan: Status post urology evaluation appreciated Status post cystoscopy with right ureteral stent placement Further stone treatment as an outpatient dc Continue IV hydrationSince hyponatremia Change IV antibiotic meropenem to p.o. Levaquin today possible discharge to SNF today Continue monitoring creatinine Continue pain management Initiate p.o. diet (4) Hypothyroidism Conclusion/Plan: TSHNormal at 2.12 Continue home dose Synthroid (5) Multiple sclerosis Conclusion/Plan: History of immunomodulatory meds in the past Continue muscle relaxant currently Continue pain management PT OT Will change IV morphine to p.o. narcotic since patient going to SNF Initiate Colace (6) BPH (benign prostatic hyperplasia) Conclusion/Plan: Continue home dose tamsulosin Status post Boateng by urology to be DC'd with FoleyAs an outpatient (7) Azotemia Conclusion/Plan: Resolved, will DC IV fluids since patient hyponatremic f/u serum Osmo urine Osmo and urine sodium, Normal TSH, sodiums studies likely SIADHSuggest fluid restriction 1.5 L DVT/GI phylaxis: SCD/PPI
[2024-05-13 07:29] LABS: BASOPHILS # (AUTO) 0.1 10^3/uL (0.0-0.1); BASOPHILS % (AUTO) 0.7 %; EOSINOPHILS # (AUTO) 0.1 10^3/uL (0.0-0.7); EOSINOPHILS % (AUTO) 1.1 %; HCT - HEMATOCRIT 31.2 % (42.0-52.0); HGB - HEMOGLOBIN 10.5 g/dL (14.0-18.0); LYMPHOCYTES # (AUTO) 0.8 10^3/uL (1.5-3.5); LYMPHOCYTES % (AUTO) 8.1 %; MEAN CORPUSCULAR HEMOGLOBIN 28.9 pg (27.0-31.0); MEAN CORPUSCULAR HGB CONC 33.7 g/dL (32.0-36.0); MEAN PLATELET VOLUME 9.4 fL (7.4-11.4); MONOCYTES # (AUTO) 0.6 10^3/uL (0.0-1.0); MONOCYTES % (AUTO) 5.6 %; NEUTROPHILS # (AUTO) 8.3 10^3/uL (1.5-6.6); NEUTROPHILS % (AUTO) 83.4 %; PLT - PLATELET COUNT 628 10^3/uL (130-450); RED BLOOD COUNT 3.63 10^6/uL (4.70-6.10); RED CELL DISTRIBUTION WIDTH 14.5 % (12.0-15.0)
[2024-05-13 07:48] LABS: CALCIUM 8.2 mg/dL (8.5-10.3); CREATININE 0.5 mg/dL (0.6-1.3); POTASSIUM 3.7 mmol/L (3.5-4.5)
--- NOTE | 2024-05-13 08:03 | PROVIDER PROGRESS NOTE ---
Subjective - Prog Note Date Prog Note Date: 05/13/24 Prog Note Time: 08:00 - Subjective Subjective: Patient supine in bed in no acute distress denies any pain no nausea no vomiting feels better Current Medications - Current Medications Current Medications: Active Medications Acetaminophen (Acetaminophen 325 Mg Tablet) 650 mg PO Q4HR PRN PRN Reason: Pain 1 to 4, or Fever Last Admin: 05/07/24 06:30 Dose: 650 mg Hydrocodone Bitart/Acetaminophen (Hydrocod/Acetam 5/325 Mg Tablet) 1 tab PO Q4HR PRN PRN Reason: Moderate Pain (Level 4-6) Last Admin: 05/13/24 06:04 Dose: 1 tab Docusate Sodium (Docusate Sodium 100 Mg Capsule) 100 mg PO DAILY [facility] Last Admin: 05/12/24 07:18 Dose: Not Given Hydralazine HCl (Hydralazine Inj 20 Mg/Ml Vial) 10 mg IVP Q6H PRN PRN Reason: Blood Pressure Levofloxacin (Levofloxacin 250 Mg Tablet) 750 mg PO DAILY [facility] Last Admin: 05/12/24 08:24 Dose: 750 mg Levothyroxine Sodium (Levothyroxine 112 Mcg Tablet) 112 mcg PO QDAC [facility] Last Admin: 05/13/24 06:05 Dose: 112 mcg Methocarbamol (Methocarbamol 500 Mg Tablet) 750 mg PO TID PRN PRN Reason: Spasms Last Admin: 05/08/24 08:15 Dose: 750 mg Multi-Ingredient Ointment (Zinc Oxide 20% Oint 30 Gm Tube) 1 applic TOP PRN PRN PRN Reason: Skin Care Last Admin: 05/10/24 02:34 Dose: 1 applic Multivitamins/Minerals (Multivitamin W/Minerals Tablet) 1 tab PO DAILYWM [facility] Last Admin: 05/12/24 08:24 Dose: 1 tab Ondansetron HCl (Ondansetron 4 Mg/2 Ml Vial) 4 mg IVP Q6HR PRN PRN Reason: Nausea / Vomiting Pantoprazole Sodium (Pantoprazole 40 Mg Tablet) 40 mg PO QDAC [facility] Last Admin: 05/13/24 06:04 Dose: 40 mg Saccharomyces Boulardii (Saccharomyces Boulardii 250 Mg Capsule) 250 mg PO BIDWM [facility] Last Admin: 05/12/24 17:36 Dose: 250 mg Sodium Chloride (Sodium Chloride Flush 0.9% 10 Ml Syringe) 10 ml IVP PRN PRN PRN Reason: NEEDED PER PROVIDER ORDERS Sodium Chloride (Sodium Chloride Flush 0.9% 10 Ml Syringe) 10 ml IVP 0100,0900,1700 [facility] Last Admin: 05/13/24 00:32 Dose: 10 ml Tamsulosin HCl (Tamsulosin 0.4 Mg Capsule) 0.8 mg PO DAILY [facility] Last Admin: 05/12/24 08:24 Dose: 0.8 mg Levothyroxine Sodium [Synthroid] 112 mcg PO DAILY 10/12/16 Tamsulosin [Flomax] 0.4 mg PO BID 05/05/24 Objective - Vital Signs/Intake & Output Reviewed Vital Signs: Yes Vital Signs: Vital Signs x48h Temp Pulse Resp BP Pulse Ox 05/13/24 07:23 36.5 C 79 18 126/63 95 Intake & Output: Intake & Output 05/10/24 05/11/24 05/12/24 05/13/24 23:59 23:59 23:59 23:59 Intake Total 1590 2740 390 Output Total 2875 5100 3050 850 Balance -1285 -2360 -2660 -850 - Objective General Appearance: positive: No acute distress Eyes Bilateral: positive: PERRL ENT: positive: No signs of dehydration Neck: positive: Trachea midline Respiratory: positive: Breath sounds nml Cardiovascular: positive: Regular rate & rhythm, No murmur Abdomen: positive: Non-tender, Nml bowel sounds, No distention. negative: Guarding, Rebound Skin: positive: Warm Extremities: positive: No pedal edema Neurologic/Psychiatric: positive: Oriented x3 - Lab Results Fish Bones: 05/13/24 07:23 05/13/24 07:23 Other Labs: Lab Results x24hrs 05/13/24 05/13/24 Range/Units 07:23 07:23 WBC 10.0 (4.8-10.8) x10^3/uL RBC 3.63 L (4.70-6.10) 10^6/uL Hgb 10.5 L (14.0-18.0) g/dL Hct 31.2 L (42.0-52.0) % MCV 86.0 (80.0-94.0) fL MCH 28.9 (27.0-31.0) pg MCHC 33.7 (32.0-36.0) g/dL RDW 14.5 (12.0-15.0) % Plt Count 628 H (130-450) 10^3/uL MPV 9.4 (7.4-11.4) fL Neut # (Auto) 8.3 H (1.5-6.6) 10^3/uL Lymph # (Auto) 0.8 L (1.5-3.5) 10^3/uL [place] # (Auto) 0.6 (0.0-1.0) 10^3/uL Eos # (Auto) 0.1 (0.0-0.7) 10^3/uL Baso # (Auto) 0.1 (0.0-0.1) 10^3/uL Absolute Nucleated RBC 0.00 x10^3/uL Nucleated RBC % 0.0 /100WBC Sodium 132 L (135-145) mmol/L Potassium 3.7 (3.5-4.5) mmol/L Chloride 99 L (101-111) mmol/L Carbon Dioxide 29 (21-32) mmol/L Anion Gap 4.0 L (6-13) BUN 14 (6-20) mg/dL Creatinine 0.5 L (0.6-1.3) mg/dL Estimated GFR (MDRD) 160 (>89) Glucose 108 H (74-104) mg/dL Calcium 8.2 L (8.5-10.3) mg/dL ABX Reporting Has patient been on IV antibiotics over the past 48 hours?: No Sepsis Event Note (H) - Evaluation Current Stage of Sepsis: Sepsis Possible source of Sepsis: positive: Genitourinary - Sepsis Criteria Sepsis Criteria: Recorded Heart Rate greater than 90 bpm, Recorded Respiratory Rate greater than 20, WBC count greater than 12,000 or less than 4000, Hematologic: platelets < 100,000; INR > 1.5, or a PTT>60 seconds Assessment/Plan - Problem List (1) Sepsis Impression: Patient with 2 blood culture sets with primary result positive for gram-negative as well as gram-positive cocci in cluster,will continue vancomycin until urine culture available, last blood culture on 05/07/2024 no growth. Still leukocytosis but decrease inflammatory markers with CRP and procalcitonin levels Will continue following up on urine culture and blood cultures CT showing right kidney swelling and inflammation but no abscess formation but a calyceal rupture IV ceftriaxoneChanged to meropenem and vancomycin Blood culture positive for KlebsiellOxytoca, resistant to ampicillin, Final PCR blood culture no growth, 2 preliminary blood culture positive for gram-positive cocci in cluster Follow-up urine cultureShows Klebsiella oxytoca resistant to ampicillin Off ofIV hydrationSince hyponatremic Inflammatory markersNoted to be high Discussed with microbiology no Staph aureus but possibility of anaerobic versus contamination regarding the gram-positive cocci in cluster noted, will DC vancomycin initiate Flagyl. And follow-up on blood culture sensitivity. - switched meropenem to p.o. Levaquin based on sensitivity and currently WBC wnl inflammatory marker decreasing and patient expected to be discharged to SNF.Likely discharge to SNF today continue p.o. Levaquin. (2) UTI (urinary tract infection) Conclusion/Plan: Urine culture done on 04 May 2024 shows Klebsiella oxytoca resistant to ampicillin Antibiotic broadened to meropenem and vancomycin, Will DC vancomycin as no Staph aureus, Per my discussion with microbiology department Elevated inflammatory markers Repeat UA NegativeCulture (3) Nephrolithiasis Conclusion/Plan: Status post urology evaluation appreciated Status post cystoscopy with right ureteral stent placement Further stone treatment as an outpatient dc Continue IV hydrationSince hyponatremia Change IV antibiotic meropenem to p.o. Levaquin today possible discharge to SNF today Continue monitoring creatinine Continue pain management Initiate p.o. diet (4) Hypothyroidism Conclusion/Plan: TSHNormal at 2.12 Continue home dose Synthroid (5) Multiple sclerosis Conclusion/Plan: History of immunomodulatory meds in the past Continue muscle relaxant currently Continue pain management PT OT Will change IV morphine to p.o. narcotic since patient going to SNF Initiate Colace (6) BPH (benign prostatic hyperplasia) Conclusion/Plan: Continue home dose tamsulosin Status post Boateng by urology to be DC'd with FoleyAs an outpatient (7) Azotemia Conclusion/Plan: Resolved, will DC IV fluids since patient hyponatremic f/u serum Osmo urine Osmo and urine sodium, Normal TSH, sodiums studies likely SIADHSuggest fluid restriction 1.5 L DVT/GI phylaxis: SCD/PPI
--- NOTE | 2024-05-13 10:01 | Discharge Plan ---
"Discharge Plan for SNF / JUAN M - Discharge Plan And Transition Orders Problem Reviewed?: Yes Disposition: [facility] DC/Xfer Condition: Good Allergies and Adverse Reactions: Allergies Allergy/AdvReac Type Severity Reaction Status Date / Time No Known Drug Allergies Allergy Verified 05/05/24 10:55 Health Concerns: Health concern will remain worsening hyponatremia, continue fluid restriction of 1.5 L a day If worsening hyponatremia consider addition of sodium tabs while on fluid restriction. Debility remains a concern secondary to patient having history of multiple sclerosis discontinue pain management and aggressive rehab. Worsening of kidney stone please refer to urology BETHEL in the case. Plan of Treatment: Continue p.o. antibiotic p.o. Levaquin until 05/21/2024 Continue fluid restriction to 1.5 L a day Monitor sodium levels Continue physical therapy and Occupational Therapy Continue pain management Continue with Boateng until patient seen by urologist Care Goals: Goal of care would be to return to baseline functional status To follow-up with urology as an outpatient for possible lithotripsy Continue Boateng until patient evaluated by urologist Assessment: Patient with 2 blood culture sets with primary result positive for gram-negative as well as gram-positive cocci in cluster,will continue vancomycin until urine culture available, last blood culture on 05/07/2024 no growth. Still leukocytosis but decrease inflammatory markers with CRP and procalcitonin levels Will continue following up on urine culture and blood cultures CT showing right kidney swelling and inflammation but no abscess formation but a calyceal rupture IV ceftriaxoneChanged to meropenem and vancomycin Blood culture positive for KlebsiellOxytoca, resistant to ampicillin, Final PCR blood culture no growth, 2 preliminary blood culture positive for gram-positive cocci in cluster Follow-up urine cultureShows Klebsiella oxytoca resistant to ampicillin Off ofIV hydrationSince hyponatremic Inflammatory markersNoted to be high Discussed with microbiology no Staph aureus but possibility of anaerobic versus contamination regarding the gram-positive cocci in cluster noted, will DC vancomycin initiate Flagyl. And follow-up on blood culture sensitivity. - switched meropenem to p.o. Levaquin based on sensitivity and currently WBC wnl inflammatory marker decreasing and patient expected to be discharged to SNF.Likely discharge to SNF today continue p.o. Levaquin Until 05/21/2024. (2) UTI (urinary tract infection) Conclusion/Plan: Urine culture done on 04 May 2024 shows Klebsiella oxytoca resistant to ampicillin Antibiotic broadened to meropenem and vancomycin, Will DC vancomycin as no Staph aureus, Per my discussion with microbiology department Elevated inflammatory markers Repeat UA NegativeCulture Continue with p.o. Levaquin until 05/21/2024. (3) Nephrolithiasis Conclusion/Plan: Status post urology evaluation appreciated Status post cystoscopy with right ureteral stent placement Further stone treatment as an outpatient dc Continue IV hydrationSince hyponatremia Change IV antibiotic meropenem to p.o. Levaquin today possible discharge to SNF today, Continue p.o. Levaquin until 05/21/2024. Continue monitoring creatinine Continue pain management Initiate p.o. diet (4) Hypothyroidism Conclusion/Plan: TSHNormal at 2.12 Continue home dose Synthroid (5) Multiple sclerosis Conclusion/Plan: History of immunomodulatory meds in the past Continue muscle relaxant currently Continue pain management PT OT Will change IV morphine to p.o. narcotic since patient going to SNF Initiate Colace (6) BPH (benign prostatic hyperplasia) Conclusion/Plan: Continue home dose tamsulosin Status post Boateng by urology to be DC'd with FoleyAs an outpatient (7) Azotemia Conclusion/Plan: Resolved, will DC IV fluids since patient hyponatremic f/u serum Osmo urine Osmo and urine sodium, Normal TSH, sodiums studies likely SIADHSuggest fluid restriction 1.5 L, If hyponatremia worsens consider addition of sodium tab DVT/GI phylaxis: SCD/PPI - SNF / CARE HOME Transition Orders Admit to (Facility): [facility] Discharge Diagnosis: Sepsis UTI Nephrolithiasis Hypothyroidism Multiple sclerosis BPH Status post azotemia SIADH Medicare Certification Statement: I certify that Post Hospital intermediate care is medically necessary on a continuing basis for any of the conditions for which she/he is receiving care during hospitalization. Notify PCP of admission and forward orders to primary provider for signature. Weight on admission and: Weekly Other Notification Orders: Call PCP immediately if patient develops dyspnea, chest pain/tightness or edema. House Bowel Program: Yes Additional Bowel Program Orders: If no BM after 2 days, nurse may give M.O.M. 30ml PO PRN and/or ducolax Supp 1 CO and/or VICKI 250mg P.O., and/or senna 1-2 tabs PO. On day 3 nurse may give repeat above order until residents constipation is resolved. Medication Orders: PLEASE REFER TO THE DISCHARGE MEDICATION LIST. - Medications New Prescriptions: HYDROcod/ACETAM 5/325 [[place] 5/325] 1 tab PO Q4HR PRN 10 Days #60 tab PRN Reason: Moderate Pain (Level 4-6) Acetaminophen [Tylenol] 650 mg PO Q4HR PRN 10 Days #60 tab PRN Reason: Pain 1 to 4, or Fever Docusate Sodium 100Mg Capsule [Colace 100Mg Capsule] 100 mg PO DAILY 10 Days #10 cap Tamsulosin [Flomax] 0.4 mg PO BID 10 Days #60 cap Saccharomyces Boulardii [Florastor] 250 mg PO BIDWM 10 Days #20 cap levoFLOXacin [Levaquin] 750 mg PO DAILY 8 Days #8 tab Pantoprazole [Protonix] 40 mg PO QDAC 30 Days #30 tab methocarbamoL [Robaxin] 750 mg PO TID PRN 10 Days #30 tab PRN Reason: Spasms Levothyroxine Sodium [Synthroid] 112 mcg PO DAILY 30 Days #30 tab Multivitamin W/Minerals [Theragran M] 1 tab PO DAILYWM 30 Days #30 tab Zinc Oxide 20% Oint [Zinc Oxide] 1 applic TOP PRN PRN 10 Days #10 each PRN Reason: Skin Care - Diet Texture: Regular - Therapies | Activity Therapy: Evaluation | Treat if indicated: PT, OT Rehabilitation Potential: Maximize functional status Activity: Activity as Tolerated Assistance Devices: Walker Follow Up: pcp urology"
--- NOTE | 2024-05-13 10:32 | DISCHARGE SUMMARY ---
"Discharge Summary Admit Date: 05/05/24 Discharge Date: 05/13/24 Discharging Provider: dr caraballo Condition at Discharge: Good Discharge Disposition: SNF DC/Xfer Discharge [facility] Name: [facility] - DIAGNOSES Admission Diagnoses: Sepsis UTI Nephrolithiasis Hypothyroidism -Multiple sclerosis BPH azotemia Discharge Diagnoses with Status of Each Condition: Sepsis improved UTI improved Nephrolithiasis s/p stent placement Hypothyroidism Multiple sclerosis BPH Azotemia resolved SIADH - HPI History of Present Illness: This is a 78-year-old male with past medical history of multiple sclerosis and chronic back pain on muscle relaxant hypothyroidism on Synthroid and BPH who has urinary retention requiring clean intermittent cauterization by himself and recent COVID few weeks ago with poor appetite presents to ED after being discharged yesterday with diagnosis of UTI and nephrolithiasis on ciprofloxacin. Patient with chronic history of back pain and right shoulder pain arthritic in nature with recent worsening of back pain was recently yesterday evaluated in ER with the above findings of UTI and kidney stones evaluated by urologist sent home presents back with shaking chills and low-grade fever of 100.4. Patient at this time denies any headache eye pain ear pain nausea vomiting chest pain shortness of breath denies any diarrhea constipation GI bleed admits to chronic bleed secondary to self cauterization. Denies any weakness or sensory changes. Patient while in ER yesterday had a CT scan that showed bilateral upj stone 2 cm on the left and 3 mm on the right with right kidney showing to be edematous with inflammation and possible obstruction. Recent urine culture has grown gram-negative rods. - CONSULTS | PROCEDURES Consultations: Urologist Procedures: Cystoscopy, right retrograde pyelogram, right ureteral stent - HOSPITAL COURSE Hospital Course: Hospital course includes a 78-year-old male with past medical history of multiple sclerosis chronic back pain on muscle relaxant hypothyroidism on Synthroid BPH with urinary retention requiring intermittent catheterization by himself and recent COVID few weeks ago with poor appetite who presented to [facility] ED after being discharged the day before with diagnosis of UTI and nephrolithiasis on ciprofloxacin. Patient with chronic history of back pain and right shoulder pain arthritic in nature recently worsening of back pain and on the day of admission patient with shaking chills low-grade fever 100.4 where patient again presented to the ED where patient was diagnosed with urosepsis and nephrolithiasis as patient with bilateral UPJ stone 2 cm on the left and 3 mm on the right with right kidney showing to be edematous with inflammation possible obstruction. Patient recent urine culture grew gram- negative rods. Patient was admitted to the hospital initiated on IV antibiotic IV fluids with subsequent urine culture showing positivity for Klebsiella oxytoca further blood culture also showed to be positive for Klebsiella oxytoca were patient was started initially on broad-spectrum antibiotic including Vanco and Merrem subsequently at this time has been switched to p.o. Levaquin to cont inue until 05/21/2024. Patient at this time is already been evaluated urologist where patient has the above stent placement and patient is to be continued on Boateng per urology and follow-up with urology for further stone management likely lithotripsy. Patient further was evaluated physical therapy with patient history of multiple sclerosis and weakness suggestion is and patient physical therapy at the [facility] facility where patient has been accepted today to be transferred to [facility] by BLS today. - ALLERGIES Allergies/Adverse Reactions: Allergies Allergy/AdvReac Type Severity Reaction Status Date / Time No Known Drug Allergies Allergy Verified 05/05/24 10:55 - MEDICATIONS Home Medications: Ambulatory Orders Medication Instructions Recorded Confirmed Acetaminophen [Tylenol] 650 mg PO Q4HR PRN 10 Days #60 tab 05/13/24 Docusate Sodium 100Mg Capsule 100 mg PO DAILY 10 Days #10 cap 05/13/24 [Colace 100Mg Capsule] HYDROcod/ACETAM 5/325 [[place] 5/325] 1 tab PO Q4HR PRN 10 Days #60 tab 05/13/24 Levothyroxine Sodium [Synthroid] 112 mcg PO DAILY 30 Days #30 tab 05/13/24 Multivitamin W/Minerals [Theragran 1 tab PO DAILYWM 30 Days #30 tab 05/13/24 M] Pantoprazole [Protonix] 40 mg PO QDAC 30 Days #30 tab 05/13/24 Saccharomyces Boulardii [Florastor] 250 mg PO BIDWM 10 Days #20 cap 05/13/24 Tamsulosin [Flomax] 0.4 mg PO BID 10 Days #60 cap 05/13/24 Zinc Oxide 20% Oint [Zinc Oxide] 1 applic TOP PRN PRN 10 Days #10 05/13/24 each levoFLOXacin [Levaquin] 750 mg PO DAILY 8 Days #8 tab 05/13/24 methocarbamoL [Robaxin] 750 mg PO TID PRN 10 Days #30 tab 05/13/24 - PHYSICAL EXAM AT DISCHARGE General Appearance: positive: No acute distress Eyes Bilateral: positive: PERRL ENT: positive: No signs of dehydration Neck: positive: Trachea midline Respiratory: positive: Breath sounds nml Cardiovascular: positive: Regular rate & rhythm, No murmur Abdomen: positive: Non-tender, Nml bowel sounds, No distention. negative: Guarding, Rebound Skin: positive: Warm Extremities: positive: No pedal edema Neurologic/Psychiatric: positive: Oriented x3 - LABS Result Diagrams: 05/13/24 07:23 05/13/24 07:23 - SEPSIS Current Stage of Sepsis: Sepsis Possible source of Sepsis: Genitourinary Sepsis Criteria: Recorded Heart Rate greater than 90 bpm, Recorded Respiratory Rate greater than 20, WBC count greater than 12,000 or less than 4000, Hematologic: platelets < 100,000; INR > 1.5, or a PTT>60 seconds - FOLLOW UP Follow Up: pcp/urology - TIME SPENT Time Spent in Discharge (Minutes): 44"
[2024-05-13 14:23] VITALS: BP 126/58; O2SAT 96
== END 2024-05-13 14:25 | DRG 854 ==
LOC: ED 10:48 → MS2 15:15
PROVIDERS: ADMIT Hospitalist; ATTEND Hospitalist
PROC: 0T768DZ Dilation of Right Ureter with Intraluminal Device, Via Natural or Artificial Opening Endoscopic (ICD-10-PCS; principal; 2024-05-05 16:30)
DX: A41.59 Other Gram-negative sepsis (principal); E22.2 Syndrome of inappropriate secretion of antidiuretic hormone; R00.0 Tachycardia, unspecified; N40.0 Benign prostatic hyperplasia without lower urinary tract symptoms; N39.0 Urinary tract infection, site not specified; Z16.11 Resistance to penicillins; D72.829 Elevated white blood cell count, unspecified; N20.0 Calculus of kidney; E03.9 Hypothyroidism, unspecified; G35 Multiple sclerosis; N40.1 Benign prostatic hyperplasia with lower urinary tract symptoms; R33.8 Other retention of urine; E87.5 Hyperkalemia; E86.0 Dehydration; R79.89 Other specified abnormal findings of blood chemistry; R53.1 Weakness; M54.9 Dorsalgia, unspecified; G89.29 Other chronic pain; N31.9 Neuromuscular dysfunction of bladder, unspecified; B96.1 Klebsiella pneumoniae [K. pneumoniae] as the cause of diseases classified elsewhere; M54.50 Low back pain, unspecified; M25.511 Pain in right shoulder; K59.00 Constipation, unspecified; Z87.442 Personal history of urinary calculi; Z86.16 Personal history of COVID-19; N39.498 Other specified urinary incontinence; R31.9 Hematuria, unspecified
CPT/HCPCS: 36415; 72148; 72192; 74177; 80048; 80053; 81001; 83605; 83930; 83935; 84145; 84300; 84443; 85025; 85651; 86140; 87040; 87086; 87154; 87181; 92610; 93307; 96361; 96374; 97110; 97162; 97166; 97530; 99284; 99285; A9270; C1758; C2617; J2185; J3370; J7120; Q9966; Q9967

== ENCOUNTER 2024-05-13 14:19 | Outpatient (CLI) | payer MEDICARE | END 2024-05-13 23:59 | LOC: EMS 14:19 | PROVIDERS: ATTEND Hospitalist | DX: G35 Multiple sclerosis (principal); Z74.01 Bed confinement status | CPT/HCPCS: A0425; A0428 ==

== ENCOUNTER 2025-05-24 06:29 | Observation (INO) ==
[2025-05-24] MEDS ORDERED: LIDOCAINE 2% URO-JET 5 ML SYRINGE UR ONE ×2 (06:54→14:56)
[2025-05-24] MEDS ORDERED: MIDAZOLAM 2 MG/2 ML VIAL ONE (07:06)
[2025-05-24] MEDS ORDERED: PROPOFOL 200 MG/20 ML VIAL IVP ONE ×2 (07:06→15:14)
[2025-05-24] MEDS ORDERED: LIDOCAINE-PF 2% 10 ML AMP SUBQ ONE (07:06)
[2025-05-24] MEDS ORDERED: fentaNYL 100 MCG/2 ML VIAL ONE ×2 (07:06→15:14)
[2025-05-24] MEDS: LACTATED RINGERS 1,000 ML IV PRN (07:07)
--- NOTE | 2025-05-24 07:20 | ANESTHESIA PROCEDURE NOTE ---
Pre-Anesthesia VS, & Labs Diagnosis Surgical Diagnosis:: BPH with urinary retention Procedure Procedure: TURP Vitals Vital Signs: Temp Pulse Resp BP Pulse Ox 36.8 C 80 16 144/77 H 98 05/24/25 06:49 05/24/25 06:49 05/24/25 06:49 05/24/25 06:49 05/24/25 06:49 NPO NPO: >8 hours Lab Results Lab results reviewed: Yes Meds/Allgy Home Medications Ambulatory Orders Medication Instructions Recorded Confirmed adezieyigvjv-brdxbgmz-oqkx 1 tab PO DAILYWM 30 days #3 0 tabs 05/13/24 05/24/25 fumarate 19 mg-folic acid 400 mcg tablet (Therapeutic-M) vitamins A,C,W-gojj-oeyktq 4,296 1 cap PO BID 06/29/24 05/24/25 mcg-226 mg-90 mg capsule (PreserVision AREDS) levothyroxine 112 mcg tablet 112 mcg PO DAILY 30 days #90 tabs 11/04/24 05/24/25 (Synthroid) naproxen 500 mg tablet 500 mg PO BID #180 tabs 10/2405/24/25 Allergies Allergies Allergy/AdvReac Type Severity Reaction Status Date / Time pollen extracts Allergy Mild Unknown Verified 05/24/25 07:09 PFSH Active Problems All Active Problems (Updated 05/22/25 @ 17:23 by Pavel Dumas MD) Macular degeneration, wet (Acute) BPH loc w urin obs/LUTS (Acute) Hearing loss (Acute) 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) Sacroiliitis (Chronic) Neurogenic bladder (Chronic) Azotemia (Acute) BPH (benign prostatic hyperplasia) (Chronic) Multiple sclerosis (Chronic) Hypothyroidism (Acute) Kidney stone on left side (Chronic) Kidney stone on right side (Chronic) Osteoarthritis, shoulder (Chronic) Medical History Medical History (Updated 05/22/25 @ 17:23 by Pavel Dumas MD) Mild concussion Recurrent sepsis due to urinary tract infection Pyelonephritis Sepsis UTI (urinary tract infection) Colon polyp, hyperplastic Vision loss Indwelling catheter present on admission Chronic back pain History of cataract Surgical History Surgical History (Updated 05/18/25 @ 08:19 by Pavel Dumas MD) S/P cystoscopy with ureteral stent placement History of lithotripsy History of colonoscopy History of lumbar laminectomy history of cervical laminectomy H/O thyroidectomy Family History Family History (Updated 06/29/24 @ 16:39 by Em Llamas LPN) Mother Arthritis Brother Arthritis Sister Arthritis Factor 5 Leiden mutation, heterozygous Father Cancer Social History Social History (Updated 04/21/25 @ 10:03 by Darrel Arnett MD) Smoking Status: Smoker with current status unk If you are a former smoker, when did you quit? (Date/Year): occasional cigar Number of Years Smoked: 10 How many cigarettes a day do you smoke? (20 cigarettes=1 Pk): 5 Second hand tobacco smoke exposure: Yes Do you dip or chew tobacco?: No Do you vape?: No Patient requests smoking cessation consult: No Initiate information on smoking cessation: No Living arrangement: At home Marital Status: Living Condition: With caregiver(s) Level: Assisted Do you feel safe in your home environment?: Yes History of physical, verbal, emotional, or financial abuse?: No ETOH Use: Wine, Beer and Liquor Frequency: Occasional Substance Use: denies use Occupation - Current: Physician Internal medicine Retired: Yes Known occupational exposures/hazards (Current/Previous): None known. Service: No Are you following a diet prescribed by a doctor: No Are you following a special diet: No POLST Patient has POLST: No Anesthesia Exam (Expanded) Exam General: Alert, Oriented x3 and Cooperative Dental: WNL Mouth Openin Fingerbreadth Neck Mobility: Normal Mallampati classification: II Thyromental Distance: 4-6 cm Cardiovascular: Regular rate Neurological: Normal speech Mental/Cognitive Status: Alert/Oriented X3 and Normal for patient Cognitive Status: Within normal limits Exam Exam Vital Signs: Vital Signs x48h Temp Pulse Resp BP Pulse Ox 05/24/25 06:49 36.8 C 80 16 144/77 H 98 Plan Plan Anesthesia Type: General Consent for Procedure(s) Verified and Reviewed: Yes Code Status: Attempt Resuscitation ASA Classification ASA classification: 3-Severe systemic disease Is this case an emergency?: No
[2025-05-24] MEDS: CIPROFLOXACIN 400 MG/200 ML 400 MG/200 ML BAG IV SCH (07:30)
[2025-05-24] MEDS ORDERED: ONDANSETRON 4 MG/2 ML VIAL ONE (07:36)
[2025-05-24] MEDS ORDERED: DEXAMETHASONE 4 MG/ML VIAL ONE (07:36)
[2025-05-24] MEDS ORDERED: PHENYLEPHRINE HCL 0.5 MG/5 ML AMPULE ONE ×2 (08:00→15:47)
[2025-05-24] MEDS ORDERED: ATROPINE ABBOJECT 1 MG/10 ML SYRINGE IVP PRN ×2 (08:12→15:24)
[2025-05-24] MEDS ORDERED: MORPHINE 2 MG/ML CARPUJECT IVP PRN ×2 (08:12→15:24)
[2025-05-24] MEDS ORDERED: NALOXONE 0.4 MG/ML VIAL IVP PRN ×2 (08:12→15:24)
[2025-05-24] MEDS ORDERED: fentaNYL 100 MCG/2 ML VIAL IVP PRN ×2 (08:12→15:24)
[2025-05-24] MEDS ORDERED: HYDROmorphone 0.5 MG/0.5 ML SYRINGE IVP PRN ×2 (08:12→15:24)
[2025-05-24] MEDS ORDERED: METOCLOPRAMIDE 10 MG/2 ML VIAL IVP PRN ×2 (08:12→15:24)
[2025-05-24] MEDS ORDERED: ePHEDrine 50 MG/ML VIAL IVP PRN ×2 (08:12→15:24)
[2025-05-24] MEDS ORDERED: ONDANSETRON 4 MG/2 ML VIAL IVP PRN ×4 (08:12→17:09)
[2025-05-24] MEDS ORDERED: ePHEDrine 50 MG/ML VIAL IVP ONE (08:15)
[2025-05-24] MEDS ORDERED: SODIUM CHLORIDE 0.9% 10 ML VIAL ONE (08:15)
[2025-05-24] MEDS ORDERED: HYDROcod/ACETAM 5/325 MG TABLET PO PRN ×2 (08:48→17:09)
--- NOTE | 2025-05-24 08:48 | OPERATIVE REPORT ---
Operative Report General Procedure Data: Operation Date: 05/24/25 07:30 Proposed Procedures p Transurethral Resection Prostate(Not Applicable) - Darrel Arnett MD Actual Procedures p Transurethral Resection Prostate(Not Applicable) - Darrel Arnett MD Pre-Op Diagnosis: BPH Anesthesia Type General Case Staff Anesthesia Provider: Fercho Hunter Case Times Into Recovery: 05/24/25 08:23 Procedure Start: 05/24/25 07:40 Procedure End: 05/24/25 08:20 Time out: 05/24/25 07:39 Pre-Op Diagnosis: urinary retention Post Op Diagnosis: urinary retention Procedure Note Estimated Blood Loss (ml): 50 Pathology: prostate chips Findings: very large prostate Other Other Information/Narrative: After informed consent was obtained the patient was brought to the OR and laid in the supine position. The patient was anesthetized per anesthesia protocols and prepped draped in usual sterile fashion in the dorsolithotomy position. A formal timeout was performed reconfirming the patient, procedure and laterality. A 26 Pal[place] resectoscope was Rendon easily per urethra into the urinary bladder. He had a very large median lobe. He had significant lateral lobe hypertrophy as well. Overall his prostate was really quite large. His ureteral orifices were both orthotopic and were identified and were spared from any injury. His bladder was enlarged. He had no masses or lesions or other concerns otherwise within the bladder. Using loop electrocautery and the bipolar setting we resected his median lobe at the 5:00 and 7 o'clock position down to the verumontanum. We then took down the intervening tissue for a good wide flat plane. We then took down his left lateral lobe in his right lateral lobe. He had a lot of tissue. This took a significant mount of time perhaps about 45 minutes of resecting. We then evacuated out his prostate chips and sent for analysis. Spot cautery used for hemostasis. Hemostasis was quite good but it was a very wide surface area of resection. His ureteral orifices were reinspected and were not injured. A Uro-Jet was placed and a 22 [place] three-way Boateng catheter was placed with 50 cc in the balloon. He was placed on gentle bladder irrigation. He was reversed of anesthesia and brought to PACU without further incident. He will likely be admitted overnight for monitoring
--- NOTE | 2025-05-24 09:12 | ANESTHESIA POST OP EVALUATION ---
Anesthesia Post Eval Post Anesthesia Eval Vitals: Last Vital Signs Temp 36.2 C L 05/24/25 09:05 Pulse 85 05/24/25 09:05 Resp 12 05/24/25 09:05 BP 135/85 H 05/24/25 09:05 Pulse Ox 97 05/24/25 09:05 CV Function Including HR & BP: Stable Pain Control: Satisfactory Nausea & Vomiting: Negative Mental Status: Baseline Respiratory Status: Airway Patent Hydration Status: Satisfactory Anesthesia Complications: None
[2025-05-24] MEDS ORDERED: ACETAMINOPHEN 1,000 MG/100 ML 1,000 MG/100 ML BAG IV ONE (09:19)
--- NOTE | 2025-05-24 10:36 | ANESTHESIA POST OP EVALUATION ---
Anesthesia Post Eval Post Anesthesia Eval Vitals: Last Vital Signs Temp 36.4 C L 05/24/25 10:01 Pulse 69 05/24/25 10:01 Resp 16 05/24/25 10:01 BP 153/92 H 05/24/25 10:01 Pulse Ox 97 05/24/25 10:01 CV Function Including HR & BP: Stable Pain Control: Satisfactory Nausea & Vomiting: Negative Mental Status: Baseline Respiratory Status: Airway Patent Hydration Status: Satisfactory Anesthesia Complications: None
--- NOTE | 2025-05-24 13:29 | HISTORY & PHYSICAL EXAMINATION ---
History of Present Illness Admitted From Admitted From:: OR History of Present Illness HPI Comment/Other: 79-year-old male with history of TURP performed today. Postoperatively had some mild bleeding and was elected to stay with continuous bladder irrigation. Over the communications lead the bleeding has gotten worse. I put him on traction but he continues to have significant bleeding. I irrigated out a few small clots. I am worried he may have a small arterial bleeding area. I think that he may do well enough to keep him overnight just on continuous bladder irrigation but I would not like him to be bleeding for that long given his advanced age. To that end I discussed with him and his daughter I would like to take him back for a repeat procedure to fulgurate any bleeding areas. Colonoscopy Questionnaire In the last 30 days have you experienced these symptoms? PFSH Active Problems All Active Problems (Updated 05/24/25 @ 13:28 by Darrel Arnett MD) Hematuria (Acute) Macular degeneration, wet (Acute) BPH loc w urin obs/LUTS (Acute) Hearing loss (Acute) 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) Sacroiliitis (Chronic) Neurogenic bladder (Chronic) Azotemia (Acute) BPH (benign prostatic hyperplasia) (Chronic) Multiple sclerosis (Chronic) Hypothyroidism (Acute) Kidney stone on left side (Chronic) Kidney stone on right side (Chronic) Osteoarthritis, shoulder (Chronic) Medical History Medical History (Updated 05/24/25 @ 13:28 by Darrel Arnett MD) Mild concussion Recurrent sepsis due to urinary tract infection Pyelonephritis Sepsis UTI (urinary tract infection) Colon polyp, hyperplastic Vision loss Indwelling catheter present on admission Chronic back pain History of cataract Surgical History Surgical History (Updated 05/18/25 @ 08:19 by Pavel Dumas MD) S/P cystoscopy with ureteral stent placement History of lithotripsy History of colonoscopy History of lumbar laminectomy history of cervical laminectomy H/O thyroidectomy Family History Family History (Updated 06/29/24 @ 16:39 by Em Llamas LPN) Mother Arthritis Brother Arthritis Sister Arthritis Factor 5 Leiden mutation, heterozygous Father Cancer Social History Social History (Updated 04/21/25 @ 10:03 by Darrel Arnett MD) Smoking Status: Smoker with current status unk If you are a former smoker, when did you quit? (Date/Year): occasional cigar Number of Years Smoked: 10 How many cigarettes a day do you smoke? (20 cigarettes=1 Pk): 5 Second hand tobacco smoke exposure: Yes Do you dip or chew tobacco?: No Do you vape?: No Patient requests smoking cessation consult: No Initiate information on smoking cessation: No Living arrangement: At home Marital Status: Living Condition: With caregiver(s) Level: Assisted Do you feel safe in your home environment?: Yes History of physical, verbal, emotional, or financial abuse?: No ETOH Use: Wine, Beer and Liquor Frequency: Occasional Substance Use: denies use Occupation - Current: Physician Internal medicine Retired: Yes Known occupational exposures/hazards (Current/Previous): None known. Service: No Are you following a diet prescribed by a doctor: No Are you following a special diet: No POLST Patient has POLST: No Meds/Allgy Home Medications Ambulatory Orders Medication Instructions Recorded Confirmed fikzlfexgkal-ehekcttb-fcxs 1 tab PO DAILYWM 30 days #3 0 tabs 05/13/24 05/24/25 fumarate 19 mg-folic acid 400 mcg tablet (Therapeutic-M) vitamins A,C,U-ovzf-mgazxi 4,296 1 cap PO BID 06/29/24 05/24/25 mcg-226 mg-90 mg capsule (PreserVision AREDS) levothyroxine 112 mcg tablet 112 mcg PO DAILY 30 days #90 tabs 11/04/24 05/24/25 (Synthroid) naproxen 500 mg tablet 500 mg PO BID #180 tabs 10/2405/24/25 hydrocodone 5 mg-acetaminophen 325 1 tab PO Q4H PRN Pa in #10 tabs 05/24/25 mg tablet Allergies Allergies Allergy/AdvReac Type Severity Reaction Status Date / Time pollen extracts Allergy Mild Unknown Verified 05/24/25 07:09 Exam Exam Vital Signs: Vital Signs x48h Temp Pulse Resp BP Pulse Ox 05/24/25 13:00 36.7 C 88 18 139/78 H 97 05/24/25 12:00 36.4 C L 76 18 145/78 H 97 05/24/25 11:03 36.4 C L 69 18 158/84 H 98 05/24/25 10:01 36.4 C L 69 16 153/92 H 97 05/24/25 09:31 36.4 C L 66 16 158/83 H 97 05/24/25 09:15 36.2 C L 66 14 163/86 H 97 05/24/25 09:05 36.2 C L 85 12 135/85 H 97 05/24/25 08:55 36.2 C L 87 11 L 138/86 H 96 05/24/25 08:40 36.2 C L 96 16 136/85 H 97 05/24/25 08:35 97 12 139/75 H 99 05/24/25 08:30 93 11 L 143/84 H 99 05/24/25 08:23 36.7 C 91 14 131/70 H 98 05/24/25 06:49 36.8 C 80 16 144/77 H 98 NAD RRR CTA b/l 3 way camacho with red translucent effluent on fast CBI Impression/Plan Problem List (1) Hematuria: Plan: We discussed the risk, benefits, alternatives of the procedure. The patient states understanding and consents to a cystoscopy, fulguration of bleeding areas. We discussed the risk specifically of infection, bleeding, injury to adjacent structures, need for additional procedures, anesthesia risk Patient states understanding and consents to the above plan Will admit him overnight afterwards Qualifiers: Hematuria type: gross Qualified Code(s): R31.0 - Gross hematuria
[2025-05-24] MEDS ORDERED: LACTATED RINGERS 1,000 ML IV PRN (14:18)
[2025-05-24] MEDS ORDERED: CIPROFLOXACIN 400 MG/200 ML 400 MG/200 ML BAG IV ONE (15:05)
--- NOTE | 2025-05-24 15:23 | ANESTHESIA PROCEDURE NOTE ---
Pre-Anesthesia VS, & Labs Diagnosis Surgical Diagnosis:: BPH with urinary retention Procedure Procedure: fulgaration of bladder/turp bleeding Vitals Vital Signs: Temp Pulse Resp BP Pulse Ox 36.7 C 89 16 131/80 H 96 05/24/25 15:00 05/24/25 15:00 05/24/25 15:00 05/24/25 15:00 05/24/25 15:00 NPO NPO: Other (2 muffins at 10am) Meds/Allgy Home Medications Ambulatory Orders Medication Instructions Recorded Confirmed ehrecalcfrbs-jgpghboz-wymb 1 tab PO DAILYWM 30 days #3 0 tabs 05/13/24 05/24/25 fumarate 19 mg-folic acid 400 mcg tablet (Therapeutic-M) vitamins A,C,H-sche-qqlwya 4,296 1 cap PO BID 06/29/24 05/24/25 mcg-226 mg-90 mg capsule (PreserVision AREDS) levothyroxine 112 mcg tablet 112 mcg PO DAILY 30 days #90 tabs 11/04/24 05/24/25 (Synthroid) naproxen 500 mg tablet 500 mg PO BID #180 tabs 10/2405/24/25 hydrocodone 5 mg-acetaminophen 325 1 tab PO Q4H PRN Pa in #10 tabs 05/24/25 mg tablet Allergies Allergies Allergy/AdvReac Type Severity Reaction Status Date / Time pollen extracts Allergy Mild Unknown Verified 05/24/25 07:09 PFSH Active Problems All Active Problems (Updated 05/24/25 @ 13:28 by Darrel Arnett MD) Hematuria (Acute) Macular degeneration, wet (Acute) BPH loc w urin obs/LUTS (Acute) Hearing loss (Acute) 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) Sacroiliitis (Chronic) Neurogenic bladder (Chronic) Azotemia (Acute) BPH (benign prostatic hyperplasia) (Chronic) Multiple sclerosis (Chronic) Hypothyroidism (Acute) Kidney stone on left side (Chronic) Kidney stone on right side (Chronic) Osteoarthritis, shoulder (Chronic) Medical History Medical History (Updated 05/24/25 @ 13:28 by Darrel Arnett MD) Mild concussion Recurrent sepsis due to urinary tract infection Pyelonephritis Sepsis UTI (urinary tract infection) Colon polyp, hyperplastic Vision loss Indwelling catheter present on admission Chronic back pain History of cataract Surgical History Surgical History (Updated 05/18/25 @ 08:19 by Pavel Dumas MD) S/P cystoscopy with ureteral stent placement History of lithotripsy History of colonoscopy History of lumbar laminectomy history of cervical laminectomy H/O thyroidectomy Family History Family History (Updated 06/29/24 @ 16:39 by Em Llamas LPN) Mother Arthritis Brother Arthritis Sister Arthritis Factor 5 Leiden mutation, heterozygous Father Cancer Social History Social History (Updated 04/21/25 @ 10:03 by Darrel Arnett MD) Smoking Status: Smoker with current status unk If you are a former smoker, when did you quit? (Date/Year): occasional cigar Number of Years Smoked: 10 How many cigarettes a day do you smoke? (20 cigarettes=1 Pk): 5 Second hand tobacco smoke exposure: Yes Do you dip or chew tobacco?: No Do you vape?: No Patient requests smoking cessation consult: No Initiate information on smoking cessation: No Living arrangement: At home Marital Status: Living Condition: With caregiver(s) Level: Assisted Do you feel safe in your home environment?: Yes History of physical, verbal, emotional, or financial abuse?: No ETOH Use: Wine, Beer and Liquor Frequency: Occasional Substance Use: denies use Occupation - Current: Physician Internal medicine Retired: Yes Known occupational exposures/hazards (Current/Previous): None known. Service: No Are you following a diet prescribed by a doctor: No Are you following a special diet: No POLST Patient has POLST: No Anesthesia Exam (Expanded) Exam General: Alert and Oriented x3 Dental: WNL Mouth Opening: Greater than 4 Fingerbreadths Neck Mobility: Normal Mallampati classification: II Thyromental Distance: greater than 6 cm Respiratory: Lungs clear Cardiovascular: Regular rate Exam Exam Vital Signs: Vital Signs x48h Temp Pulse Resp BP Pulse Ox 05/24/25 15:00 36.7 C 89 16 131/80 H 96 05/24/25 14:05 36.7 C 86 18 132/76 H 97 05/24/25 13:00 36.7 C 88 18 139/78 H 97 05/24/25 12:00 36.4 C L 76 18 145/78 H 97 05/24/25 11:03 36.4 C L 69 18 158/84 H 98 05/24/25 10:01 36.4 C L 69 16 153/92 H 97 05/24/25 09:31 36.4 C L 66 16 158/83 H 97 05/24/25 09:15 36.2 C L 66 14 163/86 H 97 05/24/25 09:05 36.2 C L 85 12 135/85 H 97 05/24/25 08:55 36.2 C L 87 11 L 138/86 H 96 05/24/25 08:40 36.2 C L 96 16 136/85 H 97 05/24/25 08:35 97 12 139/75 H 99 05/24/25 08:30 93 11 L 143/84 H 99 05/24/25 08:23 36.7 C 91 14 131/70 H 98 Plan Problem List (1) Hematuria: Plan: We discussed the risk, benefits, alternatives of the procedure. The patient states understanding and consents to a cystoscopy, fulguration of bleeding areas. We discussed the risk specifically of infection, bleeding, injury to adjacent structures, need for additional procedures, anesthesia risk Patient states understanding and consents to the above plan Will admit him overnight afterwards Qualifiers: Hematuria type: gross Qualified Code(s): R31.0 - Gross hematuria Plan Anesthesia Type: General Consent for Procedure(s) Verified and Reviewed: Yes Code Status: Attempt Resuscitation ASA Classification ASA classification: 3-Severe systemic disease Is this case an emergency?: Yes (bleeding postoperative TURP return to surgery)
[2025-05-24] MEDS ORDERED: ROCURONIUM 50 MG/5 ML VIAL ONE (15:24)
[2025-05-24] MEDS ORDERED: SUGAMMADEX 200 MG/2 ML VIAL IVP ONE (16:04)
--- NOTE | 2025-05-24 16:29 | OPERATIVE REPORT ---
Operative Report General Procedure Data: Operation Date: 05/24/25 14:30 Proposed Procedures p REPEAT Transurethral Resection Prostate(Not Applicable) - Darrel Arnett MD Actual Procedures p cystoscopy, fulguration of prostate(Not Applicable) - Darrel Arnett MD Pre-Op Diagnosis: hematuria Anesthesia Type General Case Staff Anesthesia Provider: Susanna Francois Case Times Procedure Start: 05/24/25 15:54 Procedure End: 05/24/25 16:24 Time out: 05/24/25 15:54 Pre-Op Diagnosis: hematuria Post Op Diagnosis: same Procedure Note Estimated Blood Loss (ml): 200 Findings: diffuse oozing, 200cc of old clot removed Complications: none Other Other Information/Narrative: After informed consent was obtained the patient was brought to the OR and laid in the supine position. The patient was anesthetized per anesthesia protocols his old Boateng catheter was removed and prepped and draped in the usual sterile fashion in the dorsolithotomy position. A formal timeout was performed reconfirmed the patient and procedure. A 26 [place] long resectoscope was passed easily per urethra into the urinary bladder. He was noted to have a large amount of clot. Using an StrongLoop evacuator we evacuated out about 200 cc of old clot. His prostatic fossa was noted to have diffuse oozing. There was no significant arterial bleeding. We used loop electrocautery and coagulation to fulgurate all areas of oozing. There was perhaps some at the bladder neck circumferentially. There were no bleeding sites in the bladder. There was no significant reresection of his prostate. The overall channel appeared wide open. A Uro-Jet was placed and a 22 [place] three-way Boateng catheter was placed with 50 cc in the balloon. He was then placed on gentle traction and reversed of anesthesia and brought to the PACU without further incident. He will have lab work now and be admitted to the hospital for further monitoring.
[2025-05-24] MEDS: LACTATED RINGERS 1,000 ML IV SCH ×2 (16:35→16:54)
[2025-05-24] MEDS ORDERED: ACETAMINOPHEN 500 MG TABLET PO PRN (17:09)
[2025-05-24] MEDS ORDERED: OPIUM/BELLADONNA 60/16.2MG SUPPOSITORY PR PRN (17:09)
[2025-05-24 17:39] LABS: HCT - HEMATOCRIT 32.8 % (42.0-52.0); HGB - HEMOGLOBIN 10.8 g/dL (14.0-18.0); MEAN PLATELET VOLUME 9.4 fL (7.4-11.4); NRBC ABSOLUTE COUNT (AUTO) 0.00 x10^3/uL; NUCLEATED RED BLOOD CELLS AUTO 0.0 /100WBC; PLT - PLATELET COUNT 222 10^3/uL (130-450); RED CELL DISTRIBUTION WIDTH 13.5 % (12.0-15.0)
[2025-05-24] MEDS: ceFAZolin (2G) 2 GM in SODIUM CHLORIDE 0.9% MINIBAG 100 ML IV SCH (17:41)
--- NOTE | 2025-05-24 17:55 | ANESTHESIA POST OP EVALUATION ---
Anesthesia Post Eval Post Anesthesia Eval Vitals: Last Vital Signs Temp 36.5 C 05/24/25 17:25 Pulse 80 05/24/25 17:25 Resp 16 05/24/25 17:25 BP 133/75 H 05/24/25 17:25 Pulse Ox 98 05/24/25 17:25 CV Function Including HR & BP: Stable Pain Control: Satisfactory Nausea & Vomiting: Negative Mental Status: Baseline Respiratory Status: Airway Patent Hydration Status: Satisfactory Anesthesia Complications: None
[2025-05-24 17:56] LABS: BUN - BLOOD UREA NITROGEN 18.0 mg/dL (6-20); CARBON DIOXIDE - CO2 29.0 mmol/L (21-32); CREATININE 0.9 mg/dL (0.6-1.3); GFR - MDRD 81.0 (>89)
--- NOTE | 2025-05-24 19:54 | MISCELLANEOUS PROVIDER NOTE ---
Miscellaneous Provider Note - Note: I saw patient post-operatively and explained that he needed to be intubated due to not having been NPO, and that in doing so I thought I had chipped his front tooth. He felt his teeth and said he didn't think so, said he was very happy with his care and offered me some of his pizza.
[2025-05-25 04:51] LABS: HCT - HEMATOCRIT 29.1 % (42.0-52.0); HGB - HEMOGLOBIN 9.6 g/dL (14.0-18.0); MEAN PLATELET VOLUME 10.2 fL (7.4-11.4); PLT - PLATELET COUNT 203.0 10^3/uL (130-450); RED CELL DISTRIBUTION WIDTH 13.5 % (12.0-15.0)
[2025-05-25 05:09] LABS: BUN - BLOOD UREA NITROGEN 16.0 mg/dL (6-20); CARBON DIOXIDE - CO2 29.0 mmol/L (21-32); CREATININE 0.8 mg/dL (0.6-1.3); GFR - MDRD 93.0 (>89)
[2025-05-25] MEDS: LEVOTHYROXINE 112 MCG TABLET PO SCH (06:30)
--- NOTE | 2025-05-25 08:17 | PROVIDER PROGRESS NOTE ---
Subjective General Procedure Date: 05/05/24 Post Op Days: 385 Procedure Performed: TURP/ clot evac Other Other Information/Narrative: No issues overnight. Urine is clear. Feels very well. Hemoglobin stable. Exam Exam Vital Signs: Vital Signs x48h Temp Pulse Resp BP Pulse Ox 05/25/25 05:51 36.6 C 75 16 137/70 H 97 05/25/25 03:04 36.5 C 72 16 121/60 97 nad clear effluent on slow drip cbi Impression/Plan Problem List (1) Hematuria: Plan: Clear effluent after TURP procedure and 2nd procedure to help with bleeding Home today with Boateng catheter. Voiding trial next week. Will send a few days of antibiotics Qualifiers: Hematuria type: gross Qualified Code(s): R31.0 - Gross hematuria
--- NOTE | 2025-05-25 08:40 | Discharge Summary ---
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 After the procedure his urine appeared more bloody and so he was put on continuous bladder irrigation and gentle traction but the bleeding persisted. For this reason he was taken back to the OR for a clot evacuation and fulguration. This was very successful he was admitted overnight for continuous bladder irrigation. In the morning his hemoglobin was stable and he was hemodynamically stable and asymptomatic. He was in good spirits and feels well. He has a three-way Camacho catheter in place. He was kept on ciprofloxacin perioperatively ALLERGIES Allergies Allergy/AdvReac Type Severity Reaction Status Date / Time pollen extracts Allergy Mild Unknown Verified 05/24/25 07:09 MEDICATIONS Ambulatory Orders Medication Instructions Recorded Confirmed [id number]-[id number] 1 tab PO DAILYWM 30 days #3 0 tabs 05/13/24 05/24/25 fumarate 19 mg-folic acid 400 mcg tablet (Therapeutic-M) vitamins A,C,J-vjoo-sszkqt 4,296 1 cap PO BID 06/29/24 05/24/25 mcg-226 mg-90 mg capsule (PreserVision AREDS) levothyroxine 112 mcg tablet 112 mcg PO DAILY 30 days #90 tabs 11/04/24 05/24/25 (Synthroid) naproxen 500 mg tablet 500 mg PO BID #180 tabs 10/2405/24/25 hydrocodone 5 mg-acetaminophen 325 1 tab PO Q4H PRN Pa in #10 tabs 05/24/25 mg tablet ciprofloxacin HCl 500 mg tablet 500 mg PO BID 3 days # 6 tabs 05/25/25 PHYSICAL EXAM AT DISCHARGE Vital Signs: Vital Signs x48h Temp Pulse Resp BP Pulse Ox 05/25/25 05:51 36.6 C 75 16 137/70 H 97 05/25/25 03:04 36.5 C 72 16 121/60 97 NAD clear effluent on slow drip cbi [address] camacho, 50cc balloon LABS 05/25/25 04:08 05/25/25 04:08 FOLLOW UP Follow Up: 1 week for voiding trial with Dr. Arnett TIME SPENT Time Spent in Discharge (Minutes): 10 Discharge Plan Discharge Patient Disposition: 01 Home, Self Care Activity Restrictions/Additional Instructions: DIET - You may resume your normal diet if there is no nausea or vomiting. You may want to avoid spicy, greasy, or heavy foods today to minimize gas. - If nausea or vomiting occurs, don't eat or drink anything for one hour. Then start drinking small amounts of clear liquids. Later, add crackers, gradually building up to your usual diet. ACTIVITY INSTRUCTIONS * No heavy lifting greater than 10 pounds for 2 weeks. No significant exercise for 2 weeks. No bathing with a catheter in place. Okay to shower. DISCHARGE INSTRUCTIONS * You will be contacted for follow-up next week for a voiding trial in the office with Dr. Arnett. Please contact our office if you do not hear from them by the end of the week * Call for fever greater than 100.4 Fahrenheit * It is normal to have some blood in around the catheter for the next few days, drink extra water to clear MEDICATIONS * Resume normal medications. Take Tylenol as needed for pain. Take narcotic pain medications for rescue pain. Take stool softeners on days when you take pain medications ANESTHESIA PRECAUTIONS Anesthesia and medications given during surgery remain in your body up to 24 hours. This may slow reaction time and/or decrease coordination. FOR THE NEXT 24 HOURS: - Have a responsible person with you - Avoid any activity that requires you to be alert and coordinated - DO NOT DRIVE a motor vehicle for 24 hours or as long as you are taking opoid pain medication - Do not drink alcoholic beverages - Do not smoke unattended Patient Date Escort Date RN Date Patient Instructions: Surg Dc, Urinary Catheter Bag Care, Leg Bag Care Dc Follow-up Care: Darrel Arnett MD [Provider Admit Priv/Credential, Urology] Referral Note: you will be contacted for followup and void trial in one weeks time Pavel Dumas MD [Primary Care Provider, Family Practice] Prescriptions: New hydrocodone-acetaminophen 5-325 mg tablet 1 tab PO Q4H PRN (Reason: Pain) Qty: 10 0RF ciprofloxacin HCl 500 mg tablet 500 mg PO BID 3 Days Qty: 6 0RF Continued Therapeutic-M 1 TAB tablet 1 tab PO DAILYWM 30 Days Qty: 30 0RF PreserVision AREDS 4,296 mcg-226 mg-90 mg capsule 1 cap PO BID levothyroxine [Synthroid] 112 mcg tablet 112 mcg PO DAILY 30 Days Qty: 90 3RF naproxen 500 mg tablet 500 mg PO BID Qty: 180 0RF ."
[2025-05-25 10:09] VITALS: BP 139/80; TEMP 98.1; O2SAT 95
== END 2025-05-25 10:00 | disposition home or self-care (01) ==
LOC: SDS 06:29 → MS3 06:29
PROVIDERS: ADMIT Urology; ATTEND Urology